=== PATIENT | female | born 1990 | race Caucasian/White ===

== ENCOUNTER 2020-08-23 16:58 | Outpatient (REF) | payer MEDICAID, SELFPAY | END 2020-08-23 16:59 | disposition home or self-care (01) | LOC: HO.LAB 16:58 | PROVIDERS: Visit Provider Internal Medicine | DX: Z20.822 Contact with and (suspected) exposure to COVID-19 (principal) | CPT/HCPCS: 36415; C9803; U0003 ==

== ENCOUNTER 2020-08-26 10:18 | Emergency (ER) | payer MEDICAID, SELFPAY ==
--- NOTE | 2020-08-26 11:36 | XR_ITS ---
EXAMINATION: XR CHEST CLINICAL INFORMATION: Cough with shortness of breath COMPARISON: November 15, 2019 and September 25, 2013 TECHNIQUE: AP portable view of the chest was obtained. FINDINGS: No significant abnormality is noted involving the heart, lungs, mediastinum, bony thorax or soft tissues. XR/XR chest 1V IMPRESSION: No acute disease.
[2020-08-26 11:50] VITALS: BP 138/79; PULSE 79; RESP 16; TEMP 36.8; O2SAT 97; BMI 34.9
--- NOTE | 2020-08-26 12:26 | ED.ASTHMA ---
HPI - Asthma General Chief Complaint: Asthma Stated Complaint: asthma, fever Time Seen by Provider: 08/26/20 11:26 Source: patient Mode of arrival: ambulatory History of Present Illness HPI Narrative: 30-year-old female with a past medical history of asthma presenting to the ED complaining of asthma exacerbation x4 days. Reports dry cough, chest tightness, SOB, rhinorrhea. Reports was recently tested for COVID-19 and found out negative today however symptoms persistent. Admist to relief with albuterol at home. Denies fever, chills, recent travel, [place] edema, sick contacts MD complaint: asthma attack and shortness of breath Related Data Previous Rx's Medication Instructions Recorded benzonatate [Tessalon Perles] 100 mg PO TID PRN #10 cap 08/26/20 fluticasone propionate [Flonase 2 spray INTRANASAL DAILY #9.9 ml 08/26/20 Allergy Relief] Allergies Allergy/AdvReac Type Severity Reaction Status Date / Time SEAFOOD Allergy Unknown ANAPHYLAXIS Uncoded 08/26/20 11:52 Review of Systems Review of Systems: Constitutional: No Weight loss, No Fever, No Chills ENT/Mouth: No Ear Pain, + Nasal Congestion, No Sinus Pain, No Hoarseness, + sore throat, + Rhinorrhea, No Swallowing Difficulty Cardiovascular: + Chest tightness, + SOB Respiratory: + Cough, No Sputum, No Wheezing Gastrointestinal: No Nausea, No Vomiting, No Diarrhea, No Constipation, No Abdominal pain Musculoskeletal: No joint pain, No Myalgias, No Joint Swelling Skin: No Skin Lesions, No rash Neuro: No Weakness, No Numbness, No Paresthesias Yes all other systems are reviewed and are negative [facility] Past Medical History Attestation statement: The following information was validated with the patient. Medical History (Updated 08/26/20 @ 12:31 by DOROTHY Hoskins) Asthma Social History Social History Advance Directives: No Advance Directives Information Provided: No Physical Exam Vital Signs: Vital Signs: Last Vital Signs Temp 98.3 F 08/26/20 11:50 Pulse 79 08/26/20 11:50 Resp 16 08/26/20 11:50 BP 138/79 08/26/20 11:50 Pulse Ox 97 08/26/20 11:50 Body Mass Index 34.9 Const: General: cooperative and healthy appearing Orientation/consciousness: patient oriented x3 Limitations: no limitations HENMT: Head: Yes normal to inspection Ears: hearing grossly normal bilaterally General nose exam: Normal external nose present Face and sinus: Yes normal facial exam Mouth: Normal oral and palatal mucosa present Throat: Yes posterior oropharynx normal, Yes tonsils normal, Yes uvula midline and No peritonsillar mass Eyes: General: appearance normal, both eyes and all related structures EOM: EOMs intact bilaterally Neck: Neck: Yes normal visual inspection and Yes no meningeal signs Resp: Effort & Inspection: normal respiratory effort and no stridor Auscultation: clear to auscultation bilaterally, no crackles, no rales, no rhonchi and no wheezes Cardio: Rate: regular rate Heart sounds: S1 normal heart sound present and S2 normal heart sound present GI: Inspection: Yes normal to inspection Palpation (GI): Soft to palpation and nontender Skin: Rashes: no rashes Wounds: no wounds Neuro: General: patient oriented x3 and no meningeal signs Gait exam (Neuro): Normal gait present Extrem: General: Yes normal to inspection Course Course Course Narrative: Chest x-ray unremarkable Results discussed with patient including worrisome signs symptoms and strict return precautions, she verbalized understanding feel safe for discharge with follow-up with PCP MDM - Asthma MDM Narrative Medical decision making narrative: On exam VSS, NAD/well-appearing, lungs CTA, nontoxic. Concern for viral syndrome/COVID-19 versus asthma exacerbation. Low concern for pneumonia, PE, or ACS without tachycardia or hypoxia Plan: Chest x-ray, COVID-19 testing, re-evaluate Discharge Plan Discharge Clinical Impression: Acute viral syndrome Patient Disposition: Home, Self-Care Instructions: Viral Syndrome (ED) Additional Instructions: Your chest x-ray was unremarkable today in the emergency department Continue taking your home prescribed inhaler/asthma medications You need to have close follow-up with her doctor Flonase it will help with her nasal congestion Tessalon Perles for cough, take as needed If her symptoms persist or worsen, your constant worsening chest pain, shortness of breath, high fevers unresolved Tylenol home return to the ED Based on your symptoms and history we have sent a COVID-19. Although your RESULT IS PENDING at this time. RESULTS should return within 2-7 days. At this time you will be contacted with either NEGATIVE OR POSITIVE results. -Please wait until we contact you for your results. At this time you will be okay for discharge. Please plan for self quarantine for up to 14 days. Do not expose yourself to others. You may not go to work. If testing does come back negative you may return to activities as long as you are no longer having any symptoms for at least 3 days. Please continue to follow cold instructions and wash your hands frequently. You may take Tylenol as directed on the bottle for pain or fever. Patient seen in the emergency department on 02/13/2020 and should be excused from work until negative test results AND until 72 hours without any symptoms AND at least 10 days have passed since symptoms first appeared or since last exposure to COVID-19 positive patient CDC Guidelines for home isolation: - Stay away from others - WEAR A MASK if you are sick AND STAY HOME - Cover your mouth and nose with a tissue when you cough or sneeze. Dispose of tissues in a lined trash can and wash your hands immediately with soap and water for at least 20 seconds. If soap and water are not available, clean hands with alcohol-based hand environmental construction engineer that contains at least 60% alcohol. - Clean your hands often with soap and water for at least 20 seconds - Avoid touching your eyes, nose and mouth with unwashed hands - Do not share dishes, drinking glasses, cups, eating utensils, towels, or bedding with other people in your home. After using these items, wash them thoroughly with soap and water or put in the assistant import manager. - Clean high-touch surfaces in your isolation area ( sick room and bathroom) every day; let a caregiver clean and disinfect high-touch surfaces in other areas of the home. Clean the area or item with soap and water or another detergent if it is dirty. Then, use a household disinfectant. - Limit contact with pets and animals: If you must care for a pet, wash your hands before and after interacting with them) Prescriptions: New fluticasone propionate [Flonase Allergy Relief] 50 mcg/actuation spray,suspension 2 spray intranasal DAILY Qty: 9.9 RF: 0 benzonatate [Tessalon Perles] 100 mg capsule 100 mg PO TID PRN (Reason: cough) Qty: 10 RF: 0 Referrals: Karolyn Kramer DO [Primary Care Provider] - 2 days
== END 2020-08-26 13:54 | disposition home or self-care (01) ==
PROVIDERS: Physician Assistant; Emergency Provider Emergency Medicine Emergency Medical Services; PCP Family Medicine
DX: B34.9 Viral infection, unspecified (principal); Z20.828 Contact with and (suspected) exposure to other viral communicable diseases; J45.909 Unspecified asthma, uncomplicated
CPT/HCPCS: 36415; 71045; 99283; U0003

== ENCOUNTER 2021-05-30 09:45 | Emergency (ER) | payer MEDICAID, SELFPAY ==
[2021-05-30 09:51] VITALS: BP 114/69; PULSE 79; RESP 18; TEMP 37; O2SAT 96; BMI 36.4
--- NOTE | 2021-05-30 10:25 | ED.SOB ---
HPI - SOB/Dyspnea General Chief Complaint: Dyspnea Stated Complaint: SOB Time Seen by Provider: 05/30/21 10:25 Source: patient Mode of arrival: ambulatory Limitations: no limitations History of Present Illness HPI Narrative: ran out of inhailers at home. [place] short of breath this morning. Patient still smoking. Patient had albuterol treatment in the ambulance MD elicited complaint: shortness of breath and asthma attack Pertinent past history: asthma Onset (ago): hour(s) Timing: improved Severity: mild Exacerbating factors: exertion Related Data Previous Rx's Medication Instructions Recorded albuterol sulfate 90 mcg/actuation 1 inh INHALATION QID PRN #8.5 g 05/30/21 aerosol inhaler Allergies Allergy/AdvReac Type Severity Reaction Status Date / Time SEAFOOD Allergy Severe ANAPHYLAXIS Uncoded 05/06/20 16:00 sea food Allergy Unknown anaphylaxis Uncoded 10/13/15 00:00 Review of Systems Constitutional: Constitutional: Reports no additional constitutional complaints Eyes: Eyes: Reports no additional eye complaints ENT: Denies dizziness Cardiovascular: Cardiovascular: Reports no additional cardiovascular complaints Respiratory: Respiratory: Reports as per HPI Gastrointestinal: Gastrointestinal: Reports no additional gastrointestinal complaints Genitourinary: Genitourinary: Reports no additional female genitourinary complaints Musculoskeletal: Musculoskeletal: Reports no additional musculoskeletal complaints Integumentary/Breasts: Skin/Breast: Denies rash Neurologic: Reports system reviewed and no additional complaints, except as documented, Denies dizziness and Denies Sensory deficit (Neuro) Psychiatric: Psychiatric: Denies anxiety PMFSH Social History Social History Patient Tobacco Use Status: Current everyday Tobacco user Use of substances other than those prescribed or required for medical reasons: No Advance Directives: No Advance Directives Information Provided: No Physical Exam Vital Signs: Vital Signs: Last Vital Signs Temp 98.6 F 05/30/21 09:51 Pulse 75 05/30/21 10:47 Resp 18 05/30/21 10:47 BP 146/93 H 05/30/21 10:47 Pulse Ox 98 05/30/21 10:47 Body Mass Index 36.4 Const: General: healthy appearing Nutritional Appearance: average body habitus Orientation/consciousness: oriented to person and patient oriented x3 Limitations: no limitations HENMT: Head: Yes normal to inspection Ears: external ears normal General nose exam: Normal external nose present Mouth: Normal oral and palatal mucosa present and oropharynx normal Throat: Yes posterior oropharynx normal Eyes: General: appearance normal, both eyes and all related structures Neck: Other: supple Neck: Yes normal visual inspection Chest: Chest palpation & inspection: normal inspection of the chest Resp: Other: mild wheeze bilaterally Cardio: Jugular venous distension: no JVD Rate: regular rate Rhythm: regular rhythm Heart sounds: S1 normal heart sound present and S2 normal heart sound present GI: Inspection: Yes normal to inspection Palpation (GI): Soft to palpation, nontender and No hepatosplenomegaly present Auscultation: normal bowel sounds : General: Yes no CVA tenderness Back/Spine/Pelvis: Back: no CVA tenderness Skin: General skin exam: no rashes or lesions noted Neuro: General: oriented to person and patient oriented x3 Cranial nerves: Yes CN's II-XII intact bilaterally Motor exam (neuro): 5/5 motor strength present throughout Sensory Exam: No Sensory deficit (Neuro) Extrem: General: Yes normal to inspection Psych: Appearance: grossly normal Course Reevaluation(s) Reevaluation #1: good air movement, minimal wheeze will dc home on albuterol Time: 11:23 MDM - SOB/Dyspnea Lab Data Labs: Lab Results 05/30/21 Range/Units 10:46 COVID-19 ([facility]) Negative (Negative) COVID-19 Clin Com See Note Discharge Plan Discharge Clinical Impression: Asthma with exacerbation Qualifiers: Asthma severity: mild Asthma persistence: intermittent Qualified Code(s): J45.21 - Mild intermittent asthma with (acute) exacerbation Patient Disposition: Home, Self-Care Instructions: Asthma (ED) Prescriptions: New albuterol sulfate 90 mcg/actuation HFA aerosol inhaler 1 inh inhalation QID PRN (Reason: shortness of breath or wheezing) Qty: 8.5 RF: 0 Referrals: Karolyn Kramer DO [Primary Care Provider] - 1 week
[2021-05-30] MEDS: Albuterol Sulfate 90 MCG 8 GM INHALER 4 PUFF INHALE (10:44)
[2021-05-30 10:47] VITALS: BP 146/93; PULSE 75; RESP 18; O2SAT 98
[2021-05-30 11:06] LABS: COVID-19 Test Negative (Negative); IDNOW Serial# 9DD0AD1C
== END 2021-05-30 11:57 | disposition home or self-care (01) ==
PROVIDERS: Emergency Provider Emergency Medicine; PCP Family Medicine
DX: J45.21 Mild intermittent asthma with (acute) exacerbation (principal); Z20.822 Contact with and (suspected) exposure to COVID-19
CPT/HCPCS: 36415; 87635; 99284

== ENCOUNTER 2023-02-28 17:07 | Emergency (ER) | payer MEDICAID, SELFPAY | END 2023-02-28 21:04 | disposition left against medical advice (07) | LOC: HO.ED 20:03 | PROVIDERS: Emergency Provider Emergency Medicine | DX: R06.02 Shortness of breath (principal); F41.9 Anxiety disorder, unspecified ==

== ENCOUNTER 2023-02-28 19:58 | Emergency (ER) | payer MEDICAID, SELFPAY ==
--- NOTE | ~2023-02-28 | XR_ITS ---
EXAMINATION: XR CHEST CLINICAL INFORMATION: Wheezing. COMPARISON: Chest radiograph 08/26/2020. TECHNIQUE: 2 views of the chest were obtained. FINDINGS: No significant abnormality is noted involving the heart, lungs, mediastinum, bony thorax or soft tissues. XR/XR chest 2V IMPRESSION: Unremarkable examination.
[2023-02-28 20:15] VITALS: BP 134/87; PULSE 106; RESP 18; TEMP 36.6; O2SAT 100; BMI 36.3
--- NOTE | 2023-02-28 20:15 | ED_ITS ---
HPI - General Adult General Chief complaint: Dyspnea Stated complaint: Asthma attack Time Seen by Provider: 02/28/23 22:15 Source: patient Mode of arrival: ambulatory History of Present Illness HPI narrative: This is a 33-year-old female who arrives with several days of worsening shortness of breath and has known asthma, but has run out of her medications. She denies any fever, chills but has had increased cough but otherwise no GI or symptoms. Related Data Previous Rx's Medication Instructions Recorded benzonatate 100 mg capsule 100 mg PO TID PRN cough #10 caps 08/26/20 (Tessalon Perles) fluticasone propionate 50 2 spray intranasal DAILY #9.9 mL 08/26/20 mcg/actuation nasal spray,suspension (Flonase Allergy Relief) albuterol sulfate 90 mcg/actuation 1 inh inhalation QID PRN shortness 05/30/21 aerosol inhaler of breath or wheezing #8.5 grams montelukast 10 mg tablet 10 mg PO BEDTIME #20 tabs 05/30/21 (Singulair) prednisone 50 mg tablet 50 mg PO DAILY 4 days #4 tabs 02/28/23 Allergies Allergy/AdvReac Type Severity Reaction Status Date / Time SEAFOOD Allergy Severe ANAPHYLAXIS Uncoded 02/28/23 20:18 sea food Allergy Unknown anaphylaxis Uncoded 02/28/23 20:18 Review of Systems Review of Systems: Pertinent positives and negatives as stated in HPI [facility] Past Medical History Source: nursing notes reviewed Medical History Asthma Social History Social History Alcohol intake: never Patient Tobacco Use Status: Current everyday Tobacco user Smoked in Last 30 Days: Yes Use of substances other than those prescribed or required for medical reasons: No Advance Directives: No Advance Directives Information Provided: No Physical Exam ED Vital Signs: Vital Signs - 24 hr 02/28/23 20:15 02/28/23 22:18 02/28/23 22:42 Temperature 97.9 F 98.2 F 98.5 F Pulse Rate 106 H 94 95 Respiratory Rate 18 16 18 Blood Pressure 134/87 118/70 130/73 Pulse Oximetry 100 97 95 Oxygen Delivery Method Room Air Room Air Room Air 02/28/23 23:18 02/28/23 23:46 02/28/23 23:45 Temperature 99.9 F 99.9 F Pulse Rate 99 95 94 Respiratory Rate 20 16 16 Blood Pressure 136/81 136/81 Pulse Oximetry 95 98 Oxygen Delivery Method Room Air Room Air BMI result Body Mass Index 36.3 VITAL SIGNS: Reviewed. GENERAL: Well developed, well nourished, in no acute distress. HEAD: Normocephalic/atraumatic EYES: PERRLA, EOMI EARS: Ext canals without abnormality, TMs non-bulging and non-erythematous NOSE: Nares patent bilateral OROPHARYNX: no oral lesions noted, posterior pharynx clear and non-erythematous without noted tonsillar enlargement/erythema/exudates NECK: Supple, no adenopathy LUNGS: Good inspiratory effort without decrease in breath sounds but noted expiratory wheeze bilaterally and mild tachypnea but no increased work of breathing. SpO2<95> CARDIOVASCULAR: Regular rate and rhythm without noted murmurs ABDOMEN: Soft, non-tender, non-distended with bowel sounds. MUSCULOSKELETAL: No tenderness, deformities, or effusions noted on gross inspection. EXTREMITIES: No cyanosis, clubbing or edema. SKIN: Inspection of the skin reveals no rashes NEUROLOGIC: Alert and oriented x 4. Strength and sensation to light touch were grossly intact x 4. Course Course Course Narrative: This is a rapid medical exam: Additional HPI, ROS, PE not included below will be deferred to primary provider. Patient is a 33-year-old female with history of asthma presenting to ED with complaint of shortness of breath, has used her rescue inhaler a lot today. Does not have a nebulizer at home. Patient reports smoking 3-4 cigarettes daily, smoked one cigarette today. Also complains of midsternal chest pain. Symptoms began today. Denies fevers. Inspiratory and expiratory wheezing as well as decreased lung sounds throughout. Plan: EKG, labs, CXR Medications Administered Discontinued Medications Generic Name Dose Route Start Last Admin Trade Name Freq PRN Reason Stop Dose Admin Albuterol Sulfate 2 puff 02/28/23 22:55 02/28/23 23:17 Albuterol Sulfate 90 Mcg 8 Gm Inhaler INHALE 02/28/23 22:56 2 puff ONCE ONE Administration Potassium Chloride 60 meq 02/28/23 22:58 02/28/23 23:44 Potassium Chloride Er 20 Meq Tab.Er.Prt PO 02/28/23 22:59 60 meq ONCE ONE Administration Prednisone 50 mg 02/28/23 22:55 02/28/23 23:14 Prednisone 10 Mg Tablet PO 02/28/23 22:56 50 mg ONCE ONE Administration Medical Decision Making Medical Decision Making [facility] Narrative: 33-year-old female with history and clinical presentation, DDX: Mild asthma exacerbation without hypoxia, no clinical suspicion for pneumonia, PE, anemia. I reviewed all investigations and the hematologic indices are grossly within normal limits except an expected eosinophilia-5.3. On chemistry indices there is a noted mild hypokalemia which will be repleted with 60 mEq of potassium chloride. Viral testing is negative, chest x-ray without evidence to suggest pneumonia otherwise my interpretation is in agreement with radiology's impression. Differential Diagnosis Differential Diagnoses: The differential diagnosis associated with the presentation includes Admission/Observation Consideration of admission/observation: Escalation of care including admission/observation considered Lab Data [facility] Lab Attestation statement: I reviewed the patient's lab results. Please see the discussion above 02/28/23 20:28 02/28/23 20:29 Labs: Lab Results 02/28/23 02/28/23 02/28/23 Range/Units 20:28 20:28 20:28 WBC 8.3 (4.8-10.8) X10*3/uL RBC 4.38 (4.20-5.50) X10*6/uL Hgb 12.6 (12.0-16.0) g/dl Hct 37.8 (37.0-47.0) % MCV 86.3 (80.0-98.0) fL MCH 28.8 (27.0-33.0) pg MCHC 33.3 (31.0-35.0) g/dl RDW 13.7 (11.0-16.0) % Plt Count 260 (160-400) X10*3/uL MPV 9.4 (9.4-12.3) fL Immature Gran % (Auto) 0.2 (0.0-0.4) % Neut % (Auto) 61.0 (45-73) % Lymph % (Auto) 25.8 (20-40) % [place] % (Auto) 7.1 (2-11) % Eos % (Auto) 5.3 H (0-4) % Baso % (Auto) 0.6 (0-2) % Lymph # (Auto) 2.1 (1.2-4.9) X10*3/uL [place] # (Auto) 0.6 (0.1-1.2) X10*3/uL Eos # (Auto) 0.4 (0.0-0.4) X10*3/uL Baso # (Auto) 0.1 (0.0-0.2) X10*3/uL Abs Immat Gran (auto) 0.02 (0.00-0.03) X10*3/uL Absolute Neuts (auto) 5.1 (2.0-8.3) x10*3/uL Absolute Nucleated RBC 0.000 (0.0-0.012) X10*3/uL Nucleated RBC % (auto) 0.0 (0.0-0.2) /100WBC Sodium (135-145) mmol/L Potassium (3.3-5.1) mmol/L Chloride (96-108) mmol/L Carbon Dioxide (22-29) mmol/L Anion Gap (12-20) BUN (9-16) mg/dL Creatinine (0.5-1.4) mg/dL Estim Creat Clear Calc Estimated GFR Random Glucose (60-115) mg/dL Calcium (8.4-10.2) mg/dL Magnesium (1.6-2.6) mg/dL Troponin I High Sens < 2.7 (<3.5-17.0) ng/L COVID-19 ([facility]ON) (Negative) COVID-19 Clin Com Influenza Type A (TERESSA) Negative (Negative) Influenza Type B (TERESSA) Negative (Negative) Influenza A & B Note See Note 02/28/23 02/28/23 Range/Units 20:29 20:29 WBC (4.8-10.8) X10*3/uL RBC (4.20-5.50) X10*6/uL Hgb (12.0-16.0) g/dl Hct (37.0-47.0) % MCV (80.0-98.0) fL MCH (27.0-33.0) pg MCHC (31.0-35.0) g/dl RDW (11.0-16.0) % Plt Count (160-400) X10*3/uL MPV (9.4-12.3) fL Immature Gran % (Auto) (0.0-0.4) % Neut % (Auto) (45-73) % Lymph % (Auto) (20-40) % [place] % (Auto) (2-11) % Eos % (Auto) (0-4) % Baso % (Auto) (0-2) % Lymph # (Auto) (1.2-4.9) X10*3/uL [place] # (Auto) (0.1-1.2) X10*3/uL Eos # (Auto) (0.0-0.4) X10*3/uL Baso # (Auto) (0.0-0.2) X10*3/uL Abs Immat Gran (auto) (0.00-0.03) X10*3/uL Absolute Neuts (auto) (2.0-8.3) x10*3/uL Absolute Nucleated RBC (0.0-0.012) X10*3/uL Nucleated RBC % (auto) (0.0-0.2) /100WBC Sodium 142 (135-145) mmol/L Potassium 3.1 L (3.3-5.1) mmol/L Chloride 110 H (96-108) mmol/L Carbon Dioxide 21 L (22-29) mmol/L Anion Gap 14 (12-20) BUN 6 L (9-16) mg/dL Creatinine 0.82 (0.5-1.4) mg/dL Estim Creat Clear Calc 112.6 Estimated GFR > 60 Random Glucose 112 (60-115) mg/dL Calcium 8.9 (8.4-10.2) mg/dL Magnesium 1.9 (1.6-2.6) mg/dL Troponin I High Sens (<3.5-17.0) ng/L COVID-19 ([facility]ON) Negative (Negative) COVID-19 Clin Com See Note Influenza Type A (TERESSA) (Negative) Influenza Type B (TERESSA) (Negative) Influenza A & B Note Independent Interpretation I performed an independent interpretation of an: EKG Interpretation: Sinus tachycardia, HR-104, no STEMI, VT/QRS/QTC is within normal limits. Radiology Impression Radiologist Impression: No pneumonia, otherwise my interpretation is in agreement with radiology's impression. External Record Review External record reviewed: Outpatient record and Prior outpatient labs Chronic Conditions Patient?s care impacted by: Other Asthma Discharge Plan Discharge Clinical Impression: Asthma with exacerbation Patient Disposition: Home, Self-Care Instructions: Asthma (ED) Additional Instructions: 1. I recommend smoking cessation. 2. I recommend that you start taking [id number] Claritin and Flonase for control over seasonal allergies. 3. Complete the short course of steroids as prescribed. 4. Please use the inhaler, 2 puffs, every 46 hours as needed for shortness of breath. 5. Keep your scheduled appointment on March 09. Return to the ER for any worsening symptoms. Prescriptions: New prednisone 50 mg tablet 50 mg PO DAILY 4 Days Qty: 4 0RF No Action fluticasone propionate [Flonase Allergy Relief] 50 mcg/actuation spray,suspension 2 spray intranasal DAILY Qty: 9.9 0RF Rx Instructions: administer into each nostril benzonatate [Tessalon Perles] 100 mg capsule 100 mg PO TID PRN (Reason: cough) Qty: 10 0RF albuterol sulfate 90 mcg/actuation HFA aerosol inhaler 1 inh inhalation QID PRN (Reason: shortness of breath or wheezing) Qty: 8.5 0RF montelukast [Singulair] 10 mg tablet 10 mg PO BEDTIME Qty: 20 0RF Referrals: Karolyn Kramer DO [Primary Care Provider] - Interventions: ED Discharge Assessment Last Done: 02/28/23 23:46 Discharge Date/Time: 02/28/23 23:47
--- NOTE | 2023-02-28 20:17 | ECG_ITS ---
Test Reason : SOB Blood Pressure : / mmHG Vent. Rate : 104 BPM Atrial Rate : 104 BPM P-R Int : 158 ms QRS Dur : 078 ms QT Int : 334 ms P-R-T Axes : 046 050 -08 degrees QTc Int : 439 ms Sinus tachycardia Nonspecific T wave abnormality When compared with ECG of 28-JUN-2015 19:23, No significant change was found Referred By: Jessie Mena Electronically Signed By:BK ALMEIDA MD
[2023-02-28 20:35] LABS: MANUAL DIFF FLAG NO
[2023-02-28 20:38] LABS: Basophils Absolute Auto 0.1 X10*3/uL (0.0-0.2); Basophils Percent Auto 0.6 % (0-2); Eosinophils Absolute Auto 0.4 X10*3/uL (0.0-0.4); Eosinophils Percent Auto 5.3 % (0-4); Hematocrit 37.8 % (37.0-47.0); Hemoglobin 12.6 g/dl (12.0-16.0); Imm Gran Abs Auto 0.02 X10*3/uL (0.00-0.03); Imm Gran Pct Auto 0.2 % (0.0-0.4); Lymphocytes Absolute Auto 2.1 X10*3/uL (1.2-4.9); Lymphocytes Percent Auto 25.8 % (20-40); Mean Corpuscular HGB Conc 33.3 g/dl (31.0-35.0); Mean Corpuscular Hemoglobin 28.8 pg (27.0-33.0); Mean Corpuscular Volume 86.3 fL (80.0-98.0); Mean Platelet Volume 9.4 fL (9.4-12.3); Monocytes Absolute Auto 0.6 X10*3/uL (0.1-1.2); Monocytes Percent Auto 7.1 % (2-11); Neutrophils Absolute Auto 5.1 x10*3/uL (2.0-8.3); Platelet Count 260 X10*3/uL (160-400); Red Blood Count 4.38 X10*6/uL (4.20-5.50); Red Cell Distribution Width 13.7 % (11.0-16.0); White Blood Count 8.3 X10*3/uL (4.8-10.8)
[2023-02-28 20:52] LABS: Anion Gap 14 (12-20); Blood Urea Nitrogen 6 mg/dL (9-16); Calcium 8.9 mg/dL (8.4-10.2); Carbon Dioxide 21 mmol/L (22-29); Chloride 110 mmol/L (96-108); Creatinine Clr Calc Pharmacy 112.6; Estimated Glomerular Filt Rate > 60; Glucose Random 112 mg/dL (60-115); Potassium 3.1 mmol/L (3.3-5.1); Sodium 142 mmol/L (135-145)
[2023-02-28 20:58] LABS: COVID-19 Test Negative (Negative); IDNOW Serial# 08D9AD1C
[2023-02-28 20:58] LABS: IDNOW Serial# BCCEAD1C; Influenza A Negative (Negative); Influenza B2 Negative (Negative)
[2023-02-28 21:02] LABS: Troponin-I High Sensitivity < 2.7 ng/L (<3.5-17.0)
[2023-02-28 22:18] VITALS: BP 118/70; PULSE 94; RESP 16; TEMP 36.8; O2SAT 97
[2023-02-28 22:42] VITALS: BP 130/73; PULSE 95; RESP 18; TEMP 36.9; O2SAT 95
[2023-02-28] MEDS: predniSONE 10 MG TABLET 50 MG PO (23:14)
[2023-02-28] MEDS: Albuterol Sulfate 90 MCG 8 GM INHALER 2 PUFF INHALE (23:17)
[2023-02-28 23:18] VITALS: PULSE 99; RESP 20; O2SAT 97
[2023-02-28 23:29] LABS: Magnesium 1.9 mg/dL (1.6-2.6)
[2023-02-28] MEDS: Potassium Chloride ER 20 MEQ TAB.ER.PRT 60 MEQ PO (23:44)
[2023-02-28 23:45] VITALS: BP 136/81; PULSE 94; RESP 16; TEMP 37.7; O2SAT 98
[2023-02-28 23:46] VITALS: BP 136/81; PULSE 95; RESP 16; TEMP 37.7; O2SAT 95
== END 2023-02-28 23:47 | disposition home or self-care (01) ==
PROVIDERS: Registered Nurse Emergency; Emergency Provider Student in an Organized Health Care Education/Training Program; PCP Family Medicine
DX: J45.901 Unspecified asthma with (acute) exacerbation (principal); Z20.822 Contact with and (suspected) exposure to COVID-19; F17.200 Nicotine dependence, unspecified, uncomplicated; Z79.899 Other long term (current) drug therapy
CPT/HCPCS: 36415; 71046; 80048; 83735; 84484; 85025; 87502; 87635; 93005; 94640; 99284; 99285

== ENCOUNTER → 2023-02-28 20:17 | Outpatient (BNV) | payer MEDICAID, SELFPAY | PROVIDERS: Emergency Provider Student in an Organized Health Care Education/Training Program; PCP Family Medicine; Visit Provider Internal Medicine Cardiovascular Disease | DX: R00.0 Tachycardia, unspecified (principal) | CPT/HCPCS: 93010 ==

== ENCOUNTER 2023-03-01 12:40 | Emergency (ER) | payer MEDICAID, SELFPAY ==
--- NOTE | ~2023-03-01 | XR_ITS ---
EXAMINATION: XR CHEST CLINICAL INFORMATION: Shortness of breath COMPARISON: 02/28/2023 TECHNIQUE: Frontal view of the chest was obtained. FINDINGS: No significant abnormality is noted involving the heart, lungs, mediastinum, bony thorax or soft tissues. XR/XR chest 1V IMPRESSION: Unremarkable examination.
[2023-03-01 12:47] VITALS: BP 110/78; BP 146/75; PULSE 110; PULSE 120; RESP 20; TEMP 37.3; O2SAT 98; BMI 35.3
--- NOTE | 2023-03-01 12:52 | ED_ITS ---
HPI - Asthma General Chief Complaint: Asthma Stated Complaint: sob, chest tight Time Seen by Provider: 03/01/23 12:52 Source: patient and EMS Mode of arrival: EMS Limitations: no limitations History of Present Illness HPI Narrative: Patient is a 33 year old assigned female at with a history of asthma presenting to the emergency department today with continued asthma exacerbation. Patient states that she was seen here yesterday for an asthma exacerbation, was feeling better, and now feels poorly again. Patient states that she does not have an inhaler at home. Patient states that she didn't pick her prednsione up until today. Patient denies any dizziness, lightheadedness, abdominal pain, nausea, vomiting, fever, chills, blurry vision, double vision, loss of vision, chest pain, difficulty breathing, shortness of breath, back pain, night sweats, pain with urination, increased urinary frequency, increased urinary urgency, blood in her urine or stool, syncope or a near syncopal episode, recent trauma or falls, bowel incontinence, bladder incontinence, bowel retention, bladder retention, or any other complaints at this time. MD complaint: asthma attack Onset (ago): day(s) (2) Severity: mild Context: ran out of meds and medication non-compliance Associated symptoms: dry cough Asthma History: childhood onset Related Data Current Asthma Therapy: inhaled bronchodilator and recent oral steroid Previous Rx's Medication Instructions Recorded benzonatate 100 mg capsule 100 mg PO TID PRN cough #10 caps 08/26/20 (Tessalday Marroquin) fluticasone propionate 50 2 spray intranasal DAILY #9.9 mL 08/26/20 mcg/actuation nasal spray,suspension (Flonase Allergy Relief) albuterol sulfate 90 mcg/actuation 1 inh inhalation QID PRN shortness 05/30/21 aerosol inhaler of breath or wheezing #8.5 grams montelukast 10 mg tablet 10 mg PO BEDTIME #20 tabs 05/30/21 (Singulair) prednisone 50 mg tablet 50 mg PO DAILY 4 days #4 tabs 02/28/23 albuterol sulfate 1.25 mg/3 mL 1.25 mg (3 mL) inhalation QID PRN 03/01/23 solution for nebulization shortness of breath or wheezing #90 mL albuterol sulfate 90 mcg/actuation 1 inh inhalation QID PRN shortness 03/01/23 aerosol inhaler of breath or wheezing #8.5 grams Allergies Allergy/AdvReac Type Severity Reaction Status Date / Time SEAFOOD Allergy Severe ANAPHYLAXIS Uncoded 02/28/23 20:18 sea food Allergy Unknown anaphylaxis Uncoded 02/28/23 20:18 Review of Systems Constitutional: Constitutional: Reports no additional constitutional complaints, Denies chills, Denies fever(s) and Denies night sweats Eyes: Eyes: Reports no additional eye complaints, Denies blurry vision, Denies change in vision, Denies diplopia, Denies eye discharge, Denies loss of vision and Denies eye pain ENT: Denies dizziness Cardiovascular: Cardiovascular: Reports no additional cardiovascular complaints, Denies chest pain, Denies lightheadedness, Denies Loss of Consciousness and Denies dyspnea Respiratory: Respiratory: Reports no additional respiratory complaints, Reports cough, Denies dyspnea and Reports wheezing Gastrointestinal: Gastrointestinal: Reports no additional gastrointestinal complaints, Denies abdominal pain, Denies melena, Denies hematochezia, Denies change in bowel habits and Denies change in stool character Genitourinary: Genitourinary: Denies hematuria, Denies urinary frequency, Denies dysuria, Denies urinary incontinence, Denies urinary hesitancy and Denies urinary urgency Musculoskeletal: Musculoskeletal: Reports no additional musculoskeletal complaints, Denies numbness and Denies tingling Neurologic: Denies dizziness, Denies loss of vision, Denies numbness and Denies tingling Psychiatric: Psychiatric: Reports no additional psychiatric complaints Endocrine: Endocrine: Reports no additional endocrine complaints Hematologic/Lymphatic: Hematologic/Lymphatic: Reports no additional hematologic/lymphatic complaints Allergic/Immunologic: Allergic/Immunologic: Reports no additional allergic/immunologic complaints and Reports wheezing PMFSH Past Medical History Attestation statement: The following information was validated with the patient. Source: old records reviewed and nursing notes reviewed Medical History Asthma Social History Social History Alcohol intake: never Patient Tobacco Use Status: Current everyday Tobacco user Smoked in Last 30 Days: Yes Use of substances other than those prescribed or required for medical reasons: No Advance Directives: No Advance Directives Information Provided: Yes Patient : No Physical Exam Vital Signs: Vital Signs: Last Vital Signs Temp 99.1 F 03/01/23 12:47 Pulse 108 H 03/01/23 14:03 Resp 29 H 03/01/23 14:03 BP 120/82 03/01/23 14:03 Pulse Ox 96 03/01/23 14:03 O2 Del Method Room Air 03/01/23 14:03 Oxygen Flow Rate 5 03/01/23 12:47 BMI result Body Mass Index 35.3 Const: General: cooperative, no acute distress, alert and awake Nutritional Appearance: well nourished Orientation/consciousness: patient oriented x3 Limitations: no limitations HEENT: Head: Yes normal to inspection and Yes atraumatic Ears: hearing grossly normal bilaterally and external ears normal General nose exam: Normal external nose present, no nasal discharge noted and no epistaxis Face and sinus: Yes normal facial exam, No abrasion and No laceration Mouth: Normal oral and palatal mucosa present, no drooling and no muffled voice Eyes: General: appearance normal, both eyes and all related structures Periorbital: periorbital findings normal Eyelids: Yes eyelids normal Conjunctivae: conjunctivae normal Pupils: Equal, round and reactive pupils present EOM: EOMs intact bilaterally Neck: Neck: Yes normal visual inspection, Yes full ROM and Yes no lymphadenopathy Chest: Chest palpation & inspection: normal inspection of the chest Resp: Effort & Inspection: normal respiratory effort and able to speak in complete sentences Auscultation: wheezes scattered wheezes Cardio: Rate: regular rate Rhythm: regular rhythm GI: Inspection: Yes normal to inspection Neuro: General: patient oriented x3 and moves all extremities Cranial nerves: Yes Equal, round and reactive pupils present Cognition (Neuro): n ormal cognition Motor exam (neuro): 5/5 motor strength present throughout Sensory Exam: Normal double simultaneous stimulation for sensation Coordination: [id number] test normal Extrem: General: Yes normal to inspection, Yes full ROM and Yes capillary refill normal Psych: Appearance: grossly normal Mental Status: mental status grossly normal Affect: normal affect Attitude: cooperative Thought process: Normal thought process present Thought content: Normal thought content present Insight: Good insight present (Psych) Medications Administered Discontinued Medications Generic Name Dose Route Start Last Admin Trade Name Freq PRN Reason Stop Dose Admin Albuterol Sulfate 7.5 mg/ 0 mg 03/01/23 12:55 03/01/23 13:09 Albuterol/Ipratropium 3 ml INHALE 03/01/23 12:56 10 each ONCE ONE Administration Magnesium Sulfate 2 gm in 50 mls @ 25 mls/hr 03/01/23 12:55 03/01/23 15:51 Magnesium Sulfate/H2o IV 03/01/23 14:54 Infused ONCE ONE Infusion Methylprednisolone Sodium Succinate 60 mg 03/01/23 12:52 03/01/23 14:02 Methylprednisolone Sod Succ 125 Mg/2 Ml Vial IM 03/01/23 12:53 60 mg ONCE ONE Administration Medical Decision Making Medical Decision Making [facility] Narrative: Patient is a 33 year old assigned female at with a history of asthma presenting to the emergency department today with a persistent asthma exacerbation. Patient's physical exam showed wheezing but was otherwise unremarkable. Patient's labs showed an elevated white blood cell count of 13.1 but were otherwise grossly normal. This elevated WBC count is likely secondary to recent steroid use. Patient's chest x-ray showed no acute process. I explained my physical exam findings as well as all test results to the patient. I answered all questions asked by the patient. Patient received IV magnesium, solu-medrol, and a duoneb breathing treatment which she stated helped her symptoms significantly. Patient was feeling better and ready for discharge when she got up to go to the bathroom and felt like she was wheezing again and requested another breathing treatment. Patient's disposition pending re- evaluation after an additional breathing treatment. Patient signed out to kala [facility] [place] [facility]. Differential Diagnosis Differential Diagnoses: The differential diagnosis associated with the presentation includes asthma exacerbation asthma attack URI Viral illness Wheezing Cough Admission/Observation Consideration of admission/observation: Escalation of care including admission/observation considered Patient's disposition pending re-evaluation after repeat breathing treatment. Lab Data [facility] Lab Attestation statement: I reviewed the patient's lab results. My interpretation of these results are in the [facility] portion of this chart. 03/01/23 14:34 03/01/23 14:34 Labs: Lab Results 03/01/23 03/01/23 03/01/23 Range/Units 14:34 14:34 14:34 WBC 13.1 H (4.8-10.8) X10*3/uL RBC 4.55 (4.20-5.50) X10*6/uL Hgb 13.0 (12.0-16.0) g/dl Hct 38.8 (37.0-47.0) % MCV 85.3 (80.0-98.0) fL MCH 28.6 (27.0-33.0) pg MCHC 33.5 (31.0-35.0) g/dl RDW 13.9 (11.0-16.0) % Plt Count 272 (160-400) X10*3/uL MPV 9.4 (9.4-12.3) fL Immature Gran % (Auto) 0.3 (0.0-0.4) % Neut % (Auto) 93.5 H (45-73) % Lymph % (Auto) 4.0 L (20-40) % [place] % (Auto) 2.1 (2-11) % Eos % (Auto) 0.0 (0-4) % Baso % (Auto) 0.1 (0-2) % Lymph # (Auto) 0.5 L (1.2-4.9) X10*3/uL [place] # (Auto) 0.3 (0.1-1.2) X10*3/uL Eos # (Auto) 0.0 (0.0-0.4) X10*3/uL Baso # (Auto) 0.0 (0.0-0.2) X10*3/uL Abs Immat Gran (auto) 0.04 H (0.00-0.03) X10*3/uL Absolute Neuts (auto) 12.3 H (2.0-8.3) x10*3/uL Absolute Nucleated RBC 0.000 (0.0-0.012) X10*3/uL Nucleated RBC % (auto) 0.0 (0.0-0.2) /100WBC Smear Tech's Comments VERIFIED Sodium 138 (135-145) mmol/L Potassium 3.3 (3.3-5.1) mmol/L Chloride 108 (96-108) mmol/L Carbon Dioxide 18 L (22-29) mmol/L Anion Gap 15 (12-20) BUN 7 L (9-16) mg/dL Creatinine 0.80 (0.5-1.4) mg/dL Estim Creat Clear Calc 113.6 Estimated GFR > 60 Random Glucose 156 H (60-115) mg/dL Calcium 9.8 D (8.4-10.2) mg/dL Total Bilirubin 0.9 (0.0-1.0) mg/dL AST 18 (5-31) U/L ALT 28 (0-31) U/L Alkaline Phosphatase 58 (39-117) U/L Total Protein 7.0 (6.5-8.0) g/dL Albumin 4.1 (3.5-5.0) g/dL COVID-19 (HEORN) (Negative) COVID-19 Clin Com Influenza Type A (TERESSA) Negative (Negative) Influenza Type B (TERESSA) Negative (Negative) Influenza A & B Note See Note 03/01/23 Range/Units 14:36 WBC (4.8-10.8) X10*3/uL RBC (4.20-5.50) X10*6/uL Hgb (12.0-16.0) g/dl Hct (37.0-47.0) % MCV (80.0-98.0) fL MCH (27.0-33.0) pg MCHC (31.0-35.0) g/dl RDW (11.0-16.0) % Plt Count (160-400) X10*3/uL MPV (9.4-12.3) fL Immature Gran % (Auto) (0.0-0.4) % Neut % (Auto) (45-73) % Lymph % (Auto) (20-40) % [place] % (Auto) (2-11) % Eos % (Auto) (0-4) % Baso % (Auto) (0-2) % Lymph # (Auto) (1.2-4.9) X10*3/uL [place] # (Auto) (0.1-1.2) X10*3/uL Eos # (Auto) (0.0-0.4) X10*3/uL Baso # (Auto) (0.0-0.2) X10*3/uL Abs Immat Gran (auto) (0.00-0.03) X10*3/uL Absolute Neuts (auto) (2.0-8.3) x10*3/uL Absolute Nucleated RBC (0.0-0.012) X10*3/uL Nucleated RBC % (auto) (0.0-0.2) /100WBC Smear Tech's Comments Sodium (135-145) mmol/L Potassium (3.3-5.1) mmol/L Chloride (96-108) mmol/L Carbon Dioxide (22-29) mmol/L Anion Gap (12-20) BUN (9-16) mg/dL Creatinine (0.5-1.4) mg/dL Estim Creat Clear Calc Estimated GFR Random Glucose (60-115) mg/dL Calcium (8.4-10.2) mg/dL Total Bilirubin (0.0-1.0) mg/dL AST (5-31) U/L ALT (0-31) U/L Alkaline Phosphatase (39-117) U/L Total Protein (6.5-8.0) g/dL Albumin (3.5-5.0) g/dL COVID-19 (HERON) Negative (Negative) COVID-19 Clin Com See Note Influenza Type A (TERESSA) (Negative) Influenza Type B (TERESSA) (Negative) Influenza A & B Note Independent Interpretation I performed an independent interpretation of an: Plain X-Ray Interpretation: My interpretation is in agreement with the radiologist's impression of this imaging study. EXAMINATION: XR CHEST CLINICAL INFORMATION: Shortness of breath COMPARISON: 02/28/2023 TECHNIQUE: Frontal view of the chest was obtained. FINDINGS: No significant abnormality is noted involving the heart, lungs, mediastinum, bony thorax or soft tissues. XR/XR chest 1V IMPRESSION: Unremarkable examination. Dictated By: Javier Bolaños MD Signed By: Electronically signed by Javier Bolaños MD 03/01/23 7490 Radiology Impression Discussion of test interpretation with radiology: I have reviewed the radiologist's reading. Independent Historian Clinical information obtained from an independent historian. History obtained from or confirmed by: EMS (EMS provided additional history and confirmed the history provided by the patient. ) External Record Review External record reviewed: Other (reviewed patient's ED visit from 02/28/2023) Prescription Management I considered prescription management with: Other (patient prescribed inhaler and liquid for nebulizer.) Chronic Conditions Patient?s care impacted by: Other (asthma) Critical Care Time Critical Care Time Critical Care Time: Yes Total Critical Care Time: 30 Attestation: I spent 30 minutes of Critical Care Time with this patient. This does not include time spent on separately reported billable procedures. Discharge Plan Discharge Clinical Impression: Asthma with acute exacerbation Instructions: Asthma (DC) Additional Instructions: Continue taking your prednisone as previously prescribed. Follow up with your primary care provider. Return to the emergency department immediately if your symptoms worsen or if you develop any dizziness, shortness of breath, difficulty breathing, chest pain, blurry vision, loss of vision, nausea, vomiting, abdominal pain, fever, chills, back pain, or any other complaints. Prescriptions: New albuterol sulfate 90 mcg/actuation HFA aerosol inhaler 1 inh inhalation QID PRN (Reason: shortness of breath or wheezing) Qty: 8.5 0RF albuterol sulfate 1.25 mg/3 mL solution for nebulization 1.25 mg inhalation QID PRN (Reason: shortness of breath or wheezing) Qty: 90 0RF No Action fluticasone propionate [Flonase Allergy Relief] 50 mcg/actuation spray, suspension 2 spray intranasal DAILY Qty: 9.9 0RF Rx Instructions: administer into each nostril benzonatate [Tessalon Perles] 100 mg capsule 100 mg PO TID PRN (Reason: cough) Qty: 10 0RF albuterol sulfate 90 mcg/actuation HFA aerosol inhaler 1 inh inhalation QID PRN (Reason: shortness of breath or wheezing) Qty: 8.5 0RF montelukast [Singulair] 10 mg tablet 10 mg PO BEDTIME Qty: 20 0RF prednisone 50 mg tablet 50 mg PO DAILY 4 Days Qty: 4 0RF Referrals: Karolyn Kramer DO [Primary Care Provider] - Stand Alone Forms: Work/School Release Print Language: Cypriot
[2023-03-01 13:09] VITALS: PULSE 109; RESP 15; O2SAT 96
[2023-03-01] MEDS: Albuterol Sulfate 7.5 MG, Albuterol/Iprat 2.5/0.5MG 3 ML 3 ML INHALE ×2 (13:09→16:12)
[2023-03-01] MEDS: Magnesium Sulfate/H2O 2 GM/50 ML PIGGYBACK IV (14:02)
[2023-03-01] MEDS: methylPREDNISolone Sod Succ 125 MG/2 ML VIAL 60 MG IM (14:02)
[2023-03-01 14:03] VITALS: BP 120/82; PULSE 108; RESP 29; O2SAT 96
[2023-03-01 14:47] LABS: Basophils Percent Auto 0.1 % (0-2); Hematocrit 38.8 % (37.0-47.0); Imm Gran Abs Auto 0.04 X10*3/uL (0.00-0.03); Imm Gran Pct Auto 0.3 % (0.0-0.4); Lymphocytes Absolute Auto 0.5 X10*3/uL (1.2-4.9); MANUAL DIFF FLAG SCAN; Mean Corpuscular HGB Conc 33.5 g/dl (31.0-35.0); Mean Corpuscular Hemoglobin 28.6 pg (27.0-33.0); Mean Corpuscular Volume 85.3 fL (80.0-98.0); Mean Platelet Volume 9.4 fL (9.4-12.3); Monocytes Absolute Auto 0.3 X10*3/uL (0.1-1.2); Monocytes Percent Auto 2.1 % (2-11); Neutrophils Absolute Auto 12.3 x10*3/uL (2.0-8.3); Neutrophils Percent Auto 93.5 % (45-73); Platelet Count 272 X10*3/uL (160-400); Red Blood Count 4.55 X10*6/uL (4.20-5.50); Red Cell Distribution Width 13.9 % (11.0-16.0); SCAN SMEAR FLAG 1; White Blood Count 13.1 X10*3/uL (4.8-10.8)
[2023-03-01 14:58] LABS: Alanine Aminotransferase 28 U/L (0-31); Albumin Level 4.1 g/dL (3.5-5.0); Alkaline Phosphatase 58 U/L (39-117); Anion Gap 15 (12-20); Aspartate Amino Transferase 18 U/L (5-31); Bilirubin Total 0.9 mg/dL (0.0-1.0); Blood Urea Nitrogen 7 mg/dL (9-16); Calcium 9.8 mg/dL (8.4-10.2); Carbon Dioxide 18 mmol/L (22-29); Chloride 108 mmol/L (96-108); Creatinine Clr Calc Pharmacy 113.6; Estimated Glomerular Filt Rate > 60; Glucose Random 156 mg/dL (60-115); Potassium 3.3 mmol/L (3.3-5.1); Sodium 138 mmol/L (135-145)
[2023-03-01 15:04] LABS: IDNOW Serial# BCCEAD1C; Influenza A Negative (Negative); Influenza B2 Negative (Negative)
[2023-03-01 15:04] LABS: COVID-19 Test Negative (Negative); IDNOW Serial# 08D9AD1C
[2023-03-01 15:36] LABS: SLIDE REVIEW VERIFIED
[2023-03-01 16:12] VITALS: PULSE 102; RESP 17; O2SAT 95
== END 2023-03-01 17:32 | disposition home or self-care (01) ==
PROVIDERS: Physician Assistant Medical; Emergency Provider Emergency Medicine Emergency Medical Services; PCP Family Medicine
DX: J45.901 Unspecified asthma with (acute) exacerbation (principal); R06.02 Shortness of breath; R07.89 Other chest pain; F17.200 Nicotine dependence, unspecified, uncomplicated; Z71.6 Tobacco abuse counseling; Z20.822 Contact with and (suspected) exposure to COVID-19; Z20.828 Contact with and (suspected) exposure to other viral communicable diseases; Z79.899 Other long term (current) drug therapy
CPT/HCPCS: 36415; 71045; 80053; 85025; 87502; 87635; 94640; 96365; 96366; 96372; 99284; 99285; J2930; J3475

== ENCOUNTER 2023-06-27 18:35 | Outpatient (REF) | payer MEDICAID, SELFPAY ==
[2023-06-27 19:51] LABS: Influenza A PCR NEGATIVE (Negative); Influenza B PCR NEGATIVE (Negative); Resp Syncy Virus RNA Qual PCR NEGATIVE (Negative); SARS COV2 PCR INHOUSE NEGATIVE (Negative)
== END 2023-06-27 18:36 | disposition home or self-care (01) ==
LOC: HO.HHCLNP 18:35
PROVIDERS: Visit Provider Emergency Medicine
DX: Z11.52 Encounter for screening for COVID-19 (principal); J02.0 Streptococcal pharyngitis
CPT/HCPCS: 0241U

== ENCOUNTER 2023-08-30 13:12 | Outpatient (REF) | payer MEDICAID, SELFPAY ==
[2023-08-30 16:09] LABS: MANUAL DIFF FLAG NO
[2023-08-30 16:23] LABS: Basophils Percent Auto 0.5 % (0-2); Eosinophils Absolute Auto 0.3 X10*3/uL (0.0-0.4); Eosinophils Percent Auto 3.7 % (0-4); Hematocrit 39.4 % (37.0-47.0); Hemoglobin 12.4 g/dl (12.0-16.0); Imm Gran Abs Auto 0.02 X10*3/uL (0.00-0.03); Imm Gran Pct Auto 0.2 % (0.0-0.4); Lymphocytes Absolute Auto 2.5 X10*3/uL (1.2-4.9); Mean Corpuscular HGB Conc 31.5 g/dl (31.0-35.0); Mean Corpuscular Hemoglobin 26.4 pg (27.0-33.0); Monocytes Absolute Auto 0.5 X10*3/uL (0.1-1.2); Monocytes Percent Auto 6.7 % (2-11); Neutrophils Absolute Auto 4.7 x10*3/uL (2.0-8.3); Neutrophils Percent Auto 57.9 % (45-73); Platelet Count 415 X10*3/uL (160-400); Red Blood Count 4.69 X10*6/uL (4.20-5.50); Red Cell Distribution Width 14.8 % (11.0-16.0); White Blood Count 8.1 X10*3/uL (4.8-10.8)
[2023-08-30 16:24] LABS: Estimated Average Glucose 97 mg/dL
[2023-08-30 16:48] LABS: Alanine Aminotransferase 10 U/L (0-31); Albumin Level 4.1 g/dL (3.5-5.0); Alkaline Phosphatase 56 U/L (39-117); Anion Gap 11 (12-20); Aspartate Amino Transferase 14 U/L (5-31); Bilirubin Direct 0.2 mg/dL (0.0-0.5); Bilirubin Total 0.4 mg/dL (0.0-1.0); Blood Urea Nitrogen 10 mg/dL (9-16); Carbon Dioxide 26 mmol/L (22-29); Chloride 107 mmol/L (96-108); Cholesterol 147 mg/dL (<200); Estimated Glomerular Filt Rate > 60; Glucose Random 81 mg/dL (60-115); HDL Cholesterol 47 mg/dL (>40); LDL Cholesterol Calculated 79 mg/dL (<100); Potassium 3.7 mmol/L (3.3-5.1); Sodium 140 mmol/L (135-145); Total Protein 7.4 g/dL (6.5-8.0); Triglycerides 106 mg/dL (<150)
[2023-08-30 16:52] LABS: Free T4 (Free Thyroxine) 0.82 ng/dL (0.71-1.85); Thyroid Stimulating Hormone 0.63 uIU/mL (0.32-4.0); Vitamin D 25-OH Total 9.8 ng/mL (>30)
[2023-08-31 08:10] LABS: HBS Num1 0.42 mIU/mL (0-7.99); HBsAGNum1 0.23 S/CO (0.00-0.99); HIV AB/AG Nonreactive (Nonreactive); HIV Num 1 0.05 S/CO (0.00-0.99); Hepatitis B Surface Antigen Negative (Negative); ~HepC Num1 0.21 S/CO (0.00-0.79); ~Hepatitis B Surface Antibody NONREACTIVE (Nonreactive); ~Hepatitis C Antibody Nonreactive (Nonreactive)
[2023-08-31 09:40] LABS: CT PCR NOT DETECTED (Not Detect.); NG PCR NOT DETECTED (Not Detect.)
[2023-09-01 02:43] LABS: Herpes Simplex Type 2 IgG <0.90 index
[2023-09-03 10:14] LABS: RPR Rapid Plasma Reagin NON-REACTIVE (NON-REACTIVE)
== END 2023-08-30 13:13 | disposition home or self-care (01) ==
LOC: HO.HHCL 13:12
PROVIDERS: Visit Provider Family Medicine
DX: Z00.00 Encounter for general adult medical examination without abnormal findings (principal)
CPT/HCPCS: 0353U; 80048; 80061; 80076; 82306; 83036; 84439; 84443; 85025; 86592; 86695; 86696; 86706; 86803; 87340; 87389

== ENCOUNTER 2023-11-16 16:04 | Outpatient (REF) | payer MEDICAID, SELFPAY ==
[2023-11-17 15:33] LABS: C. trachomatis RNA TMA NOT DETECTED (NOT DETECTED); N. gonorrhoeae RNA TMA NOT DETECTED (NOT DETECTED)
== END 2023-11-16 16:05 | disposition home or self-care (01) ==
LOC: HO.HHCLNP 16:04
PROVIDERS: Visit Provider Family Medicine
DX: Z11.3 Encounter for screening for infections with a predominantly sexual mode of transmission (principal); J02.9 Acute pharyngitis, unspecified
CPT/HCPCS: 36415; 87491; 87591

== ENCOUNTER 2024-02-05 11:54 | Emergency (ER) | payer MEDICAID, SELFPAY ==
--- NOTE | ~2024-02-05 | CT_ITS ---
EXAMINATION: CT ABDOMEN AND PELVIS WITHOUT CONTRAST CLINICAL INFORMATION: Right flank pain and right lower abdominal pain. COMPARISON: None available. TECHNIQUE: Multidetector volumetric imaging was performed from the superior aspect of the liver through the pubic symphysis. Sagittal and coronal reformatted images were obtained on the technologist's workstation. This CT examination was performed using dose optimization techniques as appropriate, variously including the following: *Automated exposure control *Adjustment of mA and/or kV according to patient size (this includes techniques or standardized protocols for targeted exams where dose is matched to indication/reason for exam; i.e. extremities or head) *Use of iterative reconstruction technique DLP: 707 mGy-cm FINDINGS: LUNG BASES: No pulmonary consolidation or pleural effusion. HEPATOBILIARY: The liver is grossly normal for noncontrast examination. No evidence of a suspicious liver lesion. Gallbladder has a normal appearance. No dilated bile ducts. PANCREAS: No edema, pancreatic ductal dilatation or mass. SPLEEN: Normal. ADRENAL GLANDS: Normal. KIDNEYS AND URETERS: Kidneys are normal in size. 0.2 cm calyceal stone within the lower pole of the left kidney. No evidence of a right renal stone. The right ureter is minimally dilated and there is a slight fullness of the right renal pelvis but no caliectasis or perinephric edema. Multiple phleboliths are seen within the pelvis, including a phlebolith projecting just posteroinferior to the distal right ureter near the ureterovesical junction (image 87, series 3). However, no stones are identified within the lumen of the ureter. BLADDER: Normal. BOWEL AND PERITONEUM: Stomach and small bowel are unremarkable. No dilated loops. The appendix is normal. No colonic wall thickening or mesenteric fat stranding. No free fluid or pneumoperitoneum. ABDOMINAL WALL: Unremarkable. VASCULATURE: Unremarkable. LYMPH NODES: No pathologic sized lymph nodes in the abdomen or pelvis. No inguinal lymphadenopathy. PELVIC VISCERA: No uterine or adnexal mass. No pelvic fluid collection. MUSCULOSKELETAL: Unremarkable. CT/CT abdomen pelvis wo IV con IMPRESSION: * A small 0.2 cm stone is seen within the lower pole of the left kidney. * No right renal stones. The right ureter is slightly dilated but there is no visible ureteral stones. The cause of the minimal ureteral dilatation is uncertain. No stones are seen within the bladder. There is no periureteral or perinephric edema. If the patient has transient right-sided pain, then it might be possible that a very small stone was recently passed. * The urinary bladder wall has normal thickness and there is no perivesical edema. There are no imaging findings to suggest cystitis.
[2024-02-05 12:22] VITALS: BP 131/74; PULSE 103; RESP 20; TEMP 37.5; O2SAT 100; BMI 34.4
--- NOTE | 2024-02-05 12:26 | ED_ITS ---
HPI - General Adult General Chief complaint: Abdominal Pain Stated complaint: Back & abd pain Time Seen by Provider: 02/05/24 15:51 Source: patient Mode of arrival: ambulatory Limitations: no limitations History of Present Illness ED Provider: Magui Siegel HPI narrative: 33-year-old female presents to the ER for evaluation of right sided middle and lower back pain and right flank pain that started 2 weeks ago and has been getting worse. She states she initially thought it was from her mattress, so she change her mattress but has had ongoing pain. It is worse with movement. It is located in her middle and lower back on the right side and radiates to the flank and right groin area. No nausea, vomiting, diarrhea. No urinary symptoms. No fever or chills. No vaginal discharge. MD complaint: Right sided back pain Onset (ago): week(s) (2) Location: back Radiation: abdomen Severity: severe Quality: stabbing Pain Consistency: constant Relieving factors: rest Exacerbating factors: movement Treatments prior to arrival: none Related Data Previous Rx's ?Medication ?Instructions ?Recorded benzonatate 100 mg capsule 100 mg PO TID PRN cough #10 caps 08/26/20 (Veronica Marroquin) fluticasone propionate 50 2 spray intranasal DAILY #9.9 mL 08/26/20 mcg/actuation nasal spray,suspension (Flonase Allergy Relief) albuterol sulfate 90 mcg/actuation 1 inh inhalation QID PRN shortness 05/30/21 aerosol inhaler of breath or wheezing #8.5 grams montelukast 10 mg tablet 10 mg PO BEDTIME #20 tabs 05/30/21 (Singulair) prednisone 50 mg tablet 50 mg PO DAILY 4 days #4 tabs 02/28/23 albuterol sulfate 1.25 mg/3 mL 1.25 mg (3 mL) inhalation QID PRN 03/01/23 solution for nebulization shortness of breath or wheezing #90 mL albuterol sulfate 90 mcg/actuation 1 inh inhalation QID PRN shortness 03/01/23 aerosol inhaler of breath or wheezing #8.5 grams cefuroxime axetil 250 mg tablet 250 mg PO BID 7 days #14 tabs 02/05/24 cyclobenzaprine 10 mg tablet 10 mg PO TID PRN muscle spasm #10 02/05/24 tabs ibuprofen 600 mg tablet 600 mg PO Q8H PRN fever or pain 02/05/24 #14 tabs lidocaine 5 % topical patch 1 patch topical DAILY #15 ea 02/05/24 Allergies Allergy/AdvReac Type Severity Reaction Status Date / Time SEAFOOD Allergy Severe ANAPHYLAXIS Uncoded 02/05/24 12:25 sea food Allergy Unknown anaphylaxis Uncoded 02/05/24 12:25 Review of Systems 2 Review of Systems: Yes all other systems are reviewed and are negative [facility] Past Medical History Medical History Asthma Social History Social History Alcohol intake: never Patient Tobacco Use Status: Current everyday Tobacco user Advance Directives: No Advance Directives Information Provided: No Physical Exam ED Vital Signs: Vital Signs - 24 hr 02/05/24 12:22 02/05/24 15:51 02/05/24 16:21 Temperature 99.5 F 101 F H 100.8 F H Pulse Rate 103 H 87 Respiratory Rate 20 18 Blood Pressure 131/74 127/62 Pulse Oximetry 100 98 Oxygen Delivery Method Room Air Room Air 02/05/24 17:25 02/05/24 17:31 Temperature 99.2 F 99.2 F Pulse Rate 87 Respiratory Rate 18 Blood Pressure 127/62 Pulse Oximetry 98 Oxygen Delivery Method Room Air BMI result Body Mass Index 34.4 Appearance: Alert. Oriented X3. No acute distress. Head: normocephalic, atraumatic. Eyes: Pupils equal, round and reactive to light. ENT: Pharynx normal. No tonsillar swelling or exudate. Neck: Normal inspection. Neck supple. CVS: Normal heart rate and rhythm. Pulses normal. Respiratory: No respiratory distress. Breath sounds normal. Abdomen: Soft and nontender. +BS x4 Back: normal inspection. Soft tissue tenderness of the right lower thoracic area and right upper lumbar area. Positive CVA tenderness on the right side. Pain with flexion and lateral rotation. No midline tenderness. Skin: Skin warm and dry. Normal skin color. Normal skin turgor. No rashes. Extremities: No lower extremity edema. No joint swelling. Neuro/psych: Oriented X 3. No motor deficit. No sensory deficit. CN II-XII intact. Normal speech and cognition. Course Course Course Narrative: RME: done by DOROTHY Hopson. Patient presents to ED for right flank pain radiating to right lower abdomen for the past 2 weeks. Patient denies any trauma dysuria or hematuria. Patient states also right lower quadrant abdominal pain. Patient states no fever or chills. Positive for right CVA flank and right lower quadrant tenderness on palpation. UA labs ordered Reevaluation(s) Reevaluation #1: I received patient in sign-out from Yun GUARDADO pending urinalysis. I personally evaluated patient. Exam is positive for minimal right. Abdomen nontender to palpation. CBC without leukocytosis or left shift. Microcytic anemia with H&H 10.7/33.8. Chemistry without acute electrolyte abnormality requiring intervention. Normal renal and liver function. Beta hCG undetectable. No . CT abdomen/pelvis showing small 0.2 cm stone in the lower pole of the left kidney. The right ureter is slightly dilated however no visible your ureteral stone to indicate obstruction. Patient may have passed stone. Urine positive for infection. Discussed results with patient. Ceftin sent to pharmacy for treatment. She is now afebrile. Advised to alternate tylenol/ motrin at home. Patient has remained stable throughout ED visit today. Discussed worrisome signs and symptoms and when to return to the ED. All questions answered at this time. Patient is agreeable with disposition and stable for discharge. - Nel Godoy PA-C Time: 17:29 Medications Administered Discontinued Medications Generic Name Dose Route Start Last Admin Trade Name Freq PRN Reason Stop Dose Admin Ketorolac Tromethamine 30 mg 02/05/24 16:05 02/05/24 16:17 Ketorolac Tromethamine 30 Mg/Ml Vial IM 02/05/24 16:06 30 mg ONCE ONE Administration Medical Decision Making Medical Decision Making [facility] Narrative: 33-year-old female presents to the ER for evaluation of 2 weeks of right-sided back pain that radiates to her abdomen. No urinary symptoms except some bladder fullness that is intermittent, but new the last few days. On arrival to the ER patient was slightly tachycardic. She developed a fever of 101. Lab work showed some mild microcytic anemia but no leukocytosis. Differential Diagnosis Differential Diagnoses: The differential diagnosis associated with the presentation includes Pyelonephritis, kidney stone, UTI, musculoskeletal pain, pancreatitis, cholecystitis Lab Data [facility] Lab Attestation statement: I reviewed the patient's lab results. 02/05/24 12:32 02/05/24 12:32 Labs: Lab Results 02/05/24 02/05/24 Range/Units 12:32 16:08 WBC 9.5 (4.8-10.8) X10*3/uL RBC 4.30 (4.20-5.50) X10*6/uL Hgb 10.7 L (12.0-16.0) g/dl Hct 33.8 L (37.0-47.0) % MCV 78.6 L (80.0-98.0) fL MCH 24.9 L (27.0-33.0) pg MCHC 31.7 (31.0-35.0) g/dl RDW 17.3 H (11.0-16.0) % Plt Count 296 D (160-400) X10*3/uL MPV 9.2 L (9.4-12.3) fL Immature Gran % (Auto) 0.3 (0.0-0.4) % Neut % (Auto) 72.2 (45-73) % Lymph % (Auto) 15.2 L (20-40) % [place] % (Auto) 11.2 H (2-11) % Eos % (Auto) 0.9 (0-4) % Baso % (Auto) 0.2 (0-2) % Lymph # (Auto) 1.5 (1.2-4.9) X10*3/uL [place] # (Auto) 1.1 (0.1-1.2) X10*3/uL Eos # (Auto) 0.1 (0.0-0.4) X10*3/uL Baso # (Auto) 0.0 (0.0-0.2) X10*3/uL Abs Immat Gran (auto) 0.03 (0.00-0.03) X10*3/uL Absolute Neuts (auto) 6.9 (2.0-8.3) x10*3/uL Absolute Nucleated RBC 0.000 (0.0-0.012) X10*3/uL Nucleated RBC % (auto) 0.0 (0.0-0.2) /100WBC PT 12.2 (11.1-13.3) SEC INR 1.0 (0.9-1.1) APTT 30.1 (26.0-36.8) SEC Sodium 141 (135-145) mmol/L Potassium 3.4 (3.3-5.1) mmol/L Chloride 108 (96-108) mmol/L Carbon Dioxide 27 (22-29) mmol/L Anion Gap 9 L (12-20) BUN 4 L (9-16) mg/dL Creatinine 0.88 (0.5-1.4) mg/dL Estim Creat Clear Calc 101.9 Estimated GFR > 60 Random Glucose 93 (60-115) mg/dL Calcium 9.2 (8.4-10.2) mg/dL Total Bilirubin 0.5 (0.0-1.0) mg/dL AST 14 (5-31) U/L ALT 11 (0-31) U/L Alkaline Phosphatase 55 (39-117) U/L Total Protein 6.8 (6.5-8.0) g/dL Albumin 3.7 (3.5-5.0) g/dL Beta HCG, Quant < 2 mIU/mL Urine Color Yellow Urine Appearance Hazy Urine pH 6.0 (5.0-9.0) Ur Specific [place] 1.010 (1.005-1.025) Urine Protein Trace (Neg-Trace) mg/dL Urine Glucose (UA) Negative (Negative) mg/dL Urine Ketones Negative (Negative) mg/dL Urine Blood Moderate (2+) H (Negative) Urine Nitrite Negative (Negative) Ur Leukocyte Esterase Moderate (2+) H (Negative) Urine RBC 0-2 (0-2) /HPF Urine WBC 11-20 (0-5) /HPF Ur Squamous Epith Cells 3-5 (0-2) /HPF Urine Bacteria 4+ (None Seen) Hyaline Casts 0-2 (0-2) /LPF Independent Interpretation I performed an independent interpretation of an: CT Scan Interpretation: No visible ureteral stone, no hydronephrosis, agree with radiology read Radiology Impression Discussion of test interpretation with radiology: I have reviewed the radiologist's reading. Radiologist Impression: CT/CT abdomen pelvis wo IV con IMPRESSION: * A small 0.2 cm stone is seen within the lower pole of the left kidney. * No right renal stones. The right ureter is slightly dilated but there is no visible ureteral stones. The cause of the minimal ureteral dilatation is uncertain. No stones are seen within the bladder. There is no periureteral or perinephric edema. If the patient has transient right-sided pain, then it might be possible that a very small stone was recently passed. * The urinary bladder wall has normal thickness and there is no perivesical edema. There are no imaging findings to suggest cystitis. External Record Review External record reviewed: Outpatient record, Prior outpatient labs and Prior outpatient radiology Prescription Management I considered prescription management with: Pain Medication and Antibiotic Critical Care Time Critical Care Time Critical Care Time: No Discharge Plan Discharge Clinical Impression: Urinary tract infection Back pain Qualifiers: Back pain location: low back pain Chronicity: acute Back pain laterality: right Sciatica presence: without sciatica Qualified Code(s): M54.50 - Low back pain, unspecified Patient Disposition: Home, Self-Care Instructions: Urinary Tract Infection in Women (DC), Acute Low Back Pain (ED) Additional Instructions: Your blood work today is reassuring. Your urine today was positive for infection. Ceftin is an antibiotic that has been sent to your pharmacy. Take this as prescribed and do not miss any doses. You must complete the entire course of antibiotics. If you do not, there is a risk of the infection coming back or worsening. Follow up with your primary care provider as needed. If you develop a fever or new/ worsening symptoms call 911 or come back to the ER for further evaluation. In addition, Flexeril as a muscle relaxer that has been sent to your pharmacy for you to take as needed for muscle spasm. You may also use lidocaine patches. You may apply these to painful areas. Take Motrin and Tylenol as needed for fever or pain. Prescriptions: New cyclobenzaprine 10 mg tablet 10 mg PO TID PRN (Reason: muscle spasm) Qty: 10 0RF ibuprofen 600 mg tablet 600 mg PO Q8H PRN (Reason: fever or pain) Qty: 14 0RF lidocaine 5 % adhesive patch,medicated 1 patch topical DAILY Qty: 15 0RF Rx Instructions: leave on most painful area for up to 12 hrs cefuroxime axetil 250 mg tablet 250 mg PO BID 7 Days Qty: 14 0RF No Action fluticasone propionate [Flonase Allergy Relief] 50 mcg/actuation spray,suspension 2 spray intranasal DAILY Qty: 9.9 0RF Rx Instructions: administer into each nostril benzonatate [Tessalon Perles] 100 mg capsule 100 mg PO TID PRN (Reason: cough) Qty: 10 0RF albuterol sulfate 90 mcg/actuation HFA aerosol inhaler 1 inh inhalation QID PRN (Reason: shortness of breath or wheezing) Qty: 8.5 0RF montelukast [Singulair] 10 mg tablet 10 mg PO BEDTIME Qty: 20 0RF prednisone 50 mg tablet 50 mg PO DAILY 4 Days Qty: 4 0RF albuterol sulfate 90 mcg/actuation HFA aerosol inhaler 1 inh inhalation QID PRN (Reason: shortness of breath or wheezing) Qty: 8.5 0RF albuterol sulfate 1.25 mg/3 mL solution for nebulization 1.25 mg inhalation QID PRN (Reason: shortness of breath or wheezing) Qty: 90 0RF Stand Alone Forms: Work/School Release Interventions: ED Discharge Assessment Last Done: 02/05/24 17:31 Discharge Date/Time: 02/05/24 17:37 Print Language: Cook Islander
[2024-02-05 12:36] LABS: MANUAL DIFF FLAG NO
[2024-02-05 12:38] LABS: Basophils Percent Auto 0.2 % (0-2); Eosinophils Absolute Auto 0.1 X10*3/uL (0.0-0.4); Eosinophils Percent Auto 0.9 % (0-4); Hematocrit 33.8 % (37.0-47.0); Hemoglobin 10.7 g/dl (12.0-16.0); Imm Gran Abs Auto 0.03 X10*3/uL (0.00-0.03); Imm Gran Pct Auto 0.3 % (0.0-0.4); Lymphocytes Absolute Auto 1.5 X10*3/uL (1.2-4.9); Lymphocytes Percent Auto 15.2 % (20-40); Mean Corpuscular HGB Conc 31.7 g/dl (31.0-35.0); Mean Corpuscular Hemoglobin 24.9 pg (27.0-33.0); Mean Corpuscular Volume 78.6 fL (80.0-98.0); Mean Platelet Volume 9.2 fL (9.4-12.3); Monocytes Absolute Auto 1.1 X10*3/uL (0.1-1.2); Monocytes Percent Auto 11.2 % (2-11); Neutrophils Absolute Auto 6.9 x10*3/uL (2.0-8.3); Neutrophils Percent Auto 72.2 % (45-73); Platelet Count 296 X10*3/uL (160-400); Red Cell Distribution Width 17.3 % (11.0-16.0); White Blood Count 9.5 X10*3/uL (4.8-10.8)
[2024-02-05 12:44] LABS: Prothrombin Time 12.2 SEC (11.1-13.3)
[2024-02-05 12:46] LABS: Partial Thromboplastin Time 30.1 SEC (26.0-36.8)
[2024-02-05 13:24] LABS: Alanine Aminotransferase 11 U/L (0-31); Albumin Level 3.7 g/dL (3.5-5.0); Alkaline Phosphatase 55 U/L (39-117); Anion Gap 9 (12-20); Aspartate Amino Transferase 14 U/L (5-31); Bilirubin Total 0.5 mg/dL (0.0-1.0); Blood Urea Nitrogen 4 mg/dL (9-16); Calcium 9.2 mg/dL (8.4-10.2); Carbon Dioxide 27 mmol/L (22-29); Chloride 108 mmol/L (96-108); Creatinine Clr Calc Pharmacy 101.9; Estimated Glomerular Filt Rate > 60; Glucose Random 93 mg/dL (60-115); HCG Quantitative < 2 mIU/mL; Potassium 3.4 mmol/L (3.3-5.1); Sodium 141 mmol/L (135-145); Total Protein 6.8 g/dL (6.5-8.0)
[2024-02-05 15:51] VITALS: BP 127/62; PULSE 87; RESP 18; TEMP 38.3; O2SAT 98
[2024-02-05] MEDS: Ketorolac Tromethamine 30 MG/ML VIAL IM (16:17)
[2024-02-05 16:21] VITALS: TEMP 38.2
[2024-02-05 16:48] LABS: Color Urine Yellow; Glucose Urine UA Negative (Negative); Leukocyte Esterase Urine Moderate (2+) (Negative); Nitrite Urine Negative (Negative); UMIC TRIGGER UACC YES; Urine Blood Moderate (2+) (Negative); Urine Ketones Negative (Negative); Urine Protein Trace mg/dL (Neg-Trace)
[2024-02-05 17:05] LABS: Appearance Urine Hazy
[2024-02-05 17:07] LABS: Bacteria Urine 4+ (None Seen); Hyaline Casts Urine 0-2 /LPF (0-2); RBC Urine 0-2 /HPF (0-2); UACC Culture Trigger YES
[2024-02-05 17:25] VITALS: TEMP 37.3
[2024-02-05 17:31] VITALS: BP 127/62; PULSE 87; RESP 18; TEMP 37.3; O2SAT 98
== END 2024-02-05 17:37 | disposition home or self-care (01) ==
PROVIDERS: Physician Assistant; Emergency Provider Emergency Medicine; PCP Family Medicine
DX: N39.0 Urinary tract infection, site not specified (principal); B96.20 Unspecified Escherichia coli [E. coli] as the cause of diseases classified elsewhere; N20.0 Calculus of kidney; M54.50 Low back pain, unspecified; R10.9 Unspecified abdominal pain; J45.909 Unspecified asthma, uncomplicated
CPT/HCPCS: 36415; 74176; 80053; 81001; 81003; 84702; 85025; 85610; 85730; 87086; 87088; 87186; 96372; 99284; J1885

== ENCOUNTER 2024-06-29 15:02 | Emergency (ER) | payer MEDICAID, SELFPAY ==
[2024-06-29] VITALS (8 sets, daily range): BP systolic 0–140; BP diastolic 0–84; PULSE 94–110; RESP 18–20; TEMP -17.7–38; O2SAT 93–98; BMI 34.9
--- NOTE | ~2024-06-29 | XR_ITS ---
EXAMINATION: XR CHEST CLINICAL INFORMATION: Shortness of breath COMPARISON: 03/01/2023 TECHNIQUE: 2 views of the chest were obtained. FINDINGS: Heart, mediastinum, pulmonary vessels within normal limits. Vague opacity is identified in the right apex no air bronchograms, vascular congestion, pleural effusions or pneumothoraces. Bony structures are intact. XR/XR chest 2V IMPRESSION: Vague right apical opacity. Consider short-term radiographic follow-up. Electronically signed by: Corinne Banuelos MD 06/29/2024 03:48 PM ARPITA VALDEZ
--- NOTE | 2024-06-29 15:12 | ECG_ITS ---
Test Reason : SOB Blood Pressure : / mmHG Vent. Rate : 100 BPM Atrial Rate : 100 BPM P-R Int : 144 ms QRS Dur : 076 ms QT Int : 328 ms P-R-T Axes : 029 046 002 degrees QTc Int : 423 ms Normal sinus rhythm Minimal voltage criteria for LVH, may be normal variant ( Sokolow-Parker ) Nonspecific ST and T wave abnormality Abnormal ECG When compared with ECG of 28-FEB-2023 20:19, No significant change was found Referred By: Fátima Alicea Electronically Signed By:Jesús Craig
--- NOTE | 2024-06-29 16:20 | ED_ITS ---
HPI - SOB/Dyspnea General Chief Complaint: Dyspnea Stated Complaint: SOB Time Seen by Provider: 06/29/24 16:01 Source: patient and EMS Mode of arrival: EMS Limitations: no limitations History of Present Illness ED Provider: Dr. Irma Sheth HPI Narrative: Patient comes to the emergency room complaining of asthma exacerbations for several days. Patient states that her albuterol inhaler is not working as it usually does, using her inhaler every couple of hours. Today patient called EMS, they gave her a DuoNeb. Patient denies fever chills denies chest pain. Related Data Previous Rx's ?Medication ?Instructions ?Recorded benzonatate 100 mg capsule 100 mg PO TID PRN cough #10 caps 08/26/20 (Tessalon Perles) fluticasone propionate 50 2 spray intranasal DAILY #9.9 mL 08/26/20 mcg/actuation nasal spray,suspension (Flonase Allergy Relief) albuterol sulfate 90 mcg/actuation 1 inh inhalation QID PRN shortness 05/30/21 aerosol inhaler of breath or wheezing #8.5 grams montelukast 10 mg tablet 10 mg PO BEDTIME #20 tabs 05/30/21 (Singulair) prednisone 50 mg tablet 50 mg PO DAILY 4 days #4 tabs 02/28/23 albuterol sulfate 1.25 mg/3 mL 1.25 mg (3 mL) inhalation QID PRN 03/01/23 solution for nebulization shortness of breath or wheezing #90 mL albuterol sulfate 90 mcg/actuation 1 inh inhalation QID PRN shortness 03/01/23 aerosol inhaler of breath or wheezing #8.5 grams cefuroxime axetil 250 mg tablet 250 mg PO BID 7 days #14 tabs 02/05/24 cyclobenzaprine 10 mg tablet 10 mg PO TID PRN muscle spasm #10 02/05/24 tabs ibuprofen 600 mg tablet 600 mg PO Q8H PRN fever or pain 02/05/24 #14 tabs lidocaine 5 % topical patch 1 patch topical DAILY #15 ea 02/05/24 albuterol sulfate 90 mcg/actuation 2 puff inhalation Q4-6H PRN 06/29/24 aerosol inhaler shortness of breath or wheezing #8.5 grams prednisone 50 mg tablet 50 mg PO DAILY #4 tabs 06/29/24 Allergies Allergy/AdvReac Type Severity Reaction Status Date / Time SEAFOOD Allergy Severe ANAPHYLAXIS Uncoded 06/29/24 15:48 sea food Allergy Unknown anaphylaxis Uncoded 06/29/24 15:48 Review of Systems 2 Review of Systems: Constitutional : No Weight loss, No Fever, No Chills, No Night Sweats, No Fatigue, No Malaise ENT/Mouth : No Hearing loss, No Ear Pain, No Nasal Congestion, No Sinus Pain, No Hoarseness, No sore throat, No Rhinorrhea, No Swallowing Difficulty Eyes: No Eye Pain, No Swelling, No Redness, No Foreign Body, No Discharge, No Vision Changes Cardiovascular : No Chest Pain, No SOB, No Dyspnea on Exertion, No Orthopnea, No Edema, No Palpitations Respiratory : Complaining of dry cough, wheezing, dyspnea Gastrointestinal : No Nausea, No Vomiting, No Diarrhea, No Constipation, No abdominal Pain, No Hematochezia, No Melena Genitourinary : no irregular bleeding, No Dysuria, No Urinary Frequency, No Hematuria, No Urinary Incontinence, No Urgency, No Flank Pain, No Urinary Flow Changes, No Hesitancy Musculoskeletal : No joint pain, No Myalgias, No Joint Swelling Skin : No Skin Lesions, No rash Neuro : No Weakness, No Numbness, No Paresthesias, No Loss of Consciousness, No Dizziness, No Headache Psych : No Anxiety/Panic, No Depression, No SI/HI/AH/VH, No Social Issues, Heme/Lymph: No Bruising, No Bleeding,No Lymphadenopathy Endocrine : No Polyuria, No Polydipsia, No Temperature Intolerance PMFSH Past Medical History Medical History Asthma Social History Social History Alcohol intake: never Patient Tobacco Use Status: Current everyday Tobacco user Advance Directives: No Advance Directives Information Provided: No Do you have a plan to hurt others: No Plan Physical Exam 2 Vital Signs: Vital Signs: Last Vital Signs Temp 98.2 F 06/29/24 18:00 Pulse 101 H 06/29/24 18:00 Resp 18 06/29/24 18:00 BP 140/79 H 06/29/24 18:00 Pulse Ox 95 06/29/24 18:03 O2 Del Method Room Air 06/29/24 18:00 BMI result Body Mass Index 34.9 Const: Other: Appearance: Alert. Oriented X3. No acute distress. Eyes: Pupils equal, round and reactive to light. ENT: Pharynx normal. Neck: Normal inspection. Neck supple. No lymph nodes noted. No crepitus CVS: Normal heart rate and rhythm. Pulses normal. Normal S1 and S2 Respiratory: No respiratory distress. Speaking in full sentence, very occasional wheezing, friction rubs bilaterally Abdomen: Soft and nontender. No rigidity. No distention. Skin: Skin warm and dry. Normal skin color. Normal skin turgor. Extremities: No lower extremity edema. No Lacerations. No Rash Neuro: Oriented X 3. No motor deficit. No sensory deficit. Moving all extremities. No slurred speech. CN 2 through 12 grossly intact Psych: calm, cooperative, normal affect Course Course Course Narrative: Patient is minimally wheezing. Patient states that she believes that a nebulization treatment would help the. Patient also given IV Solu-Medrol. Medications Administered Discontinued Medications Generic Name Dose Route Start Last Admin Trade Name Freq PRN Reason Stop Dose Admin Albuterol/Ipratropium 3 ml 06/29/24 16:32 06/29/24 16:35 Albuterol/Iprat 2.5/0.5mg 3 Ml Ampul.Neb INHALE 06/29/24 16:33 3 ml ONCE ONE Administration Methylprednisolone Sodium Succinate 125 mg 06/29/24 16:18 06/29/24 17:15 Methylprednisolone Sod Succ 125 Mg/2 Ml Vial IVPUSH 06/29/24 16:19 125 mg ONCE ONE Administration Medical Decision Making Medical Decision Making [facility] Narrative: My interpretation of labs: Patient's hematology at baseline, chemistry within normal limits, troponin negative. Influenza a and B negative, RSV negative, COVID negative My interpretation of chest x-ray: No obvious abnormality, no infiltrates. Radiology report shows a vague right apical opacity -patient has not had any fever any chills, normal white blood cell count. -patient was ambulated in the emergency room, oxygen saturation stayed at 95 and 96% on room air walking. Patient states that she feels much better breathing. Differential Diagnosis Differential Diagnoses: The differential diagnosis associated with the presentation includes (Asthma exacerbation, pneumonia, viral URI) Lab Data [facility] Lab Attestation statement: I reviewed the patient's lab results. 06/29/24 16:47 06/29/24 16:47 Labs: Lab Results 06/29/24 Range/Units 16:47 WBC 9.6 (4.8-10.8) X10*3/uL RBC 4.38 (4.20-5.50) X10*6/uL Hgb 10.1 L (12.0-16.0) g/dl Hct 32.5 L (37.0-47.0) % MCV 74.2 L (80.0-98.0) fL MCH 23.1 L (27.0-33.0) pg MCHC 31.1 (31.0-35.0) g/dl RDW 17.9 H (11.0-16.0) % Plt Count 361 (160-400) X10*3/uL MPV 8.9 L (9.4-12.3) fL Immature Gran % (Auto) 0.4 (0.0-0.4) % Neut % (Auto) 73.4 H (45-73) % Lymph % (Auto) 11.9 L (20-40) % [place] % (Auto) 9.3 (2-11) % Eos % (Auto) 4.6 H (0-4) % Baso % (Auto) 0.4 (0-2) % Lymph # (Auto) 1.1 L (1.2-4.9) X10*3/uL [place] # (Auto) 0.9 (0.1-1.2) X10*3/uL Eos # (Auto) 0.4 (0.0-0.4) X10*3/uL Baso # (Auto) 0.0 (0.0-0.2) X10*3/uL Abs Immat Gran (auto) 0.04 H (0.00-0.03) X10*3/uL Absolute Neuts (auto) 7.1 (2.0-8.3) x10*3/uL Absolute Nucleated RBC 0.000 (0.0-0.012) X10*3/uL Nucleated RBC % (auto) 0.0 (0.0-0.2) /100WBC Sodium 141 (135-145) mmol/L Potassium 3.3 (3.3-5.1) mmol/L Chloride 106 (96-108) mmol/L Carbon Dioxide 25 (22-29) mmol/L Anion Gap 13 (12-20) BUN 7 L (9-16) mg/dL Creatinine 0.83 (0.5-1.4) mg/dL Estim Creat Clear Calc 108.0 Estimated GFR > 60 Random Glucose 104 (60-115) mg/dL Calcium 8.8 (8.4-10.2) mg/dL Magnesium 1.8 (1.6-2.6) mg/dL Total Bilirubin 0.4 (0.0-1.0) mg/dL AST 19 (5-31) U/L ALT 10 (0-31) U/L Alkaline Phosphatase 56 (39-117) U/L Troponin I High Sens < 2.7 (<3.5-17.0) ng/L Total Protein 6.9 (6.5-8.0) g/dL Albumin 3.9 (3.5-5.0) g/dL Influenza Type A (PCR) NEGATIVE (Negative) Influenza Type B (PCR) NEGATIVE (Negative) RSV RNA Qual (PCR) NEGATIVE (Negative) SARS-CoV-2 RNA (RT-PCR) NEGATIVE (Negative) Independent Interpretation I performed an independent interpretation of an: Plain X-Ray Radiology Impression Discussion of test interpretation with radiology: I have reviewed the radiologist's reading. Radiologist Impression: Heart, mediastinum, pulmonary vessels within normal limits. Vague opacity is identified in the right apex no air bronchograms, vascular congestion, pleural effusions or pneumothoraces. Bony structures are intact. Critical Care Time Critical Care Time Critical Care Time: Yes Total Critical Care Time: 30 Attestation: I have personally provided critical care time. Time includes review of lab data, radiology results, discussion with consultants, and monitoring for potential decompensation. Intervention performed as documented. Discharge Plan Discharge Clinical Impression: Asthma with exacerbation Patient Disposition: Home, Self-Care Instructions: Asthma (ED) Additional Instructions: Please follow-up with your primary care physician tomorrow. If you have any worsening or new symptoms, please return to the emergency room or call 911 Prescriptions: New albuterol sulfate 90 mcg/actuation HFA aerosol inhaler 2 puff inhalation Q4-6H PRN (Reason: shortness of breath or wheezing) Qty: 8.5 0RF prednisone 50 mg tablet 50 mg PO DAILY Qty: 4 0RF No Action fluticasone propionate [Flonase Allergy Relief] 50 mcg/actuation spray,suspension 2 spray intranasal DAILY Qty: 9.9 0RF Rx Instructions: administer into each nostril benzonatate [Tessalon Perles] 100 mg capsule 100 mg PO TID PRN (Reason: cough) Qty: 10 0RF albuterol sulfate 90 mcg/actuation HFA aerosol inhaler 1 inh inhalation QID PRN (Reason: shortness of breath or wheezing) Qty: 8.5 0RF montelukast [Singulair] 10 mg tablet 10 mg PO BEDTIME Qty: 20 0RF prednisone 50 mg tablet 50 mg PO DAILY 4 Days Qty: 4 0RF albuterol sulfate 90 mcg/actuation HFA aerosol inhaler 1 inh inhalation QID PRN (Reason: shortness of breath or wheezing) Qty: 8.5 0RF albuterol sulfate 1.25 mg/3 mL solution for nebulization 1.25 mg inhalation QID PRN (Reason: shortness of breath or wheezing) Qty: 90 0RF cyclobenzaprine 10 mg tablet 10 mg PO TID PRN (Reason: muscle spasm) Qty: 10 0RF ibuprofen 600 mg tablet 600 mg PO Q8H PRN (Reason: fever or pain) Qty: 14 0RF lidocaine 5 % adhesive patch,medicated 1 patch topical DAILY Qty: 15 0RF Rx Instructions: leave on most painful area for up to 12 hrs cefuroxime axetil 250 mg tablet 250 mg PO BID 7 Days Qty: 14 0RF Print Language: Latvian
[2024-06-29] MEDS: Albuterol/Iprat 2.5/0.5MG 3 ML AMPUL.NEB INHALE (16:35)
[2024-06-29 16:54] LABS: MANUAL DIFF FLAG NO
[2024-06-29 16:58] LABS: Basophils Percent Auto 0.4 % (0-2); Eosinophils Absolute Auto 0.4 X10*3/uL (0.0-0.4); Eosinophils Percent Auto 4.6 % (0-4); Hematocrit 32.5 % (37.0-47.0); Hemoglobin 10.1 g/dl (12.0-16.0); Imm Gran Abs Auto 0.04 X10*3/uL (0.00-0.03); Imm Gran Pct Auto 0.4 % (0.0-0.4); Lymphocytes Absolute Auto 1.1 X10*3/uL (1.2-4.9); Lymphocytes Percent Auto 11.9 % (20-40); Mean Corpuscular HGB Conc 31.1 g/dl (31.0-35.0); Mean Corpuscular Hemoglobin 23.1 pg (27.0-33.0); Mean Corpuscular Volume 74.2 fL (80.0-98.0); Mean Platelet Volume 8.9 fL (9.4-12.3); Monocytes Absolute Auto 0.9 X10*3/uL (0.1-1.2); Monocytes Percent Auto 9.3 % (2-11); Neutrophils Absolute Auto 7.1 x10*3/uL (2.0-8.3); Neutrophils Percent Auto 73.4 % (45-73); Platelet Count 361 X10*3/uL (160-400); Red Blood Count 4.38 X10*6/uL (4.20-5.50); Red Cell Distribution Width 17.9 % (11.0-16.0); White Blood Count 9.6 X10*3/uL (4.8-10.8)
[2024-06-29 17:10] LABS: Alanine Aminotransferase 10 U/L (0-31); Albumin Level 3.9 g/dL (3.5-5.0); Alkaline Phosphatase 56 U/L (39-117); Anion Gap 13 (12-20); Aspartate Amino Transferase 19 U/L (5-31); Bilirubin Total 0.4 mg/dL (0.0-1.0); Blood Urea Nitrogen 7 mg/dL (9-16); Calcium 8.8 mg/dL (8.4-10.2); Carbon Dioxide 25 mmol/L (22-29); Chloride 106 mmol/L (96-108); Estimated Glomerular Filt Rate > 60; Glucose Random 104 mg/dL (60-115); Magnesium 1.8 mg/dL (1.6-2.6); Potassium 3.3 mmol/L (3.3-5.1); Sodium 141 mmol/L (135-145); Total Protein 6.9 g/dL (6.5-8.0)
[2024-06-29] MEDS: methylPREDNISolone Sod Succ 125 MG/2 ML VIAL IVPUSH (17:15)
[2024-06-29 17:19] LABS: Troponin-I High Sensitivity < 2.7 ng/L (<3.5-17.0)
[2024-06-29 17:31] LABS: Influenza A PCR NEGATIVE (Negative); Influenza B PCR NEGATIVE (Negative); Resp Syncy Virus RNA Qual PCR NEGATIVE (Negative); SARS COV2 PCR INHOUSE NEGATIVE (Negative)
[2024-06-29] MEDS: Albuterol Sulfate 2.5 MG, Albuterol Sulfate (0.083%) 2.5 MG 5 MG INHALE (18:39)
== END 2024-06-29 19:15 | disposition home or self-care (01) ==
PROVIDERS: Physician Assistant Medical; Emergency Provider Emergency Medicine; PCP Family Medicine
DX: J45.901 Unspecified asthma with (acute) exacerbation (principal); R06.00 Dyspnea, unspecified; R06.02 Shortness of breath; F17.210 Nicotine dependence, cigarettes, uncomplicated; Z03.818 Encounter for observation for suspected exposure to other biological agents ruled out; Z79.899 Other long term (current) drug therapy
CPT/HCPCS: 0241U; 71046; 80053; 83735; 84484; 85025; 93005; 94640; 96374; 99284; J2919

== ENCOUNTER → 2024-06-29 15:12 | Outpatient (BNV) | payer MEDICAID, SELFPAY | PROVIDERS: Emergency Provider Emergency Medicine; PCP Family Medicine; Visit Provider Internal Medicine Cardiovascular Disease | DX: R94.31 Abnormal electrocardiogram [ECG] [EKG] (principal) | CPT/HCPCS: 93010 ==

== ENCOUNTER 2024-07-13 11:37 | Inpatient (IN) | payer MEDICAID, SELFPAY ==
[2024-07-13] VITALS (7 sets, daily range): BP systolic 111–150; BP diastolic 60–90; PULSE 84–99; RESP 12–18; TEMP 37.1–39.4; O2SAT 97–100; BMI 33.3
--- NOTE | ~2024-07-13 | XR_ITS ---
EXAMINATION: XR CHEST CLINICAL INFORMATION: dizzy, fever, r/o pneumonia COMPARISON: None available. TECHNIQUE: 2 views of the chest were obtained. FINDINGS: No significant abnormality is noted involving the heart, lungs, mediastinum, bony thorax or soft tissues. XR/XR chest 2V IMPRESSION: No acute disease Electronically signed by: Abdiaziz Trujillo MD 07/13/2024 01:59 PM [facility]
--- NOTE | ~2024-07-13 | CT_ITS ---
EXAMINATION: CT ABDOMEN AND PELVIS WITHOUT CONTRAST CLINICAL INFORMATION: Lower abdominal and right flank pain COMPARISON: CT abdomen and pelvis February 05, 2024 TECHNIQUE: Multidetector volumetric imaging was performed from the superior aspect of the liver through the pubic symphysis. Sagittal and coronal reformatted images were obtained on the technologist's workstation. This CT examination was performed using dose optimization techniques as appropriate, variously including the following: *Automated exposure control *Adjustment of mA and/or kV according to patient size (this includes techniques or standardized protocols for targeted exams where dose is matched to indication/reason for exam; i.e. extremities or head) *Use of iterative reconstruction technique DLP: 763 mGy-cm FINDINGS: Visualized lung bases are well aerated. There is minimal right basilar atelectasis. The liver is normal in size. There is diffusely decreased attenuation the liver. The gallbladder is normal in appearance. The pancreas, spleen and adrenal glands are unremarkable. The kidneys are symmetric in size. Again noted is mild fullness of the right-sided collecting system with mild dilatation of the right ureter, however, there are no right-sided renal or ureteral calculi identified. No left-sided renal calculi or left-sided hydronephrosis identified. The stomach is decompressed. Normal caliber loops of small and large bowel. Normal appendix. Normal caliber abdominal aorta. No retroperitoneal lymphadenopathy. Similar small fat-containing umbilical hernia. The bladder is normal in appearance. Unremarkable CT appearance of the uterus. Small amount of free pelvic fluid, nonspecific. No inguinal lymphadenopathy bilaterally. No acute osseous abnormality. CT/CT abdomen pelvis wo IV con IMPRESSION: 1. Again noted is mild fullness of the right-sided collecting system with mild dilatation of the right ureter, however, there are no right-sided renal or ureteral calculi identified. 2. Diffusely decreased liver attenuation suggesting hepatic steatosis. Correlation with liver enzymes recommended. Fleischner guidelines were followed. Electronically signed by: Chon Rodriguez MD 07/13/2024 02:46 PM [facility]
[2024-07-13 12:35] LABS: Basophils Percent Auto 0.2 % (0-2); Eosinophils Absolute Auto 0.2 X10*3/uL (0.0-0.4); Eosinophils Percent Auto 1.1 % (0-4); Hematocrit 30.2 % (37.0-47.0); Hemoglobin 9.6 g/dl (12.0-16.0); Imm Gran Abs Auto 0.09 X10*3/uL (0.00-0.03); Imm Gran Pct Auto 0.6 % (0.0-0.4); Lymphocytes Absolute Auto 1.1 X10*3/uL (1.2-4.9); Lymphocytes Percent Auto 7.4 % (20-40); MANUAL DIFF FLAG SCAN; Mean Corpuscular HGB Conc 31.8 g/dl (31.0-35.0); Mean Corpuscular Hemoglobin 22.8 pg (27.0-33.0); Mean Corpuscular Volume 71.7 fL (80.0-98.0); Mean Platelet Volume 8.6 fL (9.4-12.3); Monocytes Absolute Auto 1.6 X10*3/uL (0.1-1.2); Monocytes Percent Auto 10.9 % (2-11); Neutrophils Absolute Auto 11.9 x10*3/uL (2.0-8.3); Neutrophils Percent Auto 79.8 % (45-73); Platelet Count 273 X10*3/uL (160-400); Red Blood Count 4.21 X10*6/uL (4.20-5.50); Red Cell Distribution Width 17.8 % (11.0-16.0); SCAN SMEAR FLAG 1; White Blood Count 14.9 X10*3/uL (4.8-10.8)
--- NOTE | 2024-07-13 12:48 | ED_ITS ---
HPI - General Adult General Chief complaint: General Medical Stated complaint: BACK PAIN FALL THIS MORNING Time Seen by Provider: 07/13/24 12:18 Source: patient and EMS Mode of arrival: EMS Limitations: no limitations History of Present Illness ED Provider: DAVID LEVINE PA-C HPI narrative: 34-year-old female with pmhx significant for asthma presents to the ED today for evaluation of right flank pain x2 days. Patient states that the pain has been constant, now radiating to her lower abdomen bilaterally. Reports fever of 102F at home yesterday. Took tylenol, last dose yesterday. Reports walking to her bathroom at 4:00 a.m. today and felt dizzy. Reports falling to the ground. Denies head strike or LOC. she was able to stand up and ambulate back to her bed. Denies sustaining any injury during the fall. Denies nausea or vomiting, diarrhea, dysuria, hematuria, vaginal discharge. Denies known sick contacts. She states she is not sexually active. No concern for STDs or . Per EMS, patient was satting 94% on room air on arrival. They placed her on 2 L nasal cannula. On my questioning, patient denies shortness of breath. Denies difficulty breathing or wheezing. Denies chest pain. Related Data Home Medications ?Medication ?Instructions ?Recorded ?Confirmed albuterol sulfate 90 mcg/actuation 2 puff inhalation Q4H PRN 07/13/24 07/13/24 aerosol inhaler shortness of breath or wheezing diphenhydramine HCl 50 mg capsule 50 mg PO Q4H PRN Runny Nose 07/13/24 07/13/24 (Banophen) mometasone 100 mcg/actuation HFA 1 puff inhalation BID PRN 07/13/24 07/13/24 aerosol inhaler (Asmanex HFA) Shortness Of Breath Or Wheezing Previous Rx's ?Medication ?Instructions ?Recorded fluticasone propionate 50 2 spray intranasal DAILY #9.9 mL 08/26/20 mcg/actuation nasal spray,suspension (Flonase Allergy Relief) Allergies Allergy/AdvReac Type Severity Reaction Status Date / Time SEAFOOD Allergy Severe ANAPHYLAXIS Uncoded 07/13/24 11:49 sea food Allergy Unknown anaphylaxis Uncoded 07/13/24 11:49 [facility] Past Medical History Medical History Asthma Social History Social History Household Members: Friend(s) Alcohol intake: current Alcohol intake frequency: holidays/special occasions only Patient Tobacco Use Status: Current everyday Tobacco user Tobacco use type: Cigarette Cigarette Packs Per Day: 0.25 Cigarettes Per Day: 5.0 service: No Physical Exam ED Vital Signs: Vital Signs - 24 hr 07/13/24 11:44 07/13/24 13:52 07/13/24 13:53 Temperature 99.2 F 101.1 F H 102.9 F H Pulse Rate 99 96 Respiratory Rate 18 18 Blood Pressure 124/64 120/69 Pulse Oximetry 100 97 Oxygen Delivery Method Nasal Cannula Room Air 07/13/24 14:58 Temperature Pulse Rate 85 Respiratory Rate 16 Blood Pressure 128/71 Pulse Oximetry 98 Oxygen Delivery Method Room Air BMI result Body Mass Index 33.3 febrile to 102F, vitals otherwise wnl. not hypoxic. General: ill appearing, diaphoretic Skin: Warm, dry, intact. No rashes or lesions. Head: Normocephalic, atraumatic. EENT: Hearing is intact b/l. Conjunctiva clear. PERRLA. EOM intact. Moist mucous membranes.? Neck: Supple without LAD Cardiac: Chest wall symmetric. RRR Lungs: Normal respiratory effort without accessory muscle use. CTA bilaterally Abdomen: soft, non distended, ttp of lower abdomen without rebound or guarding. no palpable masses. normoactive bs x4. no CVAT. Back: No midline spinous or paraspinal tenderness. No step off deformity. Ext: Upper and lower extremities atraumatic, without tenderness, deformity, swelling or erythema. Full ROM throughout. Neuro: AOx3. Normal speech. Ambulating with steady gait. Psych: Appropriate mood and affect. Responds appropriately to questions. Course Course Course Narrative: 1445 -- CBC showing leukocytosis to 14.9 with left shift. Microcytic anemia, H and H above transfusion threshold. Chemistry without acute electrolyte abnormality requiring intervention. No KATINA. Random glucose 93. Normal liver function. Beta HCG undetectable. Urinalysis showing moderate amount of blood, positive nitrites, trace leukocyte esterase, over 20 RBCs, 11-20 WBCs, 6-10 squamous epithelial cells, 4+ bacteria. Will treat for urinary tract infection. Urine negative. > Patient is febrile to 102.9. Vitals are otherwise WNL. I do not have concern for sepsis. Will give 1 dose of ceftriaxone in the ED today for urinary tract infection. She also tested positive for COVID which could also explain fever however awaiting CT abdomen / pelvis to rule out renal infection. tylenol given for fever. will continue to monitor. 1542 -- CT A/P showing fullness to right collecting system with dilation of ureter without noted stone. concern for early pyelonephritis. i reached out to urologist dr. potter who states there is no surgical intervention warranted on their part. given near syncopal episode this morning, I discussed admission with hospitalist Dr. Khanna who has accepted. patient agreeable. patient to be admitted for covid 19 and UTI w/ suspected pyelonephritis requiring IV antibiotics. Medications Administered Generic Name Dose Route Start Last Admin Trade Name Freq PRN Reason Stop Dose Admin Acetaminophen 650 mg 07/13/24 16:10 07/14/24 03:54 Acetaminophen 325 Mg Tablet PO 650 mg Q6H PRN Administration Pain, Mild (Pain Scale 1-3), fever or headache Ceftriaxone Sodium 1 gm 07/14/24 09:00 07/14/24 09:30 Ceftriaxone Sodium 1 Gm Vial IVPUSH 1 gm Q24H NEEL Administration Enoxaparin Sodium 40 mg 07/13/24 17:00 07/13/24 18:22 Enoxaparin Sodium 40 Mg/0.4 Ml Syringe SUBCUT 40 mg Q24H NEEL Administration Melatonin 6 mg 07/13/24 16:10 07/13/24 20:18 Melatonin 3 Mg Tablet PO 6 mg BEDTIME PRN Administration Insomnia Sodium Chloride 3 ml 07/14/24 00:00 07/14/24 09:44 0.9 % Sodium Chloride Flush 3 Ml Syringe IVFLUSH 3 ml QSHIFT NEEL Administration Discontinued Medications Generic Name Dose Route Start Last Admin Trade Name Freq PRN Reason Stop Dose Admin Acetaminophen 975 mg 07/13/24 13:59 07/13/24 14:04 Acetaminophen 325 Mg Tablet PO 07/13/24 14:00 975 mg ONCE ONE Administration Ceftriaxone Sodium 1 gm 07/13/24 14:17 07/13/24 14:56 Ceftriaxone Sodium 1 Gm Vial IVPUSH 07/13/24 14:18 1 gm ONCE ONE Administration Influenza Virus Vaccine 0.5 ml 07/14/24 09:00 07/14/24 09:30 Flu Vacc [id number](6mos Up)/Pf 0.5 Ml Syringe IM 07/14/24 09:01 0.5 ml .ONCE ONE Administration Ketorolac Tromethamine 30 mg 07/13/24 13:02 07/13/24 13:41 Ketorolac Tromethamine 30 Mg/Ml Vial IM 07/13/24 13:03 30 mg ONCE ONE Administration Medical Decision Making Medical Decision Making [facility] Narrative: 34-year-old female with pmhx significant for asthma presents to the ED today for evaluation of right flank pain x2 days. Vital signs stable. Initially with low grade fever at 99.2, now febrile to 102.9F. She is ill appearing. diaphoretic. no respiratory distress. lungs clear. abd soft, ND, ttp of lower abdomen without rebound or guarding. no masses. normoactive BS. no cvat. Differential diagnosis includes anemia, electrolyte abnormality, renal colic, nephrolithiasis, UTI, pyelonephritis, appendicitis, ovarian cyst vs rupture, IUP, ectopic, constipation, viral syndrome, pneumonia Plan for labs, viral swabs, UA, CXR, CT A/P, pain control, re-evaluation. Differential Diagnosis Differential Diagnoses: The differential diagnosis associated with the presentation includes as above. Admission/Observation Consideration of admission/observation: Escalation of care including admission/observation considered Patient admitted to medicine for COVID 19 and UTI w/ early pyelonephritis requiring IV antibiotics Consult Healthcare Provider Management of the patient was discussed with: Hospitalist (Dr. Khanna) and Coverage Specialist (Urologist Dr. Potter) Lab Data [facility] Lab Attestation statement: I reviewed the patient's lab results. as above. 07/14/24 06:07 07/14/24 06:07 Labs: Lab Results 07/13/24 07/13/24 07/13/24 Range/Units 12:26 13:43 13:55 WBC 14.9 H (4.8-10.8) X10*3/uL RBC 4.21 (4.20-5.50) X10*6/uL Hgb 9.6 L (12.0-16.0) g/dl Hct 30.2 L (37.0-47.0) % MCV 71.7 L (80.0-98.0) fL MCH 22.8 L (27.0-33.0) pg MCHC 31.8 (31.0-35.0) g/dl RDW 17.8 H (11.0-16.0) % Plt Count 273 (160-400) X10*3/uL MPV 8.6 L (9.4-12.3) fL Immature Gran % (Auto) 0.6 H (0.0-0.4) % Neut % (Auto) 79.8 H (45-73) % Lymph % (Auto) 7.4 L (20-40) % [place] % (Auto) 10.9 (2-11) % Eos % (Auto) 1.1 (0-4) % Baso % (Auto) 0.2 (0-2) % Lymph # (Auto) 1.1 L (1.2-4.9) X10*3/uL [place] # (Auto) 1.6 H (0.1-1.2) X10*3/uL Eos # (Auto) 0.2 (0.0-0.4) X10*3/uL Baso # (Auto) 0.0 (0.0-0.2) X10*3/uL Abs Immat Gran (auto) 0.09 H (0.00-0.03) X10*3/uL Absolute Neuts (auto) 11.9 H (2.0-8.3) x10*3/uL Absolute Nucleated RBC 0.000 (0.0-0.012) X10*3/uL Nucleated RBC % (auto) 0.0 (0.0-0.2) /100WBC Smear Tech's Comments VERIFIED Sodium 135 (135-145) mmol/L Potassium 3.7 (3.3-5.1) mmol/L Chloride 104 (96-108) mmol/L Carbon Dioxide 21 L (22-29) mmol/L Anion Gap 14 (12-20) BUN 5 L (9-16) mg/dL Creatinine 0.82 (0.5-1.4) mg/dL Estim Creat Clear Calc 106.6 Estimated GFR > 60 Random Glucose 93 (60-115) mg/dL Calcium 9.0 (8.4-10.2) mg/dL Total Bilirubin 1.0 (0.0-1.0) mg/dL Direct Bilirubin 0.3 (0.0-0.5) mg/dL AST 20 (5-31) U/L ALT 11 (0-31) U/L Alkaline Phosphatase 54 (39-117) U/L Total Protein 6.7 (6.5-8.0) g/dL Albumin 3.7 (3.5-5.0) g/dL Beta HCG, Quant < 2 mIU/mL Urine Color Yellow Urine Appearance Cloudy Urine pH 6.5 (5.0-9.0) Ur Specific [place] 1.015 (1.005-1.025) Urine Protein 30 (1+) H (Neg-Trace) mg/dL Urine Glucose (UA) Negative (Negative) mg/dL Urine Ketones Negative (Negative) mg/dL Urine Blood Moderate (2+) H (Negative) Urine Nitrite Positive H (Negative) Ur Leukocyte Esterase Trace H (Negative) Urine RBC >20 H (0-2) /HPF Urine WBC 11-20 H (0-5) /HPF Ur Squamous Epith Cells 6-10 (0-2) /HPF Urine Bacteria 4+ (None Seen) Hyaline Casts 0-2 (0-2) /LPF Urine Test NEGATIVE (NEGATIVE) Influenza Type A (PCR) NEGATIVE (Negative) Influenza Type B (PCR) NEGATIVE (Negative) RSV RNA Qual (PCR) NEGATIVE (Negative) SARS-CoV-2 RNA (RT-PCR) POSITIVE A (Negative) Independent Interpretation I performed an independent interpretation of an: Plain X-Ray and CT Scan Interpretation: CXR without infiltrate or consolidation CT abd/pelvis without obstruction, mild fullness to right kidney Radiology Impression Discussion of test interpretation with radiology: I have reviewed the radiologist's reading. Radiologist Impression: EXAMINATION: XR CHEST CLINICAL INFORMATION: dizzy, fever, r/o pneumonia COMPARISON: None available. TECHNIQUE: 2 views of the chest were obtained. FINDINGS: No significant abnormality is noted involving the heart, lungs, mediastinum, bony thorax or soft tissues. XR/XR chest 2V IMPRESSION: No acute disease Electronically signed by: Abdiaziz Trujillo MD 07/13/2024 01:59 PM [facility] CLINICAL INFORMATION: Lower abdominal and right flank pain COMPARISON: CT abdomen and pelvis February 05, 2024 TECHNIQUE: Multidetector volumetric imaging was performed from the superior aspect of the liver through the pubic symphysis. Sagittal and coronal reformatted images were obtained on the technologist's workstation. This CT examination was performed using dose optimization techniques as appropriate, variously including the following: *Automated exposure control *Adjustment of mA and/or kV according to patient size (this includes techniques or standardized protocols for targeted exams where dose is matched to indication/reason for exam; i.e. extremities or head) *Use of iterative reconstruction technique DLP: 763 mGy-cm FINDINGS: Visualized lung bases are well aerated. There is minimal right basilar atelectasis. The liver is normal in size. There is diffusely decreased attenuation the liver. The gallbladder is normal in appearance. The pancreas, spleen and adrenal glands are unremarkable. The kidneys are symmetric in size. Again noted is mild fullness of the right-sided collecting system with mild dilatation of the right ureter, however, there are no right-sided renal or ureteral calculi identified. No left-sided renal calculi or left-sided hydronephrosis identified. The stomach is decompressed. Normal caliber loops of small and large bowel. Normal appendix. Normal caliber abdominal aorta. No retroperitoneal lymphadenopathy. Similar small fat-containing umbilical hernia. The bladder is normal in appearance. Unremarkable CT appearance of the uterus. Small amount of free pelvic fluid, nonspecific. No inguinal lymphadenopathy bilaterally. No acute osseous abnormality. CT/CT abdomen pelvis wo IV con IMPRESSION: 1. Again noted is mild fullness of the right-sided collecting system with mild dilatation of the right ureter, however, there are no right-sided renal or ureteral calculi identified. 2. Diffusely decreased liver attenuation suggesting hepatic steatosis. Correlation with liver enzymes recommended. Fleischner guidelines were followed. Electronically signed by: Chon Rodriguez MD 07/13/2024 02:46 PM [facility] External Record Review External record reviewed: Inpatient record Prescription Management I considered prescription management with: Pain Medication and Antibiotic Chronic Conditions Patient?s care impacted by: Other (asthma) Social Determinants Patient?s care significantly limited by Social Determinants of Health including: Other Social Determinant of Health Critical Care Time Critical Care Time Critical Care Time: Yes Total Critical Care Time: 40 Attestation: Critical care time in the amount of 40 minutes has been provided to the patient in terms of direct patient care, frequent reevaluation, consultation with urologist and hospitalist, review and interpretation of medical data and results, and management of potentially life-threatening conditions. This is all outside of any medical procedures. Discharge Plan Discharge Clinical Impression: COVID-19, Urinary tract infection, Pyelonephritis Patient Disposition: Admitted As Inpatient Interventions: Admission Worksheet (ED) Last Done: 07/13/24 18:12 Discharge Date/Time: 07/13/24 18:55
[2024-07-13 12:51] LABS: Alanine Aminotransferase 11 U/L (0-31); Albumin Level 3.7 g/dL (3.5-5.0); Alkaline Phosphatase 54 U/L (39-117); Anion Gap 14 (12-20); Aspartate Amino Transferase 20 U/L (5-31); Bilirubin Direct 0.3 mg/dL (0.0-0.5); Blood Urea Nitrogen 5 mg/dL (9-16); Carbon Dioxide 21 mmol/L (22-29); Chloride 104 mmol/L (96-108); Creatinine Clr Calc Pharmacy 106.6; Estimated Glomerular Filt Rate > 60; Glucose Random 93 mg/dL (60-115); Potassium 3.7 mmol/L (3.3-5.1); Sodium 135 mmol/L (135-145); Total Protein 6.7 g/dL (6.5-8.0)
[2024-07-13 13:03] LABS: SLIDE REVIEW VERIFIED
[2024-07-13 13:27] LABS: HCG Quantitative < 2 mIU/mL
[2024-07-13] MEDS: Ketorolac Tromethamine 30 MG/ML VIAL IM (13:41)
[2024-07-13 14:00] LABS: Appearance Urine Cloudy; Color Urine Yellow; Glucose Urine UA Negative (Negative); Leukocyte Esterase Urine Trace (Negative); Nitrite Urine Positive (Negative); PH 6.5 (5.0-9.0); Specific Gravity - Urine 1.015 (1.005-1.025); UMIC TRIGGER UACC YES; Urine Blood Moderate (2+) (Negative); Urine Ketones Negative (Negative); Urine Protein 30 (1+) mg/dL (Neg-Trace)
[2024-07-13 14:01] LABS: UPreg QC Valid YES; Urine Pregnancy NEGATIVE (NEGATIVE)
[2024-07-13] MEDS: Acetaminophen 325 MG TABLET 975 MG PO (14:04)
[2024-07-13 14:05] LABS: Bacteria Urine 4+ (None Seen); Hyaline Casts Urine 0-2 /LPF (0-2); RBC Urine >20 /HPF (0-2); UACC Culture Trigger YES
[2024-07-13 14:30] LABS: Influenza A PCR NEGATIVE (Negative); Influenza B PCR NEGATIVE (Negative); Resp Syncy Virus RNA Qual PCR NEGATIVE (Negative); SARS COV2 PCR INHOUSE POSITIVE (Negative)
[2024-07-13] MEDS: cefTRIAXone sodium 1 GM VIAL IVPUSH (14:56)
--- NOTE | 2024-07-13 16:13 | P.HPHOSP_ITS ---
History of Present Illness Date of Service: 07/13/24 Chief Complaint: dizzy, fever, right flank pain 34F PMH obesity, moderate persistent asthma, presented with presyncope. Patient states she has had 1 day history of right flank pain 10/10, constant, similar to pain she had in January of this year. On day of presentation started to have subjective fevers, felt dizzy and lightheaded and fell to the ground without trauma or loss of consciousness so came to the ED. in ED found to have fever and leukocytosis, CT abdomen with mild right hydro, UA positive, covid positive. Review of Systems 2 Review of Systems: Yes all other systems are reviewed and are negative PMFSH Medical History Asthma Social History Alcohol intake: current Alcohol intake frequency: holidays/special occasions only Patient Tobacco Use Status: Current everyday Tobacco user Smoked in Last 30 Days: Yes Use of substances other than those prescribed or required for medical reasons: No Advance Directives: No Advance Directives Information Provided: No Do you have a plan to hurt others: No Plan Patient : No Meds Allergies Allergy/AdvReac Type Severity Reaction Status Date / Time SEAFOOD Allergy Severe ANAPHYLAXIS Uncoded 07/13/24 11:49 sea food Allergy Unknown anaphylaxis Uncoded 07/13/24 11:49 Home Medications ?Medication ?Instructions ?Recorded ?Confirmed ?Last Taken ?Type albuterol sulfate 90 mcg/actuation 2 puff inhalation Q4H PRN 07/13/24 Unknown History aerosol inhaler shortness of breath or wheezing buprenorphine 8 mg-naloxone 2 mg 3 film sublingual DAILY 07/13/24 Unknown History sublingual film (Suboxone) diphenhydramine HCl 50 mg capsule 50 mg PO Q4H PRN Runny Nose 07/13/24 Unknown History (Banophen) mometasone 100 mcg/actuation HFA 1 puff inhalation BID 07/13/24 Unknown History aerosol inhaler (Asmanex HFA) Physical Exam 2 Vital Signs and Narrative: Vital Signs: Last Vital Signs Temp 102.9 F H 07/13/24 13:53 Pulse 85 07/13/24 14:58 Resp 16 07/13/24 14:58 BP 128/71 07/13/24 14:58 Pulse Ox 98 07/13/24 14:58 O2 Del Method Room Air 07/13/24 14:58 Oxygen Flow Rate 2 07/13/24 11:44 BMI result Body Mass Index 33.3 General: AO X 3, no acute distress Resp: CTA bilateral, no accessory muscles used CVS: S1,S2,RRR GI: soft, non tender, non distended Neuro: motor grossly intact, alert Psych: appropriate affect, appropriate insight Results Labs 07/13/24 12:26 07/13/24 12:26 Labs: Laboratory Results - last 24 hr 07/13/24 07/13/24 07/13/24 12:26 13:43 13:55 MCV 71.7 L MCH 22.8 L MCHC 31.8 RDW 17.8 H Plt Count 273 MPV 8.6 L Immature Gran % (Auto) 0.6 H Neut % (Auto) 79.8 H Lymph % (Auto) 7.4 L [place] % (Auto) 10.9 Eos % (Auto) 1.1 Baso % (Auto) 0.2 Lymph # (Auto) 1.1 L [place] # (Auto) 1.6 H Eos # (Auto) 0.2 Baso # (Auto) 0.0 Abs Immat Gran (auto) 0.09 H Absolute Neuts (auto) 11.9 H Absolute Nucleated RBC 0.000 Nucleated RBC % (auto) 0.0 Smear Tech's Comments VERIFIED Anion Gap 14 Estim Creat Clear Calc 106.6 Estimated GFR > 60 Random Glucose 93 Calcium 9.0 Total Bilirubin 1.0 Direct Bilirubin 0.3 AST 20 ALT 11 Alkaline Phosphatase 54 Total Protein 6.7 Albumin 3.7 Beta HCG, Quant < 2 Urine Color Yellow Urine Appearance Cloudy Urine pH 6.5 Ur Specific [place] 1.015 Urine Protein 30 (1+) H Urine Glucose (UA) Negative Urine Ketones Negative Urine Blood Moderate (2+) H Urine Nitrite Positive H Ur Leukocyte Esterase Trace H Urine RBC >20 H Urine WBC 11-20 H Ur Squamous Epith Cells 6-10 Urine Bacteria 4+ Hyaline Casts 0-2 Urine Test NEGATIVE Influenza Type A (PCR) NEGATIVE Influenza Type B (PCR) NEGATIVE RSV RNA Qual (PCR) NEGATIVE SARS-CoV-2 RNA (RT-PCR) POSITIVE A Imaging Radiologist's Impressions: Impressions Abdomen/Pelvis CT 07/13/24 13:32 IMPRESSION: 1. Again noted is mild fullness of the right-sided collecting system with mild dilatation of the right ureter, however, there are no right-sided renal or ureteral calculi identified. 2. Diffusely decreased liver attenuation suggesting hepatic steatosis. Correlation with liver enzymes recommended. Fleischner guidelines were followed. Electronically signed by: Chon Rodriguez MD 07/13/2024 02:46 PM EST RP Chest X-Ray 07/13/24 13:32 IMPRESSION: No acute disease Electronically signed by: Abdiaziz Trujillo MD 07/13/2024 01:59 PM EST RP Assessment and Plan (1) Urinary tract infection: Status: Acute Plan 34F PMH obesity, moderate persistent asthma, presented with presyncope Sepsis due to acute pyelonephritis complicated by mild right hydronephrosis IV ceftriaxone, follow-up cultures, eval COVID positive Incidental, asymptomatic Steatohepatitis on CT Suspect nonalcoholic fatty liver disease Viral hepatitis from earlier this year negative Reports alcohol use on weekends Outpatient follow up Obesity Weight loss recommended Moderate persistent asthma Stable, uses albuterol p.r.n. DVT prophylaxis with Lovenox Full Code Patient with sepsis due to pyelonephritis will require at least 2 midnights inpatient to complete cultures and continue IV antibiotics Quality Stroke Does the patient have a stroke diagnosis?: No VTE Prior VTE?: No VTE Risk Level:: Medical - moderate - high VTE Device Contraindication: Treatment Not Indicated VTE Drug Contraindication: N/A - Med Ordered
--- NOTE | 2024-07-13 17:05 | PHA.MEDREC ---
Addendum entered by Rissa Lopez RPh 07/13/24 17:12: Med rec was reviewed. Original Note: Pharmacy Consult ? Medication Reconciliation Pharmacy has completed the medication reconciliation. Spoke with patient to confirm medications. SHE IS NOT ON SUBOXONE. She believes someone may be fraudulently filling it under her name or they have wrong patient. She reports she has never been on it before and was confused as to why we have been asking her about it. She is going to call [facility] to figure it out. She is currently not on prednisone.
--- NOTE | 2024-07-13 17:35 | P.CNUR_ITS ---
History of Present Illness Consult details Consult date: 07/13/24 Narrative: CC: Pyelonephritis right side 34-year-old female Presents through emergency room with dizziness. One day history of right flank pain. Similar to prior episode in January. Found to have fevers, dizziness and lightheaded. WBC at admission 14.9, creatinine 0.8 UA positive nitrite Urinary culture currently pending Urine culture from January showed E coli pansensitive Imaging - CT mild fullness of the right-sided collecting system with mild dilatation of the right ureter, however, there are no right-sided renal or ureteral calculi identified Has been admitted for antibiotic administration and concurrent COVID diagnosis No indication for acute urologic mention Review of Systems 2 Constitutional: Constitutional: Reports as per HPI and Reports no additional constitutional complaints Cardiovascular: Cardiovascular: Reports as per HPI and Reports no additional cardiovascular complaints Respiratory: Respiratory: Reports as per HPI and Reports no additional respiratory complaints Gastrointestinal: Gastrointestinal: Reports as per HPI and Reports no additional gastrointestinal complaints Genitourinary: Genitourinary: Reports as per HPI Musculoskeletal: Musculoskeletal: Reports no additional musculoskeletal complaints and Reports as per HPI Neurologic: Reports system reviewed and no additional complaints, except as documented and Reports as per HPI [facility] Past Medical History Medical History Asthma Social History Social History Alcohol intake: current Alcohol intake frequency: holidays/special occasions only Patient Tobacco Use Status: Current everyday Tobacco user Smoked in Last 30 Days: Yes Use of substances other than those prescribed or required for medical reasons: No Advance Directives: No Advance Directives Information Provided: No Do you have a plan to hurt others: No Plan Nutrition Risks: No Nutritional Risk Patient : No Meds Allergies Allergy/AdvReac Type Severity Reaction Status Date / Time SEAFOOD Allergy Severe ANAPHYLAXIS Uncoded 07/13/24 11:49 sea food Allergy Unknown anaphylaxis Uncoded 07/13/24 11:49 Active Medications: Current Medications Acetaminophen (Acetaminophen 325 Mg Tablet) 650 mg PO Q6H PRN PRN Reason: Pain, Mild (Pain Scale 1-3), fever or headache Albuterol Sulfate (Albuterol Sulfate 90 Mcg 8 Gm Inhaler) 2 puff INHALE RQ4H PRN PRN Reason: sob Calcium Carbonate (Calcium Carbonate 750 Mg Tab.Chew) 750 mg PO Q4H PRN PRN Reason: Heartburn Ceftriaxone Sodium (Ceftriaxone Sodium 1 Gm Vial) 1 gm IVPUSH Q24H NEEL Enoxaparin Sodium (Enoxaparin Sodium 40 Mg/0.4 Ml Syringe) 40 mg SUBCUT Q24H NEEL Fluticasone Propionate (Fluticasone Propionate 100 Mcg Blst.W.Dev) 1 puff INHALE BID PRN PRN Reason: Shortness Of Breath Or Wheezing Magnesium Hydroxide (Milk Of Magnesia 30 Ml Oral.Susp) 30 ml PO DAILY PRN PRN Reason: Constipation Melatonin (Melatonin 3 Mg Tablet) 6 mg PO BEDTIME PRN PRN Reason: Insomnia Morphine Sulfate (Morphine Sulfate 2 Mg/Ml Cartridge) 2 mg IVPUSH Q4H PRN; Protocol PRN Reason: Pain, Severe (Pain Scale 7-10) Sodium Chloride (0.9 % Sodium Chloride Flush 3 Ml Syringe) 3 ml IVFLUSH QSHIFT [facility] Home Medications ?Medication ?Instructions ?Recorded ?Confirmed ?Last Taken ?Type albuterol sulfate 90 mcg/actuation 2 puff inhalation Q4H PRN 07/13/24 07/13/24 Unknown History aerosol inhaler shortness of breath or wheezing diphenhydramine HCl 50 mg capsule 50 mg PO Q4H PRN Runny Nose 07/13/24 07/13/24 Unknown History (Banophen) mometasone 100 mcg/actuation HFA 1 puff inhalation BID PRN 07/13/24 07/13/24 Unknown History aerosol inhaler (Asmanex HFA) Shortness Of Breath Or Wheezing Physical Exam 2 Vital Signs: Vital Signs: Last Vital Signs Temp 98.9 F 07/13/24 16:40 Pulse 85 07/13/24 14:58 Resp 16 07/13/24 14:58 BP 128/71 07/13/24 14:58 Pulse Ox 98 07/13/24 14:58 O2 Del Method Room Air 07/13/24 14:58 Oxygen Flow Rate 2 07/13/24 11:44 BMI result Body Mass Index 33.3 Const: General: cooperative, healthy appearing, comfortable and no acute distress Orientation/consciousness: patient oriented x3 HEENT: Face and sinus: Yes normal facial exam Mouth: moist mucous membranes Neck: Neck: Yes normal visual inspection, Yes full ROM and Yes trachea midline Chest: Chest palpation & inspection: normal inspection of the chest Resp: Effort & Inspection: normal respiratory effort, able to speak in complete sentences and no respiratory distress GI: Inspection: Yes normal to inspection Back/Spine/Pelvis: Cervical Spine: normal cervical lordosis Thoracic/Lumbar Spine: thoracic and lumbar spine normal to inspection Skin: General skin exam: no rashes or lesions noted Neuro: General: patient oriented x3, tone normal and moves all extremities Extrem: General: Yes normal to inspection and Yes capillary refill normal Results Labs 07/13/24 12:26 07/13/24 12:26 Labs: Abnormal lab results 07/13/24 07/13/24 07/13/24 Range/Units 12:26 13:43 13:55 WBC 14.9 H (4.8-10.8) X10*3/uL Hgb 9.6 L (12.0-16.0) g/dl Hct 30.2 L (37.0-47.0) % MCV 71.7 L (80.0-98.0) fL MCH 22.8 L (27.0-33.0) pg RDW 17.8 H (11.0-16.0) % MPV 8.6 L (9.4-12.3) fL Immature Gran % (Auto) 0.6 H (0.0-0.4) % Neut % (Auto) 79.8 H (45-73) % Lymph % (Auto) 7.4 L (20-40) % Lymph # (Auto) 1.1 L (1.2-4.9) X10*3/uL [place] # (Auto) 1.6 H (0.1-1.2) X10*3/uL Abs Immat Gran (auto) 0.09 H (0.00-0.03) X10*3/uL Absolute Neuts (auto) 11.9 H (2.0-8.3) x10*3/uL Carbon Dioxide 21 L (22-29) mmol/L BUN 5 L (9-16) mg/dL Urine Protein 30 (1+) H (Neg-Trace) mg/dL Urine Blood Moderate (2+) H (Negative) Urine Nitrite Positive H (Negative) Ur Leukocyte Esterase Trace H (Negative) Urine RBC >20 H (0-2) /HPF Urine WBC 11-20 H (0-5) /HPF SARS-CoV-2 RNA (RT-PCR) POSITIVE A (Negative) Short CBC 07/13/24 Range/Units 12:26 WBC 14.9 H (4.8-10.8) X10*3/uL Hgb 9.6 L (12.0-16.0) g/dl Hct 30.2 L (37.0-47.0) % Plt Count 273 (160-400) X10*3/uL BMP 07/13/24 12:26 Sodium 135 Potassium 3.7 Chloride 104 Carbon Dioxide 21 L BUN 5 L Creatinine 0.82 Calcium 9.0 Liver Function 07/13/24 Range/Units 12:26 Total Bilirubin 1.0 (0.0-1.0) mg/dL Direct Bilirubin 0.3 (0.0-0.5) mg/dL AST 20 (5-31) U/L ALT 11 (0-31) U/L Alkaline Phosphatase 54 (39-117) U/L Albumin 3.7 (3.5-5.0) g/dL Urine 07/13/24 Range/Units 13:55 Urine Color Yellow Urine Appearance Cloudy Urine pH 6.5 (5.0-9.0) Ur Specific [place] 1.015 (1.005-1.025) Urine Protein 30 (1+) H (Neg-Trace) mg/dL Urine Glucose (UA) Negative (Negative) mg/dL Urine Test NEGATIVE (NEGATIVE) All other labs normal. Assessment and Plan (1) Pyelonephritis: Status: Acute Plan Medical therapy Procedures Date of Service Date of Service: 07/13/24
[2024-07-13] MEDS: Enoxaparin Sodium 40 MG/0.4 ML SYRINGE SUBCUT (18:22)
[2024-07-13] MEDS: 0.9 % Sodium Chloride Flush 3 ML SYRINGE IVFLUSH (20:00)
[2024-07-13] MEDS: Melatonin 3 MG TABLET 6 MG PO (20:18)
[2024-07-14 03:30] VITALS: BP 115/61; PULSE 87; RESP 14; TEMP 37.9; O2SAT 97
[2024-07-14] MEDS: Acetaminophen 325 MG TABLET 650 MG PO ×3 (03:54→22:39)
[2024-07-14 06:37] LABS: Hematocrit 30.1 % (37.0-47.0); Hemoglobin 9.4 g/dl (12.0-16.0); Mean Corpuscular HGB Conc 31.2 g/dl (31.0-35.0); Mean Corpuscular Hemoglobin 22.7 pg (27.0-33.0); Mean Corpuscular Volume 72.7 fL (80.0-98.0); Mean Platelet Volume 9.7 fL (9.4-12.3); Platelet Count 293 X10*3/uL (160-400); Red Blood Count 4.14 X10*6/uL (4.20-5.50); Red Cell Distribution Width 17.8 % (11.0-16.0); White Blood Count 10.8 X10*3/uL (4.8-10.8)
[2024-07-14 06:54] LABS: Anion Gap 11 (12-20); Blood Urea Nitrogen 9 mg/dL (9-16); Carbon Dioxide 24 mmol/L (22-29); Chloride 104 mmol/L (96-108); Creatinine Clr Calc Pharmacy 94.9; Estimated Glomerular Filt Rate > 60; Glucose Fasting 98 mg/dL (60-99); Potassium 3.7 mmol/L (3.3-5.1); Sodium 135 mmol/L (135-145)
[2024-07-14 08:00] VITALS: BP 115/67; PULSE 80; RESP 17; TEMP 36.6; O2SAT 99
--- NOTE | 2024-07-14 09:29 | MHC.CM.PN ---
Pt self-care, lives at home with her 2 children and a friend. Pt will arrange her own transportation home at discharge. New HCP completed, now on file. PCP: Karolyn Fuller
[2024-07-14] MEDS: Flu Vacc TS2024-25(6mos up)/PF 0.5 ML SYRINGE IM (09:30)
[2024-07-14] MEDS: cefTRIAXone sodium 1 GM VIAL IVPUSH (09:30)
--- NOTE | 2024-07-14 09:34 | HO.PM.IMPN ---
Subjective Subjective Date of Service: 07/14/24 Interval History: improving Physical Exam Vital Signs: Vital Signs: Last Vital Signs Temp 97.9 F 07/14/24 08:00 Pulse 80 07/14/24 08:00 Resp 17 07/14/24 08:00 BP 115/67 07/14/24 08:00 Pulse Ox 99 07/14/24 08:00 O2 Del Method Room Air 07/14/24 08:00 Oxygen Flow Rate 2 07/13/24 11:44 BMI result Body Mass Index 33.3 General: AO X 3, no acute distress Resp: CTA bilateral, no accessory muscles used CVS: S1,S2,RRR GI: soft, non tender, non distended Neuro: motor grossly intact, alert Psych: appropriate affect, appropriate insight Objective Data Active Medications Acetaminophen (Acetaminophen 325 Mg Tablet) 650 mg PO Q6H PRN PRN Reason: Pain, Mild (Pain Scale 1-3), fever or headache Last Admin: 07/14/24 03:54 Dose: 650 mg Documented By: BENNETT Albuterol Sulfate (Albuterol Sulfate 90 Mcg 8 Gm Inhaler) 2 puff INHALE RQ4H PRN PRN Reason: sob Calcium Carbonate (Calcium Carbonate 750 Mg Tab.Chew) 750 mg PO Q4H PRN PRN Reason: Heartburn Ceftriaxone Sodium (Ceftriaxone Sodium 1 Gm Vial) 1 gm IVPUSH Q24H NEEL Enoxaparin Sodium (Enoxaparin Sodium 40 Mg/0.4 Ml Syringe) 40 mg SUBCUT Q24H NEEL Last Admin: 07/13/24 18:22 Dose: 40 mg Documented By: MATHEUS Fluticasone Propionate (Fluticasone Propionate 100 Mcg Blst.W.Dev) 1 puff INHALE BID PRN PRN Reason: Shortness Of Breath Or Wheezing Magnesium Hydroxide (Milk Of Magnesia 30 Ml Oral.Susp) 30 ml PO DAILY PRN PRN Reason: Constipation Melatonin (Melatonin 3 Mg Tablet) 6 mg PO BEDTIME PRN PRN Reason: Insomnia Last Admin: 07/13/24 20:18 Dose: 6 mg Documented By: BENNETT Morphine Sulfate (Morphine Sulfate 2 Mg/Ml Cartridge) 2 mg IVPUSH Q4H PRN; Protocol PRN Reason: Pain, Severe (Pain Scale 7-10) Sodium Chloride (0.9 % Sodium Chloride Flush 3 Ml Syringe) 3 ml IVFLUSH QSHIFT [facility] Last Admin: 07/13/24 20:00 Dose: 3 ml Documented By: BENNETT Labs 07/14/24 06:07 07/14/24 06:07 Labs: Laboratory Results - last 24 hr 07/13/24 07/13/24 07/13/24 12:26 13:43 13:55 MCV 71.7 L MCH 22.8 L MCHC 31.8 RDW 17.8 H Plt Count 273 MPV 8.6 L Immature Gran % (Auto) 0.6 H Neut % (Auto) 79.8 H Lymph % (Auto) 7.4 L [place] % (Auto) 10.9 Eos % (Auto) 1.1 Baso % (Auto) 0.2 Lymph # (Auto) 1.1 L [place] # (Auto) 1.6 H Eos # (Auto) 0.2 Baso # (Auto) 0.0 Abs Immat Gran (auto) 0.09 H Absolute Neuts (auto) 11.9 H Absolute Nucleated RBC 0.000 Nucleated RBC % (auto) 0.0 Smear Tech's Comments VERIFIED Anion Gap 14 Estim Creat Clear Calc 106.6 Estimated GFR > 60 Random Glucose 93 Fasting Glucose Calcium 9.0 Total Bilirubin 1.0 Direct Bilirubin 0.3 AST 20 ALT 11 Alkaline Phosphatase 54 Total Protein 6.7 Albumin 3.7 Beta HCG, Quant < 2 Urine Color Yellow Urine Appearance Cloudy Urine pH 6.5 Ur Specific [place] 1.015 Urine Protein 30 (1+) H Urine Glucose (UA) Negative Urine Ketones Negative Urine Blood Moderate (2+) H Urine Nitrite Positive H Ur Leukocyte Esterase Trace H Urine RBC >20 H Urine WBC 11-20 H Ur Squamous Epith Cells 6-10 Urine Bacteria 4+ Hyaline Casts 0-2 Urine Test NEGATIVE Influenza Type A (PCR) NEGATIVE Influenza Type B (PCR) NEGATIVE RSV RNA Qual (PCR) NEGATIVE SARS-CoV-2 RNA (RT-PCR) POSITIVE A 07/14/24 06:07 MCV 72.7 L MCH 22.7 L MCHC 31.2 RDW 17.8 H Plt Count 293 MPV 9.7 Immature Gran % (Auto) Neut % (Auto) Lymph % (Auto) [place] % (Auto) Eos % (Auto) Baso % (Auto) Lymph # (Auto) [place] # (Auto) Eos # (Auto) Baso # (Auto) Abs Immat Gran (auto) Absolute Neuts (auto) Absolute Nucleated RBC 0.000 Nucleated RBC % (auto) 0.0 Smear Tech's Comments Anion Gap 11 L Estim Creat Clear Calc 94.9 Estimated GFR > 60 Random Glucose Fasting Glucose 98 Calcium 9.0 Total Bilirubin Direct Bilirubin AST ALT Alkaline Phosphatase Total Protein Albumin Beta HCG, Quant Urine Color Urine Appearance Urine pH Ur Specific [place] Urine Protein Urine Glucose (UA) Urine Ketones Urine Blood Urine Nitrite Ur Leukocyte Esterase Urine RBC Urine WBC Ur Squamous Epith Cells Urine Bacteria Hyaline Casts Urine Test Influenza Type A (PCR) Influenza Type B (PCR) RSV RNA Qual (PCR) SARS-CoV-2 RNA (RT-PCR) Microbiology Microbiology Results: Microbiology 07/13/24 Unknown Urine Culture - Preliminary Urine clean catch - Clean Catch Midstream Gram negative jay Assessment and Plan (1) Urinary tract infection: Status: Acute Plan 34F PMH obesity, moderate persistent asthma, presented with presyncope Sepsis due to acute pyelonephritis complicated by mild right hydronephrosis IV ceftriaxone, follow-up cultures - urine growing gnr, appreciated - no intervention needed at this time COVID positive Incidental, asymptomatic Steatohepatitis on CT Suspect nonalcoholic fatty liver disease Viral hepatitis from earlier this year negative Reports alcohol use on weekends Outpatient follow up Obesity Weight loss recommended Moderate persistent asthma Stable, uses albuterol p.r.n. DVT prophylaxis with Lovenox Full Code reason for continued hospitalization:awaiting cultures Quality Stroke Does the patient have a stroke diagnosis?: No VTE Prior VTE?: No VTE Risk Level:: Medical - moderate - high VTE Device Contraindication: Treatment Not Indicated VTE Drug Contraindication: N/A - Med Ordered
[2024-07-14] MEDS: 0.9 % Sodium Chloride Flush 3 ML SYRINGE IVFLUSH ×3 (09:44→21:18)
[2024-07-14 12:48] VITALS: BP 120/65; PULSE 75; RESP 18; TEMP 36.9; O2SAT 98
[2024-07-14 15:50] VITALS: BP 129/70; PULSE 88; RESP 16; TEMP 36.9; O2SAT 98
[2024-07-14] MEDS: Enoxaparin Sodium 40 MG/0.4 ML SYRINGE SUBCUT (16:29)
[2024-07-14 20:00] VITALS: BP 118/58; RESP 20; TEMP 36.6; O2SAT 100
[2024-07-14] MEDS: Melatonin 3 MG TABLET 6 MG PO (21:15)
[2024-07-14 23:14] VITALS: BP 104/58; PULSE 73; RESP 20; TEMP 36.6; O2SAT 98
[2024-07-15 03:21] VITALS: BP 103/54; PULSE 75; RESP 20; TEMP 36.4; O2SAT 97
[2024-07-15 07:18] LABS: Hematocrit 28.6 % (37.0-47.0); Hemoglobin 8.9 g/dl (12.0-16.0); Mean Corpuscular HGB Conc 31.1 g/dl (31.0-35.0); Mean Corpuscular Hemoglobin 22.8 pg (27.0-33.0); Mean Corpuscular Volume 73.3 fL (80.0-98.0); Mean Platelet Volume 9.4 fL (9.4-12.3); Platelet Count 293 X10*3/uL (160-400); White Blood Count 7.9 X10*3/uL (4.8-10.8)
[2024-07-15 07:30] LABS: Anion Gap 13 (12-20); Blood Urea Nitrogen 9 mg/dL (9-16); Calcium 8.4 mg/dL (8.4-10.2); Carbon Dioxide 22 mmol/L (22-29); Chloride 106 mmol/L (96-108); Creatinine Clr Calc Pharmacy 116.5; Estimated Glomerular Filt Rate > 60; Glucose Fasting 104 mg/dL (60-99); Potassium 3.8 mmol/L (3.3-5.1); Sodium 137 mmol/L (135-145)
[2024-07-15 07:32] VITALS: BP 109/62; PULSE 74; RESP 17; TEMP 36.6; O2SAT 99
[2024-07-15] MEDS: 0.9 % Sodium Chloride Flush 3 ML SYRINGE IVFLUSH (09:09)
[2024-07-15] MEDS: cefTRIAXone sodium 1 GM VIAL IVPUSH (09:09)
--- NOTE | 2024-07-15 09:48 | PM.DS ---
DS: Providers Provider Date of Service: 07/15/24 Date of admission: 07/13/24 16:12 Date of discharge: 07/15/24 Primary care physician: Karolyn Kramer DO Consults: 07/13/24 16:10 Consult to Urology Routine Consulting Provider: [facility] Reason for consultation: pyelo with right flank pain and mild right hydro DS: Diagnosis Discharge Diagnosis (1) Urinary tract infection: Status: Acute DS: Summary Hospital Course Hospital Course: from initial hpi: 34F PMH obesity, moderate persistent asthma, presented with presyncope. Patient states she has had 1 day history of right flank pain 10/10, constant, similar to pain she had in January of this year. On day of presentation started to have subjective fevers, felt dizzy and lightheaded and fell to the ground without trauma or loss of consciousness so came to the ED. in ED found to have fever and leukocytosis, CT abdomen with mild right hydro, UA positive, covid positive. hospital course: Patient was admitted for sepsis due to acute pyelonephritis complicated by mild right hydronephrosis. She was treated with IV ceftriaxone, urine culture grew pansensitive E coli. Was seen by Urology who felt patient did not need intervention at this time. Patient's pain and sepsis resolved. Will be discharged on 7 more days of levofloxacin. Patient was incidentally noted to be COVID positive and is asymptomatic no treatment necessary. For steatohepatitis seen on CT scan this is likely nonalcoholic steatohepatitis weight loss is recommended for obesity, with limited alcohol intake and follow up outpatient. For moderate persistent asthma remained stable. Patient is feeling better will be discharged home. Time Attestation Discharge Coordination Time (in mins): 34 Quality: Safe Use of Opioids Does Pt have an Active Cancer Diagnosis on the Problem List?: No Quality: Stroke Does the patient have a stroke diagnosis?: No Physical Exam Vital Signs: Vital Signs: Last Vital Signs Temp 97.9 F 07/15/24 07:32 Pulse 74 07/15/24 07:32 Resp 17 07/15/24 07:32 BP 109/62 07/15/24 07:32 Pulse Ox 99 07/15/24 07:32 O2 Del Method Room Air 07/15/24 07:32 Oxygen Flow Rate 2 07/13/24 11:44 BMI result Body Mass Index 33.3 General: AO X 3, no acute distress Resp: CTA bilateral, no accessory muscles used CVS: S1,S2,RRR GI: soft, non tender, non distended Neuro: motor grossly intact, alert Psych: appropriate affect, appropriate insight DS: Data Data Completed and Pending Labs on day of discharge: Laboratory Results - last 24 hr 07/15/24 07:03 WBC 7.9 RBC 3.90 L Hgb 8.9 L Hct 28.6 L MCV 73.3 L MCH 22.8 L MCHC 31.1 RDW 18.0 H Plt Count 293 MPV 9.4 Absolute Nucleated RBC 0.000 Nucleated RBC % (auto) 0.0 Sodium 137 Potassium 3.8 Chloride 106 Carbon Dioxide 22 Anion Gap 13 BUN 9 Creatinine 0.75 Estim Creat Clear Calc 116.5 Estimated GFR > 60 Fasting Glucose 104 H Calcium 8.4 D Discharge Plan Discharge Anticipated Discharge Date/Time: 07/15/24 09:46 Patient Disposition: Home, Self-Care Discharge Diagnosis: sepsis, pyelonephritis, covid Referrals: Karolyn Kramer DO [Primary Care Provider] - 1 Week Discharge Medications: New levofloxacin 500 mg tablet 500 mg PO DAILY Qty: 7 0RF Continued fluticasone propionate [Flonase Allergy Relief] 50 mcg/actuation spray,suspension 2 spray intranasal DAILY Qty: 9.9 0RF Rx Instructions: administer into each nostril diphenhydramine HCl [Banophen] 50 mg capsule 50 mg PO Q4H PRN (Reason: Runny Nose) Asmanex HFA 100 mcg/actuation HFA aerosol inhaler 1 puff INHALATION BID PRN (Reason: Shortness Of Breath Or Wheezing) albuterol sulfate 90 mcg/actuation HFA aerosol inhaler 2 puff inhalation Q4H PRN (Reason: shortness of breath or wheezing) Discharge Orders: Discharge Order (Routine); Ordered 07/15/24 Ordered By: Paco Khanna Diet: Advance to usual diet Activity on Discharge: As tolerated Stand Alone Forms: Patient Portal Discharge page Print Language: Greenlandic Care Plan Goals: recovery Health Concerns: pyelonephritis Plan of Treatment: 7 days levaquin Assessment: see above
--- NOTE | 2024-07-15 09:55 | MHC.CM.PN ---
Pt has been medically cleared for DC, she will go home via private transport, plan is home, self care.
== END 2024-07-15 11:25 | disposition home or self-care (01) | DRG 720 ==
LOC: HO.ED 12:19 → HO.EDOVER 16:17 → HO.IMC 18:12
PROVIDERS: Physician Assistant Medical; Admitting Provider Internal Medicine; Emergency Provider Emergency Medicine; PCP Family Medicine; Visit Provider Internal Medicine
DX: A41.9 Sepsis, unspecified organism (principal); U07.1 COVID-19; K76.0 Fatty (change of) liver, not elsewhere classified; N13.6 Pyonephrosis; E66.9 Obesity, unspecified; Z68.33 Body mass index [BMI] 33.0-33.9, adult; J45.40 Moderate persistent asthma, uncomplicated; B96.20 Unspecified Escherichia coli [E. coli] as the cause of diseases classified elsewhere; F17.210 Nicotine dependence, cigarettes, uncomplicated; Z23 Encounter for immunization; Z71.6 Tobacco abuse counseling; Z79.51 Long term (current) use of inhaled steroids; Z79.899 Other long term (current) drug therapy
CPT/HCPCS: 0241U; 36415; 71046; 74176; 80048; 80053; 81001; 81003; 81025; 82248; 84702; 85025; 85027; 87086; 87088; 87186; 90656; 99285; J0696; J1650; J1885

== ENCOUNTER → 2024-07-13 16:12 | Outpatient (BNV) | payer MEDICAID, SELFPAY | PROVIDERS: Admitting Provider Internal Medicine; Emergency Provider Emergency Medicine; PCP Family Medicine; Visit Provider Internal Medicine | DX: N39.0 Urinary tract infection, site not specified (principal) | CPT/HCPCS: 99223; 99232; 99239 ==

== ENCOUNTER → 2024-07-13 16:12 | Outpatient (BNV) | payer MEDICAID, SELFPAY | PROVIDERS: Admitting Provider Internal Medicine; Emergency Provider Emergency Medicine; PCP Family Medicine; Visit Provider Urology | DX: N12 Tubulo-interstitial nephritis, not specified as acute or chronic (principal) | CPT/HCPCS: 99222 ==

== ENCOUNTER 2024-11-11 17:35 | Emergency (ER) | payer MEDICAID, SELFPAY ==
[2024-11-11 17:50] VITALS: BP 134/76; PULSE 83; RESP 18; TEMP 37.3; O2SAT 100; BMI 35.1
--- NOTE | 2024-11-11 17:53 | ED.GENADULT ---
HPI - General Adult General Chief complaint: Abdominal Pain Stated complaint: Abdominal pain Time Seen by Provider: 11/11/24 20:13 Source: patient Mode of arrival: ambulatory Limitations: no limitations History of Present Illness ED Provider: Amaya Vences NP HPI narrative: Patient is a 34-year-old female who presents emergency department for evaluation. She reports that she has been having lower abdominal cramping today with 3 episodes of diarrhea described as soft stools with some watery liquid. She states at 1 point she passed what she believes to be a parasite it was long stringy and brownish in color. She has not previously notices. She does not believe was anything she had eaten. She denies any recent sick contacts, travel, going out to eat or abnormal foods. No similar symptoms in family members. She does admit to having a mild rhinorrhea associated with this but had attributed this to recent weather changes. She denies associated fevers, chills, chest pain, shortness breath, difficulty breathing, upper abdominal pain, hematochezia, melena, genitourinary symptoms. Related Data Home Medications ?Medication ?Instructions ?Recorded ?Confirmed albuterol sulfate 90 mcg/actuation 2 puff inhalation Q4H PRN 07/13/24 07/13/24 aerosol inhaler shortness of breath or wheezing diphenhydramine HCl 50 mg capsule 50 mg PO Q4H PRN Runny Nose 07/13/24 07/13/24 (Banophen) mometasone 100 mcg/actuation HFA 1 puff inhalation BID PRN 07/13/24 07/13/24 aerosol inhaler (Asmanex HFA) Shortness Of Breath Or Wheezing Previous Rx's ?Medication ?Instructions ?Recorded fluticasone propionate 50 2 spray intranasal DAILY #9.9 mL 08/26/20 mcg/actuation nasal spray,suspension (Flonase Allergy Relief) levofloxacin 500 mg tablet 500 mg PO DAILY #7 tabs 07/15/24 Allergies Allergy/AdvReac Type Severity Reaction Status Date / Time SEAFOOD Allergy Severe ANAPHYLAXIS Uncoded 11/11/24 17:52 sea food Allergy Unknown anaphylaxis Uncoded 11/11/24 17:52 Review of Systems Review of Systems: Yes all other systems are reviewed and are negative PMFSH Past Medical History Attestation statement: The following information was validated with the patient. Source: old records reviewed Medical History Asthma Social History Social History Household Members: Friend(s) Alcohol intake: current Alcohol intake frequency: holidays/special occasions only Comment: patient safe to ambulate in room Patient Tobacco Use Status: Current everyday Tobacco user Tobacco use type: Cigarette Cigarette Packs Per Day: 0.25 Cigarettes Per Day: 5.0 Advance Directives: No Advance Directives Information Provided: No service: No Physical Exam ED Vital Signs: Vital Signs - 24 hr 11/11/24 17:50 11/11/24 20:09 Temperature 99.1 F 98.5 F Pulse Rate 83 68 Respiratory Rate 18 16 Blood Pressure 134/76 140/87 H Pulse Oximetry 100 98 Oxygen Delivery Method Room Air Room Air BMI result Body Mass Index 35.1 Appearance: Alert.?Oriented to person, place and time. No acute distress.?Normal affect. Eyes: Pupils equal, round and reactive to light.? ENT: Pharynx normal.?? Neck: Normal inspection.? Neck supple.?? CVS: Heart sounds normal. Normal heart rate and rhythm.? Pulses normal.?? Respiratory: No respiratory distress.? Lung sounds clear to auscultation bilaterally?? Abdomen: Soft and non-tender. Normoactive bowel sounds. Skin: Skin warm and dry.? Normal skin color.? ? Extremities: No lower extremity edema. Neuro: Moves all extremities spontaneously. Sensation intact bilaterally. . Ambulates with normal steady gait. Course Course Course Narrative: This is a rapid medical exam performed by Kait Patel PA-C. The patient is a 34-year-old female who presents with lower abdominal cramping and diarrhea that began today. Patient was had 3 episodes of loose stool. She is very concerned, she states she saw a ?parasite?, in the toilet after she had a bowel movement. She describes it as a ?long brown unknown pill?. No one else has same symptoms in the home. No recent travel, use of antibiotics or hospitalization. On exam her abdomen is soft, nontender nondistended no guarding. Plan to screen basic labs and obtain an ova and parasite. Patient is stable and can return to the waiting room pending her full medical assessment. Medical Decision Making Medical Decision Making [facility] Narrative: Patient is a 34-year-old female presents emergency department for evaluation of lower abdominal cramping and acute diarrheal illness as per HPI. Overall she is well-appearing, nontoxic, afebrile. She is without tachycardia tachypnea or hypoxia. She had a single episode of diarrhea while in the emergency department, denies any concern for. Parasites within this episode... States she was able to provide to nursing staff a stool sample to send down to the lab, advised patient that these results will not come back today. She also had serum labs obtained prior to my assumption of care which reveals a CBC without leukocytosis, a microcytic anemia consistent with baseline, no thrombocytopenia. No significant electrolyte derangement. No KATINA. LFTs are unremarkable. UCG is negative. She declines providing a urinalysis sample, no symptoms, feel this is okay to defer at this time. Viral serologies were sent for COVID-19/RSV/influenza and were pending at the time of discharge. She ultimately is requesting to be discharged at this time, she has with her younger autistic sudden who is very anxious to leave, I feel this is reasonable. I have a low suspicion for any acute intra abdominal pathology/surgical abdomen. Reviewed with patient, may potentially be a gastrointestinal illness, secondary to food-borne illness or viral etiology. Advised clear liquids tonight, followed by a bland diet, outpatient follow-up with primary care doctor. Discussed strict return precautions. All questions answered. Stable for discharge. Differential Diagnosis Differential Diagnoses: The differential diagnosis associated with the presentation includes (See narrative above) Admission/Observation Consideration of admission/observation: Escalation of care including admission/observation considered (See narrative above) Lab Data [facility] Lab Attestation statement: I reviewed the patient's lab results. (See narrative above) 11/11/24 18:01 11/11/24 18:01 Labs: Lab Results 11/11/24 Range/Units 18:01 WBC 10.5 (4.8-10.8) X10*3/uL RBC 4.39 (4.20-5.50) X10*6/uL Hgb 9.3 L (12.0-16.0) g/dl Hct 30.7 L (37.0-47.0) % MCV 69.9 L (80.0-98.0) fL MCH 21.2 L (27.0-33.0) pg MCHC 30.3 L (31.0-35.0) g/dl RDW 18.6 H (11.0-16.0) % Plt Count 398 D (160-400) X10*3/uL MPV 9.8 (9.4-12.3) fL Immature Gran % (Auto) 0.3 (0.0-0.4) % Neut % (Auto) 59.3 (45-73) % Lymph % (Auto) 29.6 (20-40) % [place] % (Auto) 7.3 (2-11) % Eos % (Auto) 3.0 (0-4) % Baso % (Auto) 0.5 (0-2) % Lymph # (Auto) 3.1 (1.2-4.9) X10*3/uL [place] # (Auto) 0.8 (0.1-1.2) X10*3/uL Eos # (Auto) 0.3 (0.0-0.4) X10*3/uL Baso # (Auto) 0.1 (0.0-0.2) X10*3/uL Abs Immat Gran (auto) 0.03 (0.00-0.03) X10*3/uL Absolute Neuts (auto) 6.2 (2.0-8.3) x10*3/uL Absolute Nucleated RBC 0.000 (0.0-0.012) X10*3/uL Nucleated RBC % (auto) 0.0 (0.0-0.2) /100WBC Sodium 140 (135-145) mmol/L Potassium 3.7 (3.3-5.1) mmol/L Chloride 112 H (96-108) mmol/L Carbon Dioxide 22 (22-29) mmol/L Anion Gap 10 L (12-20) BUN 13 (9-16) mg/dL Creatinine 0.82 (0.5-1.4) mg/dL Estim Creat Clear Calc 101.7 Estimated GFR > 60 Random Glucose 88 (60-115) mg/dL Calcium 9.1 D (8.4-10.2) mg/dL Magnesium 1.9 (1.6-2.6) mg/dL Total Bilirubin 0.4 (0.0-1.0) mg/dL AST 14 (5-31) U/L ALT 14 (0-31) U/L Alkaline Phosphatase 55 (39-117) U/L Total Protein 6.9 (6.5-8.0) g/dL Albumin 4.0 (3.5-5.0) g/dL Lipase 18 (8-78) U/L Beta HCG, Quant < 2 mIU/mL External Record Review External record reviewed: Outpatient record Discharge Plan Discharge Clinical Impression: Diarrhea Patient Disposition: Home, Self-Care Instructions: Acute Diarrhea (ED) Additional Instructions: As discussed, should the testing results from your stool sample result as positive you will receive a call back from the hospital. You will not receive a call with negative testing results. Consume clear liquids throughout tonight, followed by a bland diet tomorrow. Introduce a bland diet including crackers, bananas, rice, soup, toast, and boiled vegetables. This may progress to plain baked or boiled chicken or turkey. Avoid dairy products or foods high in fat or grease. You may return to emergency department any new or worsening symptoms or concerns. Follow-up with your primary care doctor with any persistent symptoms. Prescriptions: No Action fluticasone propionate [Flonase Allergy Relief] 50 mcg/actuation spray,suspension 2 spray intranasal DAILY Qty: 9.9 0RF Rx Instructions: administer into each nostril diphenhydramine HCl [Banophen] 50 mg capsule 50 mg PO Q4H PRN (Reason: Runny Nose) Asmanex HFA 100 mcg/actuation HFA aerosol inhaler 1 puff INHALATION BID PRN (Reason: Shortness Of Breath Or Wheezing) albuterol sulfate 90 mcg/actuation HFA aerosol inhaler 2 puff inhalation Q4H PRN (Reason: shortness of breath or wheezing) levofloxacin 500 mg tablet 500 mg PO DAILY Qty: 7 0RF Referrals: Karolyn Kramer DO [Primary Care Provider] - Print Language: Irish
[2024-11-11 18:13] LABS: MANUAL DIFF FLAG NO
[2024-11-11 18:33] LABS: Basophils Absolute Auto 0.1 X10*3/uL (0.0-0.2); Basophils Percent Auto 0.5 % (0-2); Eosinophils Absolute Auto 0.3 X10*3/uL (0.0-0.4); Hematocrit 30.7 % (37.0-47.0); Hemoglobin 9.3 g/dl (12.0-16.0); Imm Gran Abs Auto 0.03 X10*3/uL (0.00-0.03); Imm Gran Pct Auto 0.3 % (0.0-0.4); Lymphocytes Absolute Auto 3.1 X10*3/uL (1.2-4.9); Lymphocytes Percent Auto 29.6 % (20-40); Mean Corpuscular HGB Conc 30.3 g/dl (31.0-35.0); Mean Corpuscular Hemoglobin 21.2 pg (27.0-33.0); Mean Corpuscular Volume 69.9 fL (80.0-98.0); Mean Platelet Volume 9.8 fL (9.4-12.3); Monocytes Absolute Auto 0.8 X10*3/uL (0.1-1.2); Monocytes Percent Auto 7.3 % (2-11); Neutrophils Absolute Auto 6.2 x10*3/uL (2.0-8.3); Neutrophils Percent Auto 59.3 % (45-73); Platelet Count 398 X10*3/uL (160-400); Red Blood Count 4.39 X10*6/uL (4.20-5.50); Red Cell Distribution Width 18.6 % (11.0-16.0); White Blood Count 10.5 X10*3/uL (4.8-10.8)
[2024-11-11 18:36] LABS: Anion Gap 10 (12-20); Blood Urea Nitrogen 13 mg/dL (9-16); Calcium 9.1 mg/dL (8.4-10.2); Carbon Dioxide 22 mmol/L (22-29); Chloride 112 mmol/L (96-108); Creatinine Clr Calc Pharmacy 101.7; Estimated Glomerular Filt Rate > 60; Glucose Random 88 mg/dL (60-115); Magnesium 1.9 mg/dL (1.6-2.6); Potassium 3.7 mmol/L (3.3-5.1); Sodium 140 mmol/L (135-145)
[2024-11-11 18:37] LABS: Alanine Aminotransferase 14 U/L (0-31); Alkaline Phosphatase 55 U/L (39-117); Aspartate Amino Transferase 14 U/L (5-31); Lipase 18 U/L (8-78); Total Protein 6.9 g/dL (6.5-8.0)
[2024-11-11 19:01] LABS: Bilirubin Total 0.4 mg/dL (0.0-1.0)
[2024-11-11 19:06] LABS: HCG Quantitative < 2 mIU/mL
--- NOTE | 2024-11-11 20:07 | PC.NURSE ---
Patient presents from home with lower abdominal cramping and back pain with assoc diarrhea. Patient noted what she believes is a parasite in her diarrhea. Abdomen soft with positive bowel sounds. states once abdominal cramping starts needs to have a BM
[2024-11-11 20:09] VITALS: BP 140/87; PULSE 68; RESP 16; TEMP 36.9; O2SAT 98
[2024-11-11 21:10] VITALS: BP 139/78; PULSE 79; RESP 16; TEMP 36.8; O2SAT 97
[2024-11-11 21:10] LABS: Influenza A PCR NEGATIVE (Negative); Influenza B PCR NEGATIVE (Negative); Resp Syncy Virus RNA Qual PCR NEGATIVE (Negative); SARS COV2 PCR INHOUSE NEGATIVE (Negative)
== END 2024-11-11 21:11 | disposition home or self-care (01) ==
PROVIDERS: Nurse Practitioner Family; Physician Assistant Medical; Emergency Provider Emergency Medicine Emergency Medical Services; PCP Family Medicine
DX: R19.7 Diarrhea, unspecified (principal); R10.30 Lower abdominal pain, unspecified; Z79.899 Other long term (current) drug therapy; Z03.818 Encounter for observation for suspected exposure to other biological agents ruled out
CPT/HCPCS: 0241U; 80053; 83690; 83735; 84702; 85025; 87177; 87209; 99283; 99284

== ENCOUNTER 2025-04-01 16:42 | Emergency (ER) | payer MEDICAID, SELFPAY ==
--- NOTE | ~2025-04-01 | XR_ITS ---
EXAMINATION: XR CHEST CLINICAL INFORMATION: cough and dyspnea COMPARISON: Chest 07/13/2024 TECHNIQUE: 2 views of the chest were obtained. FINDINGS: No significant abnormality is noted involving the heart, lungs, mediastinum, bony thorax or soft tissues. XR/XR chest 2V IMPRESSION: Unremarkable chest examination. Electronically signed by: Collin Owen MD 04/01/2025 04:56 PM EDT RP
[2025-04-01 16:45] VITALS: BP 161/87; PULSE 84; RESP 16; TEMP 36.6; O2SAT 98; BMI 34.0
--- NOTE | 2025-04-01 16:45 | ED_ITS ---
HPI - General Adult General Chief complaint: Dyspnea Stated complaint: asthma Time Seen by Provider: 04/01/25 19:27 Source: patient, RN notes reviewed and old records reviewed Mode of arrival: ambulatory Limitations: no limitations History of Present Illness ED Provider: Trina HPI narrative: Patient is a 35-year-old female with reported history of asthma presenting with several days of shortness of breath, worse since 4am today. Denies fevers. Cough occasionally. Does not have any inhalers or nebulizer at home. Related Data Home Medications ?Medication ?Instructions ?Recorded ?Confirmed albuterol sulfate 90 mcg/actuation 2 puff inhalation Q 4H PRN 07/13/24 07/13/24 aerosol inhaler shortness of breath or wheez ing diphenhydramine HCl 50 mg capsule 50 mg PO Q4H PRN Run [place] Nose 07/13/24 07/13/24 (Banophen) mometasone 100 mcg/actuation HFA 1 puff inhalation BID PRN 07/13/24 07/13/24 aerosol inhaler (Asmanex HFA) Shortness Of Breath Or W heezing Previous Rx's ?Medication ?Instructions ?Recorded fluticasone propionate 50 2 spray intranasal DAILY #9. 9 mL 08/26/20 mcg/actuation nasal spray,suspension (Flonase Allergy Relief) levofloxacin 500 mg tablet 500 mg PO DAILY #7 tabs albuterol sulfate 90 mcg/actuation 2 puff inhalation Q 4-6H PRN 04/01/25 aerosol inhaler (Ventolin HFA) shortness of breath or wheezing #6.7 grams montelukast 10 mg tablet 10 mg PO DAILY #7 tabs 04/01 (Singulair) prednisone 20 mg tablet 20 mg PO DAILY #5 tabs 04/01 Allergies Allergy/AdvReac Type Severity Reaction Status Date / Time SEAFOOD Allergy Severe ANAPHYLAXIS Uncoded 04/01/25 16:46 sea food Allergy Unknown anaphylaxis Uncoded 04/01/25 16:46 Review of Systems Review of Systems: as per hpi Yes all other systems are reviewed and are negative Constitutional: Constitutional: Reports as per HPI PMFSH Past Medical History Medical History Asthma Social History Social History Household Members: Friend(s) Alcohol intake: current Alcohol intake frequency: holidays/special occasions only Comment: patient safe to ambulate in room Patient Tobacco Use Status: Current everyday Tobacco user Tobacco use type: Cigarette Cigarette Packs Per Day: 0.25 Cigarettes Per Day: 5.0 Advance Directives: No Advance Directives Information Provided: No Do you have a plan to hurt others: No Plan service: No Physical Exam ED Vital Signs: Vital Signs - 24 hr 04/01/25 16:45 04/01/25 19:30 Temperature 97.8 F 97.9 F Pulse Rate 84 75 Respiratory Rate 16 18 Blood Pressure 161/87 H 158/93 H Pulse Oximetry 98 98 Oxygen Delivery Method Room Air Room Air BMI result Body Mass Index 34.0 Vital signs have been reviewed and appear to be correct. Blood pressure normal. Heart rate normal. Respiratory rate normal. Temperature normal. Oxygen saturation normal. Const General: cooperative, healthy appearing and no acute distress Orientation/consciousness: oriented to person, oriented to place, oriented to time and patient oriented x3 Limitations: no limitations HENMT Head: Yes normocephalic and Yes atraumatic Ears: external ears normal General nose exam: Normal external nose present Face and sinus: Yes face symmetric Mouth: oropharynx normal and moist mucous membranes Throat: Yes uvula midline Eyes Pupils: Equal, round and reactive pupils present Neck Neck: Yes normal visual inspection and Yes supple Resp Effort & Inspection: normal respiratory effort and able to speak in complete sentences Auscultation: wheezes expiratory wheezes (mild, throughout) Cardio Rate: regular rate Rhythm: regular rhythm Heart sounds: S1 normal heart sound present and S2 normal heart sound present GI Palpation (GI): Soft to palpation and nontender Auscultation: normoactive bowel sounds General: Yes no CVA tenderness Back/Spine/Pelvis Back: no CVA tenderness Skin General skin exam: elasticity normal and turgor normal Neuro General: oriented to person, oriented to place, oriented to time, patient oriented x3, moves all extremities, no focal motor deficits and CN's II-XI intact bilaterally Cranial nerves: Yes Equal, round and reactive pupils present Cognition (Neuro): normal cognition Extrem General: Yes full ROM, Yes no pedal edema and Yes no calf tenderness Psych Mental Status: mental status grossly normal Affect: normal affect Thought process: Normal thought process present Course Course Course Narrative: This is a rapid medical exam performed by Zelalem Mena NP: Additional HPI, ROS, PE not included below will be deferred to primary provider. Patient is a 35-year-old female with reported history of asthma presenting with several days of shortness of breath, worse since 4am today. Denies fevers. Cough occasionally. Does not have any inhalers or nebulizer at home. Plan: viral serology, CXR Medical Decision Making Medical Decision Making [facility] Narrative: Patient is a 35-year-old female with reported history of asthma presenting with several days of shortness of breath, worse since 4am today. Denies fevers. Cough occasionally productive of green sputum. Does not have any inhalers or nebulizer at home. On exam patient is awake, A+Ox3, VS WNL, afebrile, normal neurological exam without focal deficits, physical exam findings as above. Given reported symptoms and physical exam findings, initial differential includes but is not limited to asthma exacerbation, viral illness,, flu, RSV, bronchitis, pneumonia. X-ray chest notable for no evidence of pneumonia. My interpretation is in agreement with the radiologist's interpretation. Results discussed with patient and all questions answered. Will treat with course of prednisone, albuterol inhaler, patient specifically requesting prescription for prednisone. Return precautions discussed. Patient verbalized understanding of and agreement with plan. Differential Diagnosis Differential Diagnoses: The differential diagnosis associated with the presentation includes As per [facility] Admission/Observation Consideration of admission/observation: Escalation of care including admission/observation considered Patient would have been admitted to the hospital had their clinical presentation warranted hospital admission. Lab Data [facility] Lab Attestation statement: I reviewed the patient's lab results. as per [facility] Labs: Lab Results 04/01/25 Range/Units 16:57 Influenza Type A (PCR) NEGATIVE (Negative) Influenza Type B (PCR) NEGATIVE (Negative) RSV RNA Qual (PCR) NEGATIVE (Negative) SARS-CoV-2 RNA (RT-PCR) NEGATIVE (Negative) Independent Interpretation I performed an independent interpretation of an: Plain X-Ray Interpretation: No evidence of pneumonia on cxr Radiology Impression Discussion of test interpretation with radiology: I have reviewed the radiologist's reading. Radiologist Impression: XR/XR chest 2V IMPRESSION: Unremarkable chest examination. External Record Review External record reviewed: Inpatient record, Office record and Outpatient record Prescription Management I considered prescription management with: Other Discharge Plan Discharge Clinical Impression: Asthma exacerbation Qualifiers: Asthma severity: mild Asthma persistence: unspecified Qualified Code(s): J45.901 - Unspecified asthma with (acute) exacerbation Patient Disposition: Home, Self-Care Instructions: Asthma (DC) Additional Instructions: You were evaluated in the emergency department today for cough, wheezing and shortness of breath. You are being treated for an asthma exacerbation with a short course of steroids to decrease inflammation. You are being prescribed an inhaler which you can use every 4-6 hours as needed for shortness of breath. You are also being prescribed singulair. Take all medications as prescribed. Please follow-up with your primary care provider this week. Return to the emergency department if you develop worsening shortness of breath, difficulty breathing, chest pain, fever not improved with Tylenol or ibuprofen, or any other concerning symptoms. Prescriptions: New montelukast [Singulair] 10 mg tablet 10 mg PO DAILY Qty: 7 0RF prednisone 20 mg tablet 20 mg PO DAILY Qty: 5 0RF albuterol sulfate [Ventolin HFA] 90 mcg/actuation HFA aerosol inhaler 2 puff inhalation Q4-6H PRN (Reason: shortness of breath or wheezing) Qty: 6.7 0RF No Action fluticasone propionate [Flonase Allergy Relief] 50 mcg/actuation spray,suspension 2 spray intranasal DAILY Qty: 9.9 0RF Rx Instructions: administer into each nostril diphenhydramine HCl [Banophen] 50 mg capsule 50 mg PO Q4H PRN (Reason: Runny Nose) Asmanex HFA 100 mcg/actuation HFA aerosol inhaler 1 puff INHALATION BID PRN (Reason: Shortness Of Breath Or Wheezing) albuterol sulfate 90 mcg/actuation HFA aerosol inhaler 2 puff inhalation Q4H PRN (Reason: shortness of breath or wheezing) levofloxacin 500 mg tablet 500 mg PO DAILY Qty: 7 0RF Interventions: ED Discharge Assessment Last Done: 04/01/25 19:45 Print Language: Telugu
[2025-04-01 18:03] LABS: Resp Syncy Virus RNA Qual PCR NEGATIVE (Negative); SARS COV2 PCR INHOUSE NEGATIVE (Negative)
[2025-04-01 19:30] VITALS: BP 158/93; PULSE 75; RESP 18; TEMP 36.6; O2SAT 98
[2025-04-01 19:45] VITALS: BP 158/93; PULSE 75; RESP 18; TEMP 36.6; O2SAT 98
== END 2025-04-01 19:46 | disposition home or self-care (01) ==
PROVIDERS: Registered Nurse Emergency; Emergency Provider Emergency Medicine Emergency Medical Services; PCP Family Medicine
DX: J45.901 Unspecified asthma with (acute) exacerbation (principal); R06.02 Shortness of breath; R05.9 Cough, unspecified; Z79.899 Other long term (current) drug therapy; Z03.818 Encounter for observation for suspected exposure to other biological agents ruled out; F17.210 Nicotine dependence, cigarettes, uncomplicated
CPT/HCPCS: 71046; 87637; 99283; 99284

== ENCOUNTER → 2025-04-01 16:46 | Outpatient (BNV) | payer MEDICAID, SELFPAY | PROVIDERS: PCP Family Medicine; Visit Provider Radiology Diagnostic Radiology | DX: R06.00 Dyspnea, unspecified (principal) | CPT/HCPCS: 71046 ==

== ENCOUNTER 2025-05-13 10:42 | Emergency (ER) | payer MEDICAID, SELFPAY ==
[2025-05-13 10:55] VITALS: BP 108/72; BP 121/57; PULSE 79; PULSE 84; RESP 17; TEMP 36.7; O2SAT 100; O2SAT 98; BMI 34.2
[2025-05-13 10:59] VITALS: BP 121/57; PULSE 79; RESP 17; TEMP 36.7; O2SAT 98
--- NOTE | 2025-05-13 11:11 | ED.GENADULT ---
HPI - General Adult General Chief complaint: Dyspnea Stated complaint: SOB,RAN OUT OF INH,WHEEZY THROUGHOUT,DUONEB NOW Time Seen by Provider: 05/13/25 11:11 History of Present Illness ED Provider: Melissa YO narrative: The patient is a 35-year-old female with a history of asthma. She says that she has just finished a course of prednisone that has been prescribed by her PCP (at the [facility]) 5 days ago last Sunday. She says that very soon after finishing the prednisone she started to feel increasing shortness of breath. The patient also says that she has had some vaginal spotting over the last 2 days and in fact missed an appointment for a Pap smear at the [facility] yesterday. She says she is trying to get but she would be surprised if she is because she has a normal menses 3 weeks ago. She is not on any control Nexplanon, she does not have an IUD or any other kind of control. She has 4 children. The patient has not had a fever. She has had a dry cough. No sputum production. She is a smoker. No abdominal pain. The patient says that she came to the hospital by ambulance today from her father's apartment. Related Data Home Medications ?Medication ?Instructions ?Recorded ?Confirmed albuterol sulfate 90 mcg/actuation 2 puff inhalation Q4H PRN 07/13/24 07/13/24 aerosol inhaler shortness of breath or wheezing diphenhydramine HCl 50 mg capsule 50 mg PO Q4H PRN Runny Nose 07/13/24 07/13/24 (Banophen) mometasone 100 mcg/actuation HFA 1 puff inhalation BID PRN 07/13/24 07/13/24 aerosol inhaler (Asmanex HFA) Shortness Of Breath Or Wheezing Previous Rx's ?Medication ?Instructions ?Recorded fluticasone propionate 50 2 spray intranasal DAILY #9.9 mL 08/26/20 mcg/actuation nasal spray,suspension (Flonase Allergy Relief) levofloxacin 500 mg tablet 500 mg PO DAILY #7 tabs 07/15/24 albuterol sulfate 90 mcg/actuation 2 puff inhalation Q4-6H PRN 04/01/25 aerosol inhaler (Ventolin HFA) shortness of breath or wheezing #6.7 grams montelukast 10 mg tablet 10 mg PO DAILY #7 tabs 04/01/25 (Singulair) prednisone 20 mg tablet 20 mg PO DAILY #5 tabs 04/01/25 budesonide-formoterol HFA 160 2 puff inhalation BID #10.2 grams 05/13/25 mcg-4.5 mcg/actuation aerosol inhaler prednisone 20 mg tablet 20 mg PO DAILY #12 tabs 05/13/25 Allergies Allergy/AdvReac Type Severity Reaction Status Date / Time SEAFOOD Allergy Severe ANAPHYLAXIS Uncoded 05/13/25 10:58 sea food Allergy Unknown anaphylaxis Uncoded 05/13/25 10:58 Review of Systems Review of Systems: Yes all other systems are reviewed and are negative PMFSH Past Medical History Medical History Asthma Social History Social History Household Members: Friend(s) Alcohol intake: current Alcohol intake frequency: holidays/special occasions only Comment: patient safe to ambulate in room Patient Tobacco Use Status: Current everyday Tobacco user Tobacco use type: Cigarette Cigarette Packs Per Day: 0.25 Cigarettes Per Day: 5.0 Smoked in Last 30 Days: Yes Use of substances other than those prescribed or required for medical reasons: No Advance Directives: No Advance Directives Information Provided: Yes Do you have a plan to hurt others: No Plan Patient : No (Pt unsure, suspects miscarriage) service: No Physical Exam ED Vital Signs: Vital Signs - 24 hr 05/13/25 10:55 05/13/25 10:59 05/13/25 11:35 Temperature 98.0 F 98.0 F Pulse Rate 79 79 87 Respiratory Rate 17 17 15 Blood Pressure 121/57 L 121/57 L Pulse Oximetry 98 98 Oxygen Delivery Method Room Air Room Air 05/13/25 13:06 Temperature 98 F Pulse Rate 87 Respiratory Rate 15 Blood Pressure 121/57 L Pulse Oximetry 95 Oxygen Delivery Method Room Air BMI result Body Mass Index 34.2 Const Other: The patient is awake, alert, pleasant, cooperative. She does not appear in overt distress. She does not appear obviously short of breath. Orientation/consciousness: patient oriented x3 HENMT Other: The face is symmetrical. ?Mucous membranes moist. Eyes Other: Pupils are round equal, conjunctivae are clear, extraocular movements intact Neck Neck: Yes normal visual inspection and Yes full ROM Resp Other: No increased work of breathing. There are scattered wheezes bilaterally and symmetrically. Cardio Rate: regular rate Rhythm: regular rhythm Heart sounds: S1 normal heart sound present and S2 normal heart sound present GI Other: Abdomen is soft and nontender Skin Other: The skin is dry and unremarkable Neuro General: patient oriented x3, tone normal, moves all extremities, no focal motor deficits and CN's II-XI intact bilaterally Extrem Other: There is no calf swelling or tenderness. No asymmetry. No peripheral edema. Medications Administered Discontinued Medications Generic Name Dose Route Start Last Admin Trade Name Freq PRN Reason Stop Dose Admin Albuterol/Ipratropium 3 ml 05/13/25 11:16 05/13/25 11:31 Albuterol/Iprat 2.5/0.5mg 3 Ml Ampul.Neb INHALE 05/13/25 11:17 3 ml ONCE ONE Administration Prednisone 60 mg 05/13/25 12:52 05/13/25 13:01 Prednisone 20 Mg Tablet PO 05/13/25 12:53 60 mg ONCE ONE Administration Medical Decision Making Medical Decision Making MDM Narrative: The patient is a 35-year-old female with a history of asthma who comes to the emergency room by ambulance with 2 concerns. One concern is possible recurrence of an asthma exacerbation. Another concern is a question of . She describes having some vaginal spotting recently. The patient is a smoker who still smokes. She seemed to imply that one of the reasons she came to the hospital was because she has been out of her albuterol inhaler. The patient did not seem in overt distress. She was given a DuoNeb updraft treatment. test was negative. Overall I felt the patient was fairly stable. She will be started on a course of prednisone. I will send a prescription for budesonide-formoterol. She should follow up with her PCP. Lab Data Labs: Lab Results 05/13/25 05/13/25 Range/Units 11:32 12:17 Urine Test NEGATIVE (NEGATIVE) COVID-19 (HERON) Negative (Negative) COVID-19 Clin Com See Note Discharge Plan Discharge Clinical Impression: Asthma exacerbation Patient Disposition: Home, Self-Care Instructions: Asthma (ED), How to Use a Metered-Dose Inhaler and a Spacer (ED) Additional Instructions: I have sent a prescription for an inhaler to your pharmacy. This is a combination inhaler. It contains a bronchodilator medication as well as a steroid medication. You may use this inhaler the same way you would use an albuterol inhaler when you are feeling short of breath. You may use it as often as 2 puffs every 4 hours. Please use this medication with a spacer (AeroChamber). You have also been started on a course of prednisone. Please take this prednisone once a day, next dose tomorrow. Please contact your primary care doctor's office for a follow up appointment. Also, if you have plans to see a lung doctor (a service technician copier), please follow through with the seeing a service technician copier as well. Return to the emergency room if significantly worse. Prescriptions: New prednisone 20 mg tablet 20 mg PO DAILY Qty: 12 0RF Rx Instructions: Take 3 tablets by mouth daily for 2 days then take 2 tablets by mouth daily for 3 days. budesonide-formoterol 160-4.5 mcg/actuation HFA aerosol inhaler 2 puff inhalation BID Qty: 10.2 0RF No Action fluticasone propionate [Flonase Allergy Relief] 50 mcg/actuation spray,suspension 2 spray intranasal DAILY Qty: 9.9 0RF Rx Instructions: administer into each nostril diphenhydramine HCl [Banophen] 50 mg capsule 50 mg PO Q4H PRN (Reason: Runny Nose) Asmanex HFA 100 mcg/actuation HFA aerosol inhaler 1 puff INHALATION BID PRN (Reason: Shortness Of Breath Or Wheezing) albuterol sulfate 90 mcg/actuation HFA aerosol inhaler 2 puff inhalation Q4H PRN (Reason: shortness of breath or wheezing) levofloxacin 500 mg tablet 500 mg PO DAILY Qty: 7 0RF montelukast [Singulair] 10 mg tablet 10 mg PO DAILY Qty: 7 0RF prednisone 20 mg tablet 20 mg PO DAILY Qty: 5 0RF albuterol sulfate [Ventolin HFA] 90 mcg/actuation HFA aerosol inhaler 2 puff inhalation Q4-6H PRN (Reason: shortness of breath or wheezing) Qty: 6.7 0RF Interventions: ED Discharge Assessment Last Done: 05/13/25 13:06 Discharge Date/Time: 05/13/25 13:09 Print Language: Hebrew
[2025-05-13] MEDS: Albuterol/Iprat 2.5/0.5MG 3 ML AMPUL.NEB INHALE (11:31)
[2025-05-13 11:35] VITALS: PULSE 87; RESP 15; O2SAT 99
[2025-05-13 11:53] LABS: COVID-19 Test Negative (Negative); IDNOW Serial# 55D5AD1C
[2025-05-13 12:30] LABS: UPreg QC Valid YES
[2025-05-13 13:06] VITALS: BP 121/57; PULSE 87; RESP 15; TEMP 36.6; O2SAT 95
--- OUTSIDE RECORDS SUMMARY | 2025-05-13 14:32 | XMS_ITS | Encounter Summary ---
Author Organization [employer] Address [address] [place] [address] 7 [place] [address] Care Team Providers Care Tire Sorter Name Role Phone Karolyn Kramer DO Primary Care Provider + [phone] Karolyn Kramer DO Primary Care Provider + [phone] Reason for Visit * Reason Comments Med Refill Encounter Details Date Type Department Care Team (Late st Contact Info) Description 07/26/2022 Refill [facility] MEDICINE [address] [place], [place] [phone] Karolyn Kramer DO [address] [place], [place] [phone] Social History Tobacco Use Types Packs/Day Years Used Date Smoking Tobacco: Never Assessed Comments Unknown Sex and Gender Information Value Date Recorded Sex Assigned at Female 06/19/2022 10:14 AM EDT Legal Sex Female 10:14 AM EDT Gender Identity Female 06/19/2022 10:14 AM EDT Sexual Orientation Straight 06/19/2022 10 :14 AM EDT documented as of this encounter Plan of Treatment Not on file documented as of this encounter Visit Diagnoses Not on filedocumented in this encounter Care Teams Tire Sorter Relationship Specialty Start Date End Date Karolyn Kramer DO [address] [place], [place] [phone] PCP - General Family Medicine 08/20/18 06/14/23 Karolyn Kramer DO [address] [place] [address] [phone] PCP - General Family Medicine 08/24/23 April Hopson Manager InfrastructureMuseum Service Scheduler 09/03/24 documented as of this encounter
--- OUTSIDE RECORDS SUMMARY | 2025-05-13 14:32 | XMS_ITS | Encounter Summary ---
Author Organization [employer] Address [address] [place] [address] 7 [place] [address] Care Team Providers Care Periodicals Clerk Name Role Phone WilliamsKarolyn Primary Care Provider + [phone] Reason for Visit * Reason Onset Date Comments NTTS follow-up 05/11/2025 Encounter Details Date Type Department Care Team ([facility] st Contact Info) Description 05/11/2025 Telephone [facility] MEDICINE [address] [place], [place] [phone] Jennifer Rojo RN [address] [place], [place] [phone] NTTS follow-up Social History Tobacco Use Types Packs/Day Years Used Date Smoking Tobacco: Every Day Cigarettes Smokeless Tobacco: Never Depression Answer Date Recorded Patient Health Questionnaire-9 Score 17 05/11/2025 Patient Health Questionnaire-9 Score 17 05/11/2025 Last PHQ-9: Questionnaire Data Not on file 0 05/11/2025 Housing Stability Answer Date Recorded What is your housing situation today? I do not have housing (Staying with others, in a hotel, in a long term, living outside on the street, on a beach, in a car, or in a park 05/04/[address] you li ve. Do you have problems with any of the following? None of the above 05/04/2025 Food Insecurity Answer Date Recorded Within the past 12 months, y ou worried that your food would run out before you got money to buy more: Never True 05/04/2025 Within the past 12 months,th e food you bought just didn't last and you didn't have enough money to get more: Never True Transportation Answer Date Recorded In the past 12 months, has l ack of transportation kept you from medical appts, meetings, work or from getting things needed for daily living? No 05/04/2025 Utilities Answer Date Recorded In the past 12 months, has t he electric, gas, oil or water company threatened to shut off services in your home? No 05/04/2025 Depression Answer Date Recorded Patient Health Questionnaire-2 Score 6 05/11/2025 Internet Access Answer Date Recorded Internet Access Q1 Yes 07/16/2024 Internet Access Q2 Not on file 07/16/2024 Comments Unknown Sex and Gender Information Value Date Recorded Sex Assigned at Female 06/19/2022 10:14 AM EDT Legal Sex Female 10:14 AM EDT Gender Identity Female 06/19/2022 10:14 AM EDT Sexual Orientation Straight 06/19/2022 10 :14 AM EDT documented as of this encounter Functional Status * Over the past 2 weeks, how often have you been bothered by any of the following problems? Question Answer Date of Assessment Author Patient Health Questionnaire -2 Score 6 05/11/2025 12:47 PM EDT Dorothy Peralta V ictimani * Little interest or pleasure in doing things Answer Date of Assessment Author Nearly every day 05/11/2025 12:47 PM EDT Nila Puckett * Feeling down, depressed, or hopeless Answer Date of Assessment Author Nearly every day 05/11/2025 12:47 PM PLACIDOT Nila Puckett * Trouble falling or staying asleep, or sleeping too much Answer Date of Assessment Author More than half the days 05/11/2025 12:47 PM EDT Nila Beck * Feeling tired or having little energy Answer Date of Assessment Author More than half the days 05/11/2025 12:47 PM EDT Nila Beck * Poor appetite or overeating Answer Date of Assessment Author Several days 05/11/2025 12:47 PM EDT Nila Mart Ba * Feeling bad about yourself - or that you are a failure or have let yourself or your family down Answer Date of Assessment Author More than half the days 05/11/2025 12:47 PM EDT Nila Beck * Trouble concentrating on things, such as reading the newspaper or watching television Answer Date of Assessment Author Nearly every day 05/11/2025 12:47 PM EDT Nila Puckett * Moving or speaking so slowly that other people could have noticed? Or the opposite - being so fidgety or restless that you have been moving around a lot more than usual. Answer Date of Assessment Author Several days 05/11/2025 12:47 PM EDT Nila Mart Ba * Thoughts that you would be better off or hurting yourself in some way Answer Date of Assessment Author Not at all 05/11/2025 12:47 PM EDT Nila Mart Ba * Patient Health Questionnaire-9 Score Answer Date of Assessment Author 17 05/11/2025 12:47 PM PLACIDOT Nila Mart Ba * How difficult have these problems made it for you to do your work, take care of things at home, or get along with other people? Answer Date of Assessment Author Very difficult 05/11/2025 12:47 PM PLACIDOT Nila Mart Ba * Over the last 2 weeks, how often have you been bothered by any of the following problems? Question Answer Date of Assessment Author Feeling nervous, anxious, or on edge 3 05/11/2025 12:51 PM EDT Krysten Beck Not being able to stop or control worrying 3 05/11/2025 12:51 PM PLACIDOT Krysten Beck Worrying too much about different things 3 05/11/2025 12:51 PM Krysten Marsh Trouble relaxing 3 05/11/2025 12:51 PM Nila Marsh Being so restless that it is hard to sit still 2 05/11/2025 12:51 PM ROGELIO Peralta V ictoria Becoming easily annoyed or irritable 2 05/11/2025 12:51 PM EDT Krysten Beck Feeling afraid as if somethi ng awful might happen 3 05/11/2025 12:51 PM Krysten Marsh HARSH-7 Total Score 19 05/11/2025 12:51 PM EDT Nila Beck documented as of this encounter Miscellaneous Notes * Telephone Encounter - Jennifer Rojo RN - 05/11/2025 3:05 PM EDT NTTS report received, pt. Called yesterday 05/10/25 due to vaginal bleeding and cramping. Pt. Was advised to seem emergency care. TC placed to pt. For status check. Pt. Reports she is usually very regular with her menstrual cyclehowever had regular menstrual period beginning 04/24/25, then started bleeding again starting 05/06/25(Sunday). Reports Sunday it started as spotting, however by it was very heavy (soaked through underwear), then between Sunday and now it has gotten less and less every day, is not just spotting on TP when wiping. Pt. Reports cramping on one side. Pt. Reports she has never had menstrual periods this close together and is inquiring if significant stress could be the cause. Pt. Also reports she is very overdue for a PAP, when seeing Dahlia in 2022 reported PAP was approx 4 years prior and this is still true. Pt. Reports no h/p abnormal PAPs. Agrees to an appointment with AILYN Villagomez tomorrow 05/12/25 at 1:15pm. documented in this encounter Plan of Treatment Not on file documented as of this encounter Visit Diagnoses Not on filedocumented in this encounter Additional Health Concerns Assessment Noted Time PHQ-9 Depression Total Score: 17 025 12:47 PM EDT documented as of this encounter Care Teams Periodicals Clerk Relationship Specialty Start Date End Date Karolyn Kramer DO [address] [place] [address] PCP - General Family Medicine 08/24/23 April Hopson Installation TechManager Lean 09/03/24 documented as of this encounter
--- OUTSIDE RECORDS SUMMARY | 2025-05-13 14:32 | XMS_ITS | Encounter Summary ---
Author Organization [employer] Address [address] [facility] [address] [place] [address] Care Team Providers Care Staffing Director Name Role Phone Karolyn Kramer DO Primary Care Provider + [phone] Reason for Visit * Reason Comments Med Refill Encounter Details Date Type Department Care Team (Late st Contact Info) Description 08/08/2023 Refill [facility] [address] [place], [place] [phone] Gamaliel Jasso MD [address] [place] [address] Mild persistent asthma without complication Social History Tobacco Use Types Packs/Day Years Used Date Smoking Tobacco: Every Day Cigarettes Smokeless Tobacco: Never Depression Answer Date Recorded Patient Health Questionnaire-9 Score 19 07/23/2023 Patient Health Questionnaire-9 Score 19 07/23/2023 Last PHQ-9: Questionnaire Data Not on file 1 09/23/2022 Depression Answer Date Recorded Patient Health Questionnaire-2 Score 4 07/23/2023 Comments Unknown Sex and Gender Information Value Date Recorded Sex Assigned at Female 06/19/2022 10:14 AM EDT Legal Sex Female 10:14 AM EDT Gender Identity Female 06/19/2022 10:14 AM EDT Sexual Orientation Straight 06/19/2022 10 :14 AM EDT documented as of this encounter Plan of Treatment Not on file documented as of this encounter Visit Diagnoses Diagnosis Mild persistent asthma without complication documented in this encounter Additional Health Concerns Assessment Noted Time PHQ-9 Depression Total Score: 19 023 4:28 PM EST documented as of this encounter Care Teams Staffing Director Relationship Specialty Start Date End Date Karolyn Kramer DO [address] [place] [address] PCP - General Family Medicine 08/24/23 April Hopson Janitorial CleanerRehabilitation Construction Specialist 09/03/24 documented as of this encounter
--- OUTSIDE RECORDS SUMMARY | 2025-05-13 14:32 | XMS_ITS | Encounter Summary ---
Author Organization [employer] Address [address] [place] [address] [address] [place] [address] Care Team Providers Care Neurology Professor Name Role Phone KunalKarolyn gloria Primary Care Provider + [phone] Encounter Details Date Type Department Care Team (Late st Contact Info) Description 05/13/2025 Orders Only GENERIC EXTERNAL DATA DEPARTMENT Provider, Generic External Data Social History Tobacco Use Types Packs/Day Years [...] with others, in a hotel, in a skilled nursing, living outside on the street, on a [...] on file documented as of this encounter Procedures Procedure Name Priority Date/Time Associated Diagnosis Comments HCG, QL, URINE Routine 05/13/2025 12:17 PM EDT documented in this encounter Results * HCG, Qualitative, Urine (05/13/2025 12:17 PM EDT) Urine NEGATIVE NEGATIVE [facility] Comment:This test was develo ped to detect early . Falsenegative results may occur after the 5th - 7th week ofpregnancy when using this test method. If clinicallyindicated, consider a serum hCG. 05/13/2025 12:1 7 PM EDT 05/13/2025 12:21 PM EDT us Generic External Data Provider LAB URINE ORDERAB LES Final Result [facility] [address] [place] [phone] documented in this encounter Visit Diagnoses Not on filedocumented in this encounter Additional Health Concerns Assessment Noted Time PHQ-9 Depression Total Score: 17 025 12:47 PM EDT documented as of this encounter Care Teams Neurology Professor Relationship Specialty Start Date End Date Karolyn Kramer DO [address] [place] [address] PCP - General Family Medicine 08/24/23 April Hopson Manager Social WorkPesticide Applicator 09/03/24 documented as of this encounter
--- OUTSIDE RECORDS SUMMARY | 2025-05-13 14:32 | XMS_ITS | Encounter Summary ---
Author Organization [employer] Address [address] [facility] [address] [place] [address] Care Team Providers Care Design Editor Name Role Phone Karolyn Kramer DO Primary Care Provider + [phone] Reason for Visit * Reason Comments Med Refill Encounter Details Date Type Department Care Team (Late st Contact Info) Description 08/08/2023 Refill [facility] [address] [place] [phone] Gamaliel Jasso MD [address] [place] [address] Social History Tobacco Use Types Packs/Day Years [...] documented as of this encounter Care Teams Design Editor Relationship Specialty Start Date End Date Karolyn Kramer DO [address] [place] [address] PCP - General Family Medicine 08/24/23 April Hopson LoadersHotel Service Manager 09/03/24 documented as of this encounter
--- OUTSIDE RECORDS SUMMARY | 2025-05-13 14:32 | XMS_ITS | Clinical Summary ---
Author Organization [employer] Address [address] [place] [address] [address] [place] [address] Care Team Providers Care Aoc Plans Intelligence Officer Name Role Phone Karolyn Kramer Primary Care Provider [phone] Allergies Active Allergy Reactions Criticality Noted Date Comments Shellfish Allergy Anaphylaxis High 11/20/2022 Allergy Medications * This document contains information received from the source organization and may not represent a complete record from that organization. loratadine (Claritin) 10 MG tablet Take 1 tablet (10 mg) by mouth in the morning. 90 tablet 3 08/30/19 24 Active fluticasone (Flonase) 50 MCG/ACT nasal spray Administer 2 sprays into each nostril in the morning. Shake gently. Before first use, prime pump. After use, clean tip and replace cap. 16 g 11 08/30/19 24 Active albuterol (2.5 MG/3ML) 0.083% nebulizer solution INHALE 1 AMPULE USING A NEBULIZER EVERY 4 HOURS NEEDED FOR COUGH, WHEEZING, OR SHORTNESS OF BREATH 90 mL 1 08/30/19 24 Active sertraline (Zoloft) 25 MG tablet Take 1 tablet (25 mg) by mouth in the morning. 30 tablet 2 08/30/19 24 Active hydrOXYzine pamoate (Vistaril) 25 MG capsule Take 1 capsule (25 mg) by mouth every 6 (six) hours if needed for anxiety. 30 capsule 2 08/30/19 24 Active ergocalciferol (Vitamin D2) 1.25 MG (13781 UT) capsuleIndicati ons:Vitamin D deficiency Take 1 capsule (1.25 mg) by mouth 1 (one) time per week. 12 capsule 3 09/05/19 24 Active cyclobenzaprine (Flexeril) 10 MG tablet Take 1 tablet by mouth if needed in the morning, at noon, and at bedtime for muscle spasms. Active acetaminophen (Tylenol) 500 MG tablet Take 2 tablets by mouth every 6 (six) hours if needed for headaches. OTC Active Blood Pressure kitIndications: Elevated blood pressure reading in office without diagnosis of hypertension 1 each 2 times daily. 1 kit 12/20/19 25 026 Active albuterol (Ventolin HFA) 108 (90 Base) MCG/ACT inhalerIndicati ons:Mild persistent asthma without complication,Mo derate persistent asthma with acute exacerbation Inhale 2 puffs every 4 (four) hours if needed for wheezing. 18 g 05/04/20 25 Active fluticasone furoate (Arnuity Ellipta) 100 MCG/ACT inhalerIndicati ons:Moderate persistent asthma with acute exacerbation Inhale 1 puff Once per day. Rinse mouth with water after use to reduce aftertaste and incidence of candidiasis. Do not swallow. 1 each 05/04/20 25 026 Active ibuprofen 400 MG tabletIndicatio ns:Nonintractab le chronic migraine Take 1 tablet (400 mg) by mouth every 6 (six) hours if needed for moderate pain. 120 tablet 1 05/04/20 25 Active nicotine polacrilex (Nicorette) 4 MG gumIndications: Smoker CHEW 1 PIECE OF GUM EVERY 2 HOURS NEEDED FOR SMOKING CESSATION 100 each 05/05/20 25 Active Asmanex HFA 100 MCG/ACT aerosol INHALE 1 PUFF BY MOUTH TWICE DAILY, RINSE MOUTH AFTER USING. 13 g 05/07/20 24 025 Discontinued Ventolin HFA 108 (90 Base) MCG/ACT inhalerIndicati ons:Mild persistent asthma without complication INHALE 2 PUFFS BY MOUTH EVERY 4 HOURS NEEDED FOR WHEEZING OR SHORTNESS OF BREATH 18 g 05/07/20 24 025 Discontinued(R eorder (will not trigger notification to Pharmacy)) ibuprofen 400 MG tablet TAKE 1 TABLET BY MOUTH EVERY 6 HOURS NEEDED FOR MODERATE PAIN 120 tablet 1 03/12/20 25 025 Discontinued(R eorder (will not trigger notification to Pharmacy)) nicotine polacrilex (Nicorette) 4 MG gumIndications: Smoker Chew 1 each (4 mg) if needed for smoking cessation. 100 each 05/04/20 25 025 Discontinued predniSONE (Deltasone) 20 MG tabletIndicatio ns:Moderate persistent asthma with acute exacerbation Take 2 tablets (40 mg) by mouth Once per day for 5 days. 10 tablet 05/04/20 25 025 Hospital, Clinic, or Other Facility Administered Medication Ordered Dose Route Frequency Start Date End Date Status ipratropium-albuterol (Duo-Neb) 0.5-2.5 mg/3 mL nebulizer solution 3 mgIndications:Moderate persistent asthma with acute exacerbation 3 mg NEBULIZATION Once 05/04/2025 Acti ve Active Problems Problem Noted Date Diagnosed Date HARSH (generalized anxiety disorder) 05/07/2025 Other social stressor 05/07/2025 Encounter for preventive care 05/04/2025 Assessment & Plan (05/04/2025 9:54 AM EDT): See HPI Smoker 05/04/2025 Assessment & Plan (05/04/2025 9:56 AM EDT): Counseling done Refilled of nicotine gum done Routine screening for STI (sexually transmitted infection) 11/16/2023 Assessment & Plan (11/16/2023 11:41 AM EDT): Pt is on day 4 Amoxicillin for sore throat. Will order STI testing and will treat presumptively because high risk of false negative. Acute pharyngitis 11/16/2023 Assessment & Plan (11/16/2023 11:27 AM EDT): -No evidence of respiratory distress. Symptoms mild. -No evidence of dehydration. -Supportive care advised. -Isolation recommendations discussed. -ER precautions discussed. -Seek medical attention for worsening symptoms Vaginal candidiasis 11/16/2023 Assessment & Plan (11/16/2023 11:37 AM EDT): - Start Clotrimazole 1% vaginal cream x 7 days. Family planning 11/16/2023 Overview (11/16/2023): Pt reported unprotected sexual intercourse four days ago. Her menses is supposed to start at the beginning of the month and patient is unsure if she is . test today was - She will get a plan B today and agrees to come back for Nexplanon. Assessment & Plan (11/16/2023 11:39 AM EDT): Pt reported unprotected sexual intercourse four days ago. Her menses is supposed to start at the beginning of the month and patient is unsure if she is . test today was - She will get a plan B today and agrees to come back for Nexplanon. Myopia of both eyes 10/25/2023 BMI 32.0-32.9,adult 10/25/2023 Vitamin D deficiency 10/25/2023 Dyslipidemia 10/25/2023 Chronic allergic rhinitis 08/30/2023 Chronic migraine 08/30/2023 Assessment & Plan (05/04/2025 9:54 AM EDT): Refill for ibuprofen done today Major depression, recurrent, chronic 07/23/2023 Assessment & Plan (05/04/2025 9:57 AM EDT): Patient has an appointment with N I advise not to miss it Anxiety 07/23/2023 PTSD (post-traumatic stress disorder) 07/23/2023 Tobacco dependence 06/27/2023 Moderate persistent asthma with acute exacerbati on 06/27/2023 Assessment & Plan (05/04/2025 9:55 AM EDT): Patient educated to avoid asthma triggers Pulmonary function test ordered Prednisone 40mg daily for 5 days Albuterol inhaler refilled I order nebulization at office but patient had to run for another appointment Polycystic ovarian syndrome 09/07/201508/20 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 Date Type Department Care Team Description 05/13/2025 Orders Only GENERIC EXTERNAL DATA DEPARTMENT Provider, Generic External Data 05/11/2025 Telephone [facility] [address] [place] [phone] Jennifer Rojo, RN NTTS follow-up 05/04/2025 9:15 AM EDT Office Visit [address] [address] Dary Livingston MD Major depression, recurrent, chronic (CMS/HCC) (Primary Dx); Encounter for preventive care; Smoker; Encounter for Papanicolaou smear of cervix; Mild persistent asthma without complication; Chronic migraine; Moderate persistent asthma with acute exacerbation; Dietary counseling; Exercise counseling 05/04/[address] [address] Dary Livingston MD Smoker 05/04/2025 Travel 05/01/[address] [address] Karolyn Kramer DO Chart Prep 04/27/2025 Travel 04/23/2025 Patient Outreach [address] [address] Karolyn Kramer DO Pre-visit Planning ((Unable to reach for PVP screening and or LVM) to be completed in office) 04/02/[address] [address] Karolyn Kramer DO Status Check following ED visit 04/01/2025 Orders Only [facility] External Provider, [employer] 03/11/2025 Refill [facility] [address] [place] [phone] Bernadette Deutsch NP 02/23/[address] [address] Karolyn Kramer DO No Show 02/11/[address] [address] Karolyn Kramer DO Chart Prep from Last 3 Months Immunizations Immunization Administration Dates Next Due DTaP 11/07/1993, 1,1989,07/18,1989 Hep B, Adolescent or Pediatric 04/21/1998,1997,08/26/1997 Hib (HbOC) 11/15/1990 IPV 04/02/1992, 0,1989,05/16 Influenza injectable quadriv alent IIV4 with preservative 10/27/2016 Influenza injectable quadriv alent preservative free 08/30/2023,06/08/2015 Influenza, IIV3, injectable 06/30/2018, 4 Influenza, Split (incl. colleen fied surface antigen) 05/26/2013 Influenza, seasonal, injecta ble, preservative free 07/14/2024 MMR 08/26/1997,11/15/1990 PPD Test 10/18/2015 Pneumococcal Polysaccharide PPSV23 08/19/2014 TD (adult), 2 Lf tetanus tox oid, preservative free, adsorbed 07/31/2001 Tdap 04/23/2018,06/22/2015,12/08/2009 Family History Medical History Relation Name Comments Asthma Brother Asthma Mother Hypertension Mother Relation Name Status Comments Brother Mother Social History Tobacco Use Types Packs/Day Years Used Date Smoking Tobacco: Every Day Cigarettes Smokeless Tobacco: Never Tobacco Cessation:Ready to Q uit: Not Asked; Counseling Given: Not Answered Depression Answer Date Recorded Patient Health Questionnaire-9 Score 17 05/11/2025 Patient Health Questionnaire-9 Score 17 05/11/2025 Last PHQ-9: Questionnaire Data Not on file 0 05/11/2025 Housing Stability Answer Date Recorded What is your housing situation today? I do not have housing (Staying with others, in a hotel, in a longterm, living outside on the street, on a [...] Orientation Straight 06/19/2022 10 :14 AM EDT Last Filed Vital Signs Vital Sign Reading Time Taken Comments Blood Pressure 126/84 05/04/2025 9:17 AM EDT Pulse 84 05/04/2025 9:17 AM EDT Temperature 36.9 C (98.5 F) 05/04/2025 9:17 AM EDT Respiratory Rate 20 05/04/2025 9:17 AM EDT Oxygen Saturation 95% 05/04/2025 9:17 AM EDT Inhaled Oxygen Concentration - - Weight 92.2 kg (203 lb 3.2 oz) 05/04/2025 9:17 A M EDT Height 165.1 cm (5' 5 ) 05/04/2025 9:17 AM EDT Body Mass Index 33.81 05/04/2025 9:17 AM EDT Plan of Treatment Health Maintenance Due Date Last Done Comments Alcohol/Substance Use Screening 2001 Family Planning (PISQ) 02/23/2004 HPV Vaccines (1 - 3-dose series) 02/23/2004 Pap Smear 2010 Pneumococcal Vaccine: Pediatrics (0 to 5 Years) and At-Risk Patients (6 to 49) Years (2 of 2 - PCV) 08/19/2015 08/19/2014 Cervical Cancer Screening 2019 HPV/Cotest 2019 COVID-19 Vaccine ( season) 2025 01/24/2022, 06/16/2021, 05/20/2021 Influenza Vaccine (#1) 2025 , 08/30/2023, 06/30/2018, Additional history exists Depression Monitoring 11/08/2025 05/11/2025, 025 Disability Screening 04/27/2026 04/27/2025 SDOH Screening 05/04/2026 05/04/2025 Tobacco Screening 05/04/2026 05/04/2025 DTaP/Tdap/Td Vaccines (9 - Td or Tdap) 04/23/2028 04/23/2018, 06/22/2015, 12/08/2009, Additional history exists Lipid Panel 08/30/2028 08/30/2023 Zoster Vaccines (1 of 2) 2039 RSV Patients and Patients Aged 60 years or older (1 - 1-dose 75+ series) 02/23/2064 HIB Vaccines Completed 11/15/1990 IPV Vaccines Completed 04/02/1992, 09/21, 1989, Additional history exists Hepatitis B Vaccines Completed 04/21/1998, 12/11/1997, 08/26/1997 HIV Screening Completed 08/30/2023 Hepatitis C Screening Completed 08/30/2023 Hepatitis A Vaccines Aged Out No long er eligible based on patient's age to complete this topic Meningococcal B Vaccine Aged Out No l onger eligible based on patient's age to complete this topic Meningococcal Vaccine Aged Out No wiliam dean eligible based on patient's age to complete this topic RSV under 20 months Aged Out No longe r eligible based on patient's age to complete this topic Rotavirus Vaccines Aged Out No longer eligible based on patient's age to complete this topic Procedures Procedure Name Priority Date/Time Associated Diagnosis Comments HCG, QL, URINE Routine 05/13/2025 12:17 PM EDT SARS COV2/INFLUENZA A/B AND RSV RNA QL NAAT Routine 04/01/2025 4:57 PM EDT XR CHEST 2 VIEWS Routine 04/01/2025 3:55 PM EDT HEPATITIS C AB W/REFL TO HCV RNA, QN, PCR Routine 08/30/2023 1:21 PM EST Encounter for routine adult health examination without abnormal findings HIV 1/2 ANTIGEN/ANTIBODY, FOURTH GENERATION W/RFL Routine 08/30/2023 1:21 PM EST Encounter for routine adult health examination without abnormal findings LIPID PANEL, STANDARD Routine 08/30/2023 1:21 PM EST Encounter for routine adult health examination without abnormal findings from Last 3 Months or Most Recently Relevant to Health Maintenance Results * HCG, Qualitative, Urine (05/13/2025 12:17 PM EDT) Urine NEGATIVE NEGATIVE [facility] Comment:This test was develo ped to detect early . Falsenegative results may occur after the 5th - 7th week ofpregnancy when using this test method. If clinicallyindicated, consider a serum hCG. 05/13/2025 12:1 7 PM EDT 05/13/2025 12:21 PM EDT us Generic External Data Provider LAB URINE ORDERAB LES Final Result [facility] [address] [place] [phone] * SARS-CoV-2 RNA, Influenza A/B, and RSV RNA, Ql NAAT (04/01/2025 4:57 PM EDT) Influenza A PCR NEGATIVE Negative [facility] Influenza B PCR NEGATIVE Negative [facility] Resp Syncy Virus RNA Qual PCR NEGATIVE Negative [facility] SARS COV2 PCR NEGATIVE Negative [facility] Comment:All test results mus t be correlated with clinical findings.Negative results do not preclude SARS-CoV2, influenza Avirus, influenza B virus and/or RSV infectionand should not be used as the sole basis for treatment orother patient management decisions. Negative results must becombined with clinical observations, patient history, andepidemiological information.This test has not been evaluated for monitoring treatment ofinfection.This test has been authorized by the FDA under an EmergencyUse Authorization (EUA) for use by authorized laboratories.Testing performed on the [employer] GeneXpert utilizingreal-time RT-PCR.All SARS CoV2 and positive influenza A/B results arereported to [facility]. 04/01/2025 4:57 PM EDT 04/01/2025 5:22 PM EDT us Generic External Data Provider LAB MICROBIOLOGY - GENERAL ORDERABLES Final Result Performing Organization Address City/State/[facility] Co de Phone Number [facility] [address] [place] [phone] * XR Chest 2 Views (04/01/2025 3:55 PM EDT) Anatomical Region Laterality Modality Chest Radiographic Chely ging 04/01/2025 3:55 PM EDT Narrative 04/01/2025 4:58 PM EDT [address] [address] XRay Report Signed Patient: Mayte Blood MR#: [id number] 182 : 1990 Acct:[id number] Age/Sex: 35 / F ADM Date: 04/01/25 Loc: .ED Attending Dr: Ordering Physician: eJssie Mena NP Date of Service: 04/01/25 Procedure(s): XR chest 2V Accession Number(s): [id number] cc: Karolyn Kramre DO; Jessie Mena NP EXAMINATION: XR CHEST CLINICAL INFORMATION: cough and dyspnea COMPARISON: Chest 07/13/2024 TECHNIQUE: 2 views of the chest were obtained. FINDINGS: No significant abnormality is noted involving the heart, lungs, mediastinum, bony thorax or soft tissues. XR/XR chest 2V IMPRESSION: Unremarkable chest examination. Electronically signed by: Collin Owen MD 04/01/2025 04:56 PM EDT Dictated By: Collin Owen MD Signed By: <Electronically signed by Collin Owen MD in OV> 04/01/25 1656 DD/ 1555 TD/TT: 04/01/25 1653 Strategic Procurement Manager: SOLIS Procedure Note Donotuseinterpreter, Image - 04/01/[address] [address] XRay Report Signed Patient: Mayte BloodMR#: [id number] : 1990Acct:[id number] Age/Sex: 35 / FADM Date: 04/01/25 Loc: HO.ED Attending Dr: Ordering Physician: Jessie Mena NP Date of Service: 04/01/25 Procedure(s): XR chest 2V Accession Number(s): [id number] cc: Karolyn Kramer DO; Jessie Mena NP EXAMINATION: XR CHEST CLINICAL INFORMATION: cough and dyspnea COMPARISON: Chest 07/13/2024 TECHNIQUE: 2 views of the chest were obtained. FINDINGS: No significant abnormality is noted involving the heart, lungs, mediastinum, bony thorax or soft tissues. XR/XR chest 2V IMPRESSION: Unremarkable chest examination. Electronically signed by: Collin Owen MD 04/01/2025 04:56 PM EDT RP Dictated By: Collin Owen MD Signed By: <Electronically signed by Collin Owen MD in OV> 04/01/25 1656 DD/ 1555 TD/TT: 04/01/251652 Strategic Procurement Manager: [facility] External Provider IMG XR PROCEDURES Final Result * Hepatitis C Antibody with Reflex to HCV, RNA, Quantitative, Real-Time PCR (08/30/2023 1:21 PM EST) Hepatitis C Antibody Nonreactive Nonreactive [facility] Comment:Antibodies to HCV no t detected; does not exclude early acuteHCV infection. Blood Venous blood specimen / Unknown 08/30/2023 1:21 PM EST 08/30/2023 4:06 PM EST Result [facility] Karolyn Kramer DO LAB BLOOD ORDERABLES Final R esult Performing Organization Address City/[facility]/ZIP Co de Phone Number [facility] [address] [place] [phone] * HIV-1/2 Antigen and Antibodies, Fourth Generation, with Reflexes (08/30/2023 1:21 PM EST) HIV AB/AG Nonreactive Nonreactive [facility] Comment:HIV-1 p24 Ag and/or HIV-1/HIV-2 Ab not detected.A test result that is nonreactive does not exclude thepossibility of exposure to or infection with HIV-1 and/orHIV-2. Nonreactive results in this assay for individualswith prior exposure to HIV-1 and/or HIV-2 may be due toantigen and antibody levels that are below the limit ofdetection of this assay.The [employer] HIV Ag/Ab Combo assay result andsupplemental assay results should be interpreted inconjunction with the patient's clinical presentation,history and other laboratory results. If the results areinconsistent with clinical evidence, additional testing issuggested to confirm the result. Blood Venous blood specimen / Unknown 08/30/2023 1:21 PM EST 08/30/2023 4:06 PM EST Karolyn Kramer DO LAB BLOOD ORDERABLES [facility] Performing Organization Address [facility]/ZIP Co de Phone Number [facility] [address] [place] [phone] * Lipid Panel, Standard (08/30/2023 1:21 PM EST) Triglycerides 106 <150 mg/dL [facility] Comment:Desirable Triglyceri de: less than 150 mg/dLBorderline High Triglyceride 150-199 mg/dLHigh Triglyceride: 200-499 mg/dLVery High Triglyceride: greater than or equal to 5OO mg/dL Cholesterol 147 <200 mg/dL [facility] Comment:Desirable Cholestero l: less than 200 mg/dLBorderline High Cholesterol: 200-239 mg/dLHigh Cholesterol: greater than 239 mg/dL LDL Cholesterol Calculated 79 <100 mg/dL [facility] Comment:Desirable LDL: less than 100 mg/dLNear Optimal/Above Optimal LDL: 110- 129 mg/dLBorderline High LDL: 130-159 mg/dLHigh LDL: 160-189 mg/dLVery High LDL: greater than or equal to 190 mg/dL HDL Cholesterol 47 >40 mg/dL [facility] Comment:Desirable HDL: great er than 40 mg/dL Note: This HDL assay may give artificially low results in patients with liver disease. Blood Venous blood specimen / Unknown 08/30/2023 1:21 PM EST 08/30/2023 4:06 PM EST us Karolyn Kramer DO LAB BLOOD ORDERABLES Final R esult [facility] [address] [place] [phone] from Last 3 Months or Most Recently Relevant to Health Maintenance Insurance * Guarantor: Mayte Blood Account Type Relation to Patient Date of Phone Billing Address Personal/Family Self [address] [place] [phone] [facility] C3 Member Subscriber Plan / Payer (Ef fective 2022-Present) Name:Jeremi Mayte Relation to Subscriber:Self Name:Blood Mayte Payer ID:Not on file Group ID:Not on file Type:Medicaid Address: [facility] [id number] [place] [address] * Guarantor: Mayte Blood Account Type Relation to Patient Date of Phone Billing Address Personal/Family Self [address] [place] [phone] * Guarantor: Mayte Blood Account Type Relation to Patient Date of Phone Billing Address Personal/Family Self [address] [place] [phone] * Guarantor: Mayte Blood Account Type Relation to Patient Date of Phone Billing Address Personal/Family Self [address] [place] [phone] Care Teams Aoc Plans Intelligence Officer Relationship Specialty Start Date End Date Karolyn Kramer DO [address] [place] [address] [phone] PCP - General Family Medicine 08/24/23 April Hopson Mingle OperatorPain Management Specialist 09/03/24
== END 2025-05-13 13:09 | disposition home or self-care (01) ==
PROVIDERS: Emergency Provider Emergency Medicine; PCP Family Medicine
DX: J45.901 Unspecified asthma with (acute) exacerbation (principal); R06.02 Shortness of breath; Z11.52 Encounter for screening for COVID-19
CPT/HCPCS: 81025; 87635; 94640; 99284; 99285